=== PATIENT | male | born 1965 | race Caucasian/White ===

== ENCOUNTER 2020-06-09 02:27 | Inpatient (IN) | payer OTHER ==
[2020-06-09] MEDS ORDERED: Acetaminophen 500 MG TAB ONE (02:56)
[2020-06-09 03:35] LABS: #Lymphocytes 0.4 thou/uL (1.20-3.40); #Monocytes 0.4 thou/uL (0.11-0.59); #Neutrophils 6.1 thou/uL (1.40-6.50); %Basophils 0.2 % (0.0-1.0); %Eosinophils 0.3 % (0.0-10.0); %Lymphocytes 6.2 % (21.0-51.0); %Monocytes 6.2 % (0.0-10.0); Mean Corpuscular HGB CONC 35.7 g/dL (32.0-36.0); Mean Corpuscular Hemoglobin 33.8 pg (27.0-31.0); Mean Corpuscular Volume 94.9 fL (78.0-98.0); Mean Platelet Volume 7.7 fL (7.4-10.4); Platelet Count 171 thou/uL (130-400); RBC Distribution Width 11.4 % (11.5-14.5); Red Blood Cell (RBC) Count 4.43 mill/uL (4.70-6.10); White Blood Cell (WBC) Count 7.1 thou/uL (4.8-10.8)
[2020-06-09 03:56] LABS: ALT (SGPT) 53 U/L (8-55); AST (SGOT) 84 U/L (5-34); Albumin 3.8 g/dL (3.5-5.0); Alkaline Phosphatase 75 U/L (40-110); Anion Gap 18 mmol/L (10-20); BUN (Urea Nitrogen) 9 mg/dL (8.4-25.7); Bilirubin, Total 0.6 mg/dL (0.2-1.2); Calc. Creatinine Clearance 0 mL/min (70-130); Calcium 8.4 mg/dL (7.8-10.44); Carbon Dioxide 22 mmol/L (22-29); Chloride 86 mmol/L (98-107); Globulin 3.2 g/dL (2.4-3.5); Glucose 106 mg/dL (70-105); Potassium 4.5 mmol/L (3.5-5.1); Sodium 121 mmol/L (136-145)
[2020-06-09 04:46] LABS: Bilirubin Negative (Negative); Blood, Urine 1+ (Negative); Clarity Clear (Clear); Glucose, Urine (Dipstick) Normal (Negative); Ketone, Urine 20 mg/dL (Negative); Leukocyte Negative Leu/uL (Negative); Nitrite Negative (Negative); Protein, Urine (Dipstick) 20 mg/dL (Neg-Trace); Specific Gravity, Urine 1.009 (1.002-1.036); Urobilinogen Normal mg/dL (Less than 2); pH, Urine 5.5 (5.0-9.0)
[2020-06-09 04:47] LABS: Bacteria/HPF None Seen HPF (None Seen); RBC/HPF 0-3 HPF (0-3); Squamous Epithelial None Seen HPF (0-3); WBC/HPF 0-3 HPF (0-3)
[2020-06-09] MEDS ORDERED: Azithromycin 500 MG VIAL ONE (05:15)
[2020-06-09] MEDS ORDERED: Dexamethasone 10 MG/ML VIAL ONE (05:15)
[2020-06-09] MEDS ORDERED: cefTRIAXone\\ROCEPHIN 1 GM VIAL ONE (05:15)
--- NOTE | 2020-06-09 06:18 | PDOC.HHP ---
Hospitalist HPI - History of Present Illness sob, cough History of Present Illness: This is a 54-year-old male patient with a history of cardiac arrhythmias, atrial fibrillation status post ablation, obesity who presents with shortness of breath and cough for 7 days. Symptoms began about 7 days ago however 2 days ago he took it Covid test which was positive. With worsening shortness of breath and cough and he presented to the ED for further evaluation. He admits to dull substernal chest pain associated with cough and. He does note subjective fevers, dysuria frequency polyuria abdominal pain or diarrhea. At presentation it was noted his blood pressure was 175/96, pulse 85, respiratory 22, temperature 101.9 saturating at 95 on room air. His labs showed UA negative, D-dimer elevated at 1.41, he had his hyponatremia of 121, with chest imaging consistent with bilateral infiltrates. CTA was done which is yet to. Was given azithromycin, Tylenol and ceftriaxone. Also started on Decadron 10 mg. Received normal saline 1 L as well. Hospitalist team was consulted for admission. Hospitalist History - Past Medical History Cardiac: reports: AFIB - Past Surgical History Other Surgical History: A. fib ablation - Family History Family History: reports: no pertinent history - Social History Smoking Status: Never smoker Alcohol: reports: Occassional Living Situation: With Family - Exam General Appearance: awake alert General - other findings: anxious Eye: PERRL, anicteric sclera ENT: normocephalic atraumatic Heart: RRR, no murmur, no gallops, no rubs Respiratory - other findings: Reduced air entry bilaterally. Scattered wheezes Gastrointestinal: soft, non-tender, non-distended, normal bowel sounds Extremities: no cyanosis, no clubbing, no edema Neurological: cranial nerve grossly intact, no weakness, no focal deficits Musculoskeletal: normal tone, normal strength, no muscle wasting Psychiatric: normal affect, normal behavior, A&O x 3 Hospitalist Results - Labs Result Diagrams: 06/09/20 03:02 06/09/20 03:02 Lab results: WBC 7.1 thou/uL (4.8-10.8) 06/09/20 03:02 Hgb 15.0 g/dL (14.0-18.0) 06/09/20 03:02 Hct 42.1 % (42.0-52.0) 06/09/20 03:02 MCV 94.9 fL (78.0-98.0) 06/09/20 03:02 Plt Count 171 thou/uL (130-400) 06/09/20 03:02 Neutrophils % 87.0 % (42.0-75.0) H 06/09/20 03:02 Sodium 121 mmol/L (136-145) L 06/09/20 03:02 Potassium 4.5 mmol/L (3.5-5.1) 06/09/20 03:02 Chloride 86 mmol/L (98-107) L 06/09/20 03:02 Carbon Dioxide 22 mmol/L (22-29) 06/09/20 03:02 BUN 9 mg/dL (8.4-25.7) 06/09/20 03:02 Creatinine 0.80 mg/dL (0.7-1.3) 06/09/20 03:02 Glucose 106 mg/dL (70-105) H 06/09/20 03:02 Lactic Acid 1.8 mmol/L (0.5-2.2) 06/09/20 03:02 Calcium 8.4 mg/dL (7.8-10.44) 06/09/20 03:02 Total Bilirubin 0.6 mg/dL (0.2-1.2) 06/09/20 03:02 AST 84 U/L (5-34) H 06/09/20 03:02 ALT 53 U/L (8-55) 06/09/20 03:02 Alkaline Phosphatase 75 U/L (40-110) 06/09/20 03:02 B-Natriuretic Peptide 43.6 pg/mL (0-100) 06/09/20 03:02 Serum Total Protein 7.0 g/dL (6.0-8.3) 06/09/20 03:02 Albumin 3.8 g/dL (3.5-5.0) 06/09/20 03:02 Urine Ketones 20 mg/dL (Negative) A 06/09/20 04:15 Urine Blood 1+ (Negative) A 06/09/20 04:15 Urine Nitrite Negative (Negative) 06/09/20 04:15 Ur Leukocyte Esterase Negative Tu/uL (Negative) 06/09/20 04:15 Urine RBC 0-3 HPF (0-3) 06/09/20 04:15 Urine WBC 0-3 HPF (0-3) 06/09/20 04:15 Ur Squamous Epith Cells None Seen HPF (0-3) 06/09/20 04:15 Urine Bacteria None Seen HPF (None Seen) 06/09/20 04:15 Hospitalist H&P A/P - Plan Plan: This is a 54-year-old male patient with a history of atrial fibrillation is apixaban status post ablations presented on account of a week history of worse matthias shortness of breath and cough. He tested positive for Covid 2 days ago. Acute hypoxic respiratory failure Patient currently requiring 2 L oxygen This is in the setting of of Covid pneumonia Oxygen therapy as needed Pulmonology consult if deteriorates Pneumonia due to Covid We will start zinc vitamin D and see Continue Decadron Convalescent plasma Given his symptoms he is out of remdesivir window. We will seek ID opinion Continue monitoring. 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 Atrial fibrillation Continue anticoagulation on apixaban We will monitor. CODE STATUSfull code VT prophylaxistherapeutic on apixaban.
--- NOTE | 2020-06-09 07:51 | CT ---
"PRELIMINARY REPORT" PRELIMINARY REPORT/[facility]/EMERGENCY AFTER HOURS PROCEDURE EXAM: CTA Chest with Intravenous Contrast CLINICAL HISTORY: 54M presenting for cough, shortness of breath, and chest pain on day 7 of COVID pna. Tested positive 2 days ago. History of hypertension, and past bouts of afib, no current anticoagulation. TECHNIQUE: Axial CTA images of the chest with intravenous contrast. Three-dimensional MIP/volume rendered reform ations were performed. CONTRAST: With; ISOVUE 370,100mL COMPARISON: None provided. FINDINGS: PULMONARY ARTERIES There is no intraluminal filling defect suspicious for PE. AORTA No thoracic aortic aneurysm or dissection. LUNGS Patchy solid and groundglass opacities throughout the visualized lungs are compatible with multifocal pneumonia, consistent with COVID-19 pneumonia in the appropriate clinical setting. PLEURAL SPACES No pleural effusion. No pneumothorax. HEART AND MEDIASTINUM The heart is normal in size. No significant pericardial effusion. LYMPH NODES Right paratracheal lymph node measuring up to 1.2 cm in short axis. Left paratracheal lymph node radha uring up to 1.7 cm in short axis. Subcarinal lymph node measuring up to 1.7 cm in short axis BONES No focal osseous abnormality or acute fracture. CHEST WALL AND UPPER ABDOMEN Images through the upper abdomen are unremarkable. The chest wall is unremarkable. IMPRESSION: Patchy solid and groundglass opacities throughout the visualized lungs are compatible with multifocal pneumonia, consistent with COVID-19 pneumonia in the appropriate clinical setting. No pulmonary embolism. No thoracic aortic aneurysm or dissection. Mediastinal lymphadenopathy which is likely reactive. ELECTRONICALLY SIGNED BY: Cami Hernandez MD Jun 09, 2020 5:12:29 AM GALLERY MANAGER This report is intended for review by the ordering physician only, in accordance of law. If you recei ve this report in error, please call [facility] at [phone]. FINAL REPORT Emergent after hours CT angiogram thorax with IV contrast and 3-D reconstructions HISTORY: Patient diagnosed with COVID pneumonia 2 days ago. Patient is now having increased shortness of breath. COMPARISON: CT thorax on 04/17/2016. IMPRESSION: 1. COVID pneumonia. Patchy groundglass densities as well as areas of consolidation are seen within th e lungs bilaterally. 2. Trace bilateral pleural effusions. 3. Mediastinal and hilar lymphadenopathy likely reactive in origin. 4. No CT evidence of a pulmonary embolus. 5. Findings are in agreement with preliminary report by [facility]. Code QA Transcribed Date/Time: 06/09/2020 8:45 AM
[2020-06-09 08:10] LABS: Anion Gap 17 mmol/L (10-20); BUN (Urea Nitrogen) 9 mg/dL (8.4-25.7); Calc. Creatinine Clearance 0 mL/min (70-130); Calcium 8.5 mg/dL (7.8-10.44); Carbon Dioxide 22 mmol/L (22-29); Chloride 90 mmol/L (98-107); Glucose 113 mg/dL (70-105); Potassium 4.8 mmol/L (3.5-5.1); Sodium 124 mmol/L (136-145)
[2020-06-09] MEDS ORDERED: Furosemide 40 MG TAB PO SCH (09:00)
[2020-06-09] MEDS: Zinc Sulfate 220 MG CAP PO SCH (09:21)
[2020-06-09] MEDS: guaiFENesin/Codeine Phosphate 200 mg/20 mg 10 ml UD Cup PO PRN ×2 (09:21→18:17)
[2020-06-09] MEDS: Benzonatate 100 MG CAP PO SCH ×3 (09:21→19:36)
[2020-06-09] MEDS: Apixaban 5 MG TAB PO SCH ×2 (09:21)
[2020-06-09] MEDS: Dexamethasone 4 mg/ml Vial SLOW IVP SCH (09:21)
[2020-06-09] MEDS: Cholecalciferol (Vitamin D3) 400 UNITS TAB PO SCH (09:21)
[2020-06-09] MEDS: Ascorbic Acid 500 mg Chewable Tablet PO SCH (09:21)
--- NOTE | 2020-06-09 09:44 | RAD ---
PORTABLE CHEST: Date: 06/09/2020 HISTORY: Follow-up COVID pneumonia. COMPARISON: Chest x-ray dated 04/17/2016. FINDINGS: Heart size is enlarged. Bilateral fairly extensive lung infiltrates are seen. Some prominent changes in the right upper and left upper and lower lung vyas. IMPRESSION: Bilateral lung infiltrates compatible with COVID pneumonia. POS: OFF
[2020-06-09 11:50] LABS: Anion Gap 18 mmol/L (10-20); BUN (Urea Nitrogen) 10 mg/dL (8.4-25.7); Calc. Creatinine Clearance 151 mL/min (70-130); Calcium 8.7 mg/dL (7.8-10.44); Carbon Dioxide 19 mmol/L (22-29); Chloride 92 mmol/L (98-107); Glucose 148 mg/dL (70-105); Potassium 4.4 mmol/L (3.5-5.1); Sodium 125 mmol/L (136-145)
[2020-06-09] MEDS ORDERED: Iopamidol-370 76% 500 ML 1 ML ONE (13:22)
--- NOTE | 2020-06-09 15:04 | CON ---
DATE OF CONSULTATION: 06/09/2020 SERVICE: Nephrology. REASON FOR CONSULTATION: Hyponatremia. REQUESTING PHYSICIAN: Terry Monique MD. HISTORY OF PRESENT ILLNESS: A 54-year-old male with known history of atrial fibrillation status post ablation, obesity, amongst others, who was admitted due to worsening shortness of breath and cough for about 7 days. Associated with subjective fever, dysuria, frequency, and polyuria. The patient recently was found to be COVID positive 2 days ago. On presentation, he was found to be febrile with temperature of 101.9. He also has bilateral infiltrates on CT scan of the chest. The patient also was found to have hyponatremia with sodium of 121, necessitating Nephrology consult. PAST MEDICAL HISTORY: 1. Hypertension. 2. Obesity. 3. Paroxysmal atrial fibrillation. 4. Obesity. PAST SURGICAL HISTORY: Ablation. FAMILY HISTORY: Reviewed, but noncontributory. SOCIAL HISTORY: The patient lives with family. Never smoker. Drinks alcohol occasionally. ALLERGIES: PENICILLIN. MEDICATIONS: Prior to hospital medications: 1. Metoprolol succinate 100 mg p.o. daily. 2. Aspirin 81 mg p.o. daily. 3. Multivitamin. 4. Omeprazole 20 mg p.o. daily. REVIEW OF SYSTEMS: 12-point review of system performed was negative other than pertinent positives and negatives included in the History of Present Illness. PHYSICAL EXAMINATION: VITAL SIGNS: Temperature 99.5, pulse 83, respiratory rate 18, SpO2 of 98% on 1 L nasal cannula, blood pressure is 136/83. GENERAL: Obese male, in no obvious distress. Afebrile. Anicteric. Acyanotic. HEENT: Normocephalic, atraumatic. Oral mucosa is moist. NECK: Supple with no JVD. CARDIOVASCULAR: Regular rhythm and rate with normal heart sounds one and two. RESPIRATORY: Fair air entry bilaterally with some transmitted breath sounds. No obvious rhonchi were appreciated. GI: Full, soft, nontender, nondistended with normal bowel sounds. EXTREMITIES: Mild bilateral leg edema noted. PILOT CONTROL OPERATOR: Conscious, alert, oriented x3 with appropriate mental status. Cranial nerves II through XII are grossly intact. The patient moves all extremities. DIAGNOSTIC DATA: CBC showed WBC count of 7.1, hemoglobin of 15.0, MCV of 94.9, platelets of 171. Chemistry on presentation at 03 hours, Hai 22nd showed sodium 121, potassium 4.4, chloride 86, CO2 of 22, BUN 9, creatinine 0.80, glucose 106, calcium 8.4, total bilirubin 0.6, AST 84, ALT 53, alkaline phosphatase 75, total protein 7.0, albumin 3.8. Repeat BMP at 7 hours earlier today showed sodium 124, chloride 90, creatinine 0.82. Plasma osmolality is 352, while urine osmolality is pending at this time. Urinalysis showed light yellow clear urine with pH of 5.5, specific gravity of 1.009, normal glucose, positive blood and ketone, negative nitrites and leukocyte esterase. CT angio chest showed no intraluminal filling defect suspicious of PE. Bilateral multifocal ground-glass opacity throughout the visualized lungs is noted, compatible with multifocal pneumonia due to COVID-19 pneumonia. ASSESSMENT: 1. Hyponatremia, this is most likely due to syndrome of inappropriate antidiuretic hormone secretion in the context of acute pneumonia. 2. Hypertension, on treatment. 3. 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 4. COVID pneumonia with acute respiratory failure with hypoxia. 5. Paroxysmal cough episodes. 6. Paroxysmal atrial fibrillation, status post ablation. PLAN: 1. We will start Lasix 40 mg daily in view of possible pulmonary congestion as well as bilateral leg edema. Also, the patient has COVID pneumonia. 2. We will monitor electrolytes closely to avoid aggressive correction. 3. Continue antihypertensives and other medication. Further treatment to follow depending on hospital course. Job ID: [id number] [facility]
--- NOTE | 2020-06-09 15:37 | PDOC.HOSPP ---
- Subjective Encounter Date: 06/09/20 Encounter Time: 15:35 Subjective: Mr. Dunn was seen today in follow-up of COVID infection and hyponatremia. He notes feeling short of breath, and was coughing most of the night, and could not sleep. He also feels a bit weak as well. - Objective Vital Signs & Weight: Vital Signs (12 hours) Temp Pulse Resp BP BP Pulse Ox 06/09/20 15:30 102.2 F H 89 18 151/75 H 100 06/09/20 11:05 98.9 F 84 22 H 168/95 H 97 06/09/20 08:00 99.5 F 83 18 136/83 98 06/09/20 06:55 99.1 F 85 18 134/72 100 Weight Weight 224 lb 13.944 oz Result Diagrams: 06/09/20 03:02 06/09/20 11:12 Hospitalist ROS - Medication Medications: Active Medications Generic Name Dose Route Start Last Admin Trade Name Freq PRN Reason Stop Dose Admin Ascorbic Acid 1,000 mg 06/09/20 09:00 06/09/20 09:21 Ascorbic Acid 500 Mg Chewable Tablet PO 1,000 mg DAILY DEBBIE Administration Benzonatate 200 mg 06/09/20 09:00 06/09/20 09:21 Benzonatate 100 Mg Cap PO 200 mg TID DEBBIE Administration Cholecalciferol 400 units 06/09/20 09:00 06/09/20 09:21 Cholecalciferol (Vitamin D3) 400 Units Tab PO 400 units DAILY DEBBIE Administration Dexamethasone 8 mg 06/09/20 09:00 06/09/20 09:21 Dexamethasone 4 Mg/Ml Vial SLOW IVP 8 mg DAILY DEBBIE Administration Guaifenesin/Codeine Phosphate 10 ml 06/09/20 08:55 06/09/20 09:21 Guaifenesin/Codeine Phosphate 200 Mg/20 Mg 10 Ml Ud Cup PO 10 ml Q6H PRN Administration Cough Sodium Chloride 10 ml 06/09/20 09:00 06/09/20 09:22 Flush - Normal Saline 10 Ml Syringe IVF 10 ml Q12HR DEBBIE Administration Zinc Sulfate 220 mg 06/09/20 09:00 06/09/20 09:21 Zinc Sulfate 220 Mg Cap PO 220 mg DAILY DEBBIE Administration - Exam Eye: PERRL, anicteric sclera Heart: RRR, no murmur, no gallops, no rubs, normal peripheral pulses Respiratory: CTAB (with only an occasional rale) Gastrointestinal: soft, non-tender, non-distended, normal bowel sounds, no palpable masses, no hepatomegaly Extremities: no cyanosis, no edema (+ good dorsalis pedis pulses bilaterally) Hosp A/P (1) COVID-19 virus infection Code(s): U07.1 - COVID-19 Status: Acute (2) Hyponatremia Code(s): E87.1 - HYPO-OSMOLALITY AND HYPONATREMIA Status: Acute (3) Acute respiratory failure Code(s): J96.00 - ACUTE RESPIRATORY FAILURE, UNSP W HYPOXIA OR HYPERCAPNIA Status: Acute (4) Atrial fibrillation Code(s): I48.91 - UNSPECIFIED ATRIAL FIBRILLATION Status: Chronic - Plan * Acute respiratory failure due to COVID infection- his respiratory symptoms are mild. He senses Dyspnea, but his oxygen saturations are in the 90"s without supplemental oxygen * If his oxygen level hold, then can consider tapering Decadron * Hyponatremia- Nephrology recommendations noted. Likely from SIADH. He has been started on Lasix * Atrial fibrillation- his heart rate is stable, and he says he is NOT on anticoagulation. Will therefore discontinue Eliquis
[2020-06-09] MEDS ORDERED: Acetaminophen 325 MG TAB PO PRN (16:06)
[2020-06-09 16:07] LABS: Anion Gap 18 mmol/L (10-20); BUN (Urea Nitrogen) 10 mg/dL (8.4-25.7); Calc. Creatinine Clearance 145 mL/min (70-130); Calcium 8.7 mg/dL (7.8-10.44); Carbon Dioxide 21 mmol/L (22-29); Chloride 91 mmol/L (98-107); Glucose 175 mg/dL (70-105); Potassium 4.2 mmol/L (3.5-5.1); Sodium 126 mmol/L (136-145)
[2020-06-10] MEDS: guaiFENesin/Codeine Phosphate 200 mg/20 mg 10 ml UD Cup PO PRN ×2 (02:20→08:19)
[2020-06-10 06:36] LABS: #Lymphocytes 0.5 thou/uL (1.20-3.40); #Monocytes 0.5 thou/uL (0.11-0.59); #Neutrophils 6.9 thou/uL (1.40-6.50); %Basophils 0.1 % (0.0-1.0); %Eosinophils 0.2 % (0.0-10.0); %Lymphocytes 6.2 % (21.0-51.0); %Monocytes 6.7 % (0.0-10.0); %Neutrophils 86.8 % (42.0-75.0); Hemoglobin 15.2 g/dL (14.0-18.0); Mean Corpuscular HGB CONC 34.9 g/dL (32.0-36.0); Mean Corpuscular Hemoglobin 32.9 pg (27.0-31.0); Mean Corpuscular Volume 94.4 fL (78.0-98.0); Mean Platelet Volume 7.6 fL (7.4-10.4); Platelet Count 217 thou/uL (130-400); RBC Distribution Width 11.3 % (11.5-14.5); Red Blood Cell (RBC) Count 4.61 mill/uL (4.70-6.10); White Blood Cell (WBC) Count 7.9 thou/uL (4.8-10.8)
[2020-06-10 06:55] LABS: Anion Gap 18 mmol/L (10-20); BUN (Urea Nitrogen) 16 mg/dL (8.4-25.7); Calc. Creatinine Clearance 143 mL/min (70-130); Calcium 8.9 mg/dL (7.8-10.44); Carbon Dioxide 25 mmol/L (22-29); Chloride 90 mmol/L (98-107); Glucose 130 mg/dL (70-105); Potassium 4.2 mmol/L (3.5-5.1); Sodium 129 mmol/L (136-145)
[2020-06-10] MEDS ORDERED: Furosemide 40 MG TAB PO SCH (07:30)
[2020-06-10] MEDS ORDERED: hydrALAZINE 25 MG TAB PO PRN (07:44)
[2020-06-10] MEDS: Benzonatate 100 MG CAP PO SCH ×2 (08:13→15:48)
[2020-06-10] MEDS: Dexamethasone 4 mg/ml Vial SLOW IVP SCH (08:13)
[2020-06-10] MEDS: Ascorbic Acid 500 mg Chewable Tablet PO SCH (08:13)
[2020-06-10] MEDS: Zinc Sulfate 220 MG CAP PO SCH (08:14)
[2020-06-10] MEDS ORDERED: Ibuprofen 600 MG TAB PO PRN (08:50)
[2020-06-10] MEDS ORDERED: Metoprolol Tartrate 50 MG TAB PO SCH (09:00)
[2020-06-10] MEDS ORDERED: Dexamethasone 20 MG/5 ML VIAL SLOW IVP SCH (09:00)
[2020-06-10] MEDS ORDERED: FLU VACC QS2020-21(6MOS UP)/PF 60 MCG/0.5 ML SYRINGE IM ONE (09:00)
[2020-06-10] MEDS: Cholecalciferol (Vitamin D3) 400 UNITS TAB PO SCH (10:20)
--- NOTE | 2020-06-10 10:42 | PDOC.NEPPN ---
- Subjective Encounter Date: 06/10/20 Subjective: Seen in follow up for hyponatremia in the context of covid pneumonia. Feeling better. Denied confusion, headache, dizziness or fever. Tolerating oral intake. - Objective Vital Signs & Weight: Vital Signs (12 hours) Temp Pulse Resp BP Pulse Ox 06/10/20 08:43 99 F 74 18 136/84 98 06/10/20 08:00 98 06/10/20 05:07 98.5 F 81 20 166/83 H 99 06/10/20 00:24 98.3 F 77 20 173/101 H 96 Weight Weight 224 lb 13.944 oz Result Diagrams: 06/10/20 06:06 06/10/20 06:06 Nephrology ROS - Medication Medications: Active Medications Generic Name Dose Route Start Last Admin Trade Name Freq PRN Reason Stop Dose Admin Acetaminophen 650 mg 06/09/20 16:06 06/09/20 16:32 Acetaminophen 325 Mg Tab PO 650 mg Q4H PRN Administration Headache/Fever or Pain Ascorbic Acid 1,000 mg 06/09/20 09:00 06/10/20 08:13 Ascorbic Acid 500 Mg Chewable Tablet PO 1,000 mg DAILY DEBBIE Administration Benzonatate 200 mg 06/09/20 09:00 06/10/20 08:13 Benzonatate 100 Mg Cap PO 200 mg TID DEBBIE Administration Cholecalciferol 400 units 06/09/20 09:00 06/10/20 10:20 Cholecalciferol (Vitamin D3) 400 Units Tab PO 400 units DAILY DEBBIE Administration Dexamethasone 8 mg 06/09/20 09:00 06/10/20 08:13 Dexamethasone 4 Mg/Ml Vial SLOW IVP 8 mg DAILY DEBBIE Administration Furosemide 40 mg 06/10/20 07:30 06/10/20 08:13 Furosemide 40 Mg Tab PO 40 mg DAILY-AC DEBBIE Administration Guaifenesin/Codeine Phosphate 10 ml 06/09/20 08:55 06/10/20 08:19 Guaifenesin/Codeine Phosphate 200 Mg/20 Mg 10 Ml Ud Cup PO 10 ml Q6H PRN Administration Cough Metoprolol Succinate 50 mg 06/10/20 09:00 06/10/20 08:13 Metoprolol Succinate Xl 50 Mg Tab PO 50 mg DAILY DEBBIE Administration Sodium Chloride 10 ml 06/09/20 09:00 06/10/20 08:14 Flush - Normal Saline 10 Ml Syringe IVF 10 ml Q12HR DEBBIE Administration Zinc Sulfate 220 mg 06/09/20 09:00 06/10/20 08:14 Zinc Sulfate 220 Mg Cap PO 220 mg DAILY DEBBIE Administration - Exam General Appearance: awake alert Eye: anicteric sclera ENT: normocephalic atraumatic, moist mucosa Neck: supple, symmetric, no JVD Respiratory - other findings: fair air entry bilaterally with some transmitted sound. Cardiovascular: RRR Gastrointestinal: soft, non-distended, normal bowel sounds Extremities: no cyanosis, no edema Neurological: CN's grossly intact, no focal deficits PSYCH: A&O x 3 Nephrology Results - Labs Result Diagrams: 06/10/20 06:06 06/10/20 06:06 Lab results: WBC 7.9 thou/uL (4.8-10.8) 06/10/20 06:06 Hgb 15.2 g/dL (14.0-18.0) 06/10/20 06:06 Hct 43.5 % (42.0-52.0) 06/10/20 06:06 MCV 94.4 fL (78.0-98.0) 06/10/20 06:06 Plt Count 217 thou/uL (130-400) 06/10/20 06:06 Neutrophils % 86.8 % (42.0-75.0) H 06/10/20 06:06 Sodium 129 mmol/L (136-145) L 06/10/20 06:06 Potassium 4.2 mmol/L (3.5-5.1) 06/10/20 06:06 Chloride 90 mmol/L (98-107) L 06/10/20 06:06 Carbon Dioxide 25 mmol/L (22-29) 06/10/20 06:06 BUN 16 mg/dL (8.4-25.7) 06/10/20 06:06 Creatinine 0.84 mg/dL (0.7-1.3) 06/10/20 06:06 Glucose 130 mg/dL (70-105) H 06/10/20 06:06 Lactic Acid 1.8 mmol/L (0.5-2.2) 06/09/20 03:02 Calcium 8.9 mg/dL (7.8-10.44) 06/10/20 06:06 Total Bilirubin 0.6 mg/dL (0.2-1.2) 06/09/20 03:02 AST 84 U/L (5-34) H 06/09/20 03:02 ALT 53 U/L (8-55) 06/09/20 03:02 Alkaline Phosphatase 75 U/L (40-110) 06/09/20 03:02 B-Natriuretic Peptide 43.6 pg/mL (0-100) 06/09/20 03:02 Serum Total Protein 7.0 g/dL (6.0-8.3) 06/09/20 03:02 Albumin 3.8 g/dL (3.5-5.0) 06/09/20 03:02 Urine Ketones 20 mg/dL (Negative) A 06/09/20 04:15 Urine Blood 1+ (Negative) A 06/09/20 04:15 Urine Nitrite Negative (Negative) 06/09/20 04:15 Ur Leukocyte Esterase Negative Tu/uL (Negative) 06/09/20 04:15 Urine RBC 0-3 HPF (0-3) 06/09/20 04:15 Urine WBC 0-3 HPF (0-3) 06/09/20 04:15 Ur Squamous Epith Cells None Seen HPF (0-3) 06/09/20 04:15 Urine Bacteria None Seen HPF (None Seen) 06/09/20 04:15 Sodium 129 mmol/L (136-145) L 06/10/20 06:06 Potassium 4.2 mmol/L (3.5-5.1) 06/10/20 06:06 Chloride 90 mmol/L (98-107) L 06/10/20 06:06 Carbon Dioxide 25 mmol/L (22-29) 06/10/20 06:06 Anion Gap 18 mmol/L (10-20) 06/10/20 06:06 BUN 16 mg/dL (8.4-25.7) 06/10/20 06:06 Creatinine 0.84 mg/dL (0.7-1.3) 06/10/20 06:06 Glucose 130 mg/dL (70-105) H 06/10/20 06:06 Calcium 8.9 mg/dL (7.8-10.44) 06/10/20 06:06 Albumin 3.8 g/dL (3.5-5.0) 06/09/20 03:02 Nephrology AP PN - Plan ASSESSMENT: Hyponatremia: Due to syndrome of inappropriate antidiuretic hormone secretion in the context of acute pneumonia. 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 COVID pneumonia with acute respiratory failure with hypoxia. Paroxysmal atrial fibrillation, status post ablation. PLAN Continue lasix and fluid restriction Start metoprolol succinate 50 mg daily to get better BP control. Follow renal function and electrolytes.
--- NOTE | 2020-06-10 13:48 | PDOC.HOSPP ---
- Subjective Encounter Date: 06/10/20 Encounter Time: 13:46 Subjective: Mr. Dunn was seen today in follow-up of COVID infection and hyponatremia. He denies feeling short of breath. He does complain of cough which is constant. He also notes trouble sleeping. - Objective Vital Signs & Weight: Vital Signs (12 hours) Temp Pulse Resp BP Pulse Ox 06/10/20 08:43 99 F 74 18 136/84 98 06/10/20 08:00 98 06/10/20 05:07 98.5 F 81 20 166/83 H 99 Weight Weight 224 lb 13.944 oz Result Diagrams: 06/10/20 06:06 06/10/20 06:06 Additional Labs: Accuchecks 06/10/20 12:35 POC Glucose 151 H Hospitalist ROS - Medication Medications: Active Medications Generic Name Dose Route Start Last Admin Trade Name Freq PRN Reason Stop Dose Admin Acetaminophen 650 mg 06/09/20 16:06 06/09/20 16:32 Acetaminophen 325 Mg Tab PO 650 mg Q4H PRN Administration Headache/Fever or Pain Ascorbic Acid 1,000 mg 06/09/20 09:00 06/10/20 08:13 Ascorbic Acid 500 Mg Chewable Tablet PO 1,000 mg DAILY DEBBIE Administration Benzonatate 200 mg 06/09/20 09:00 06/10/20 08:13 Benzonatate 100 Mg Cap PO 200 mg TID DEBBIE Administration Cholecalciferol 400 units 06/09/20 09:00 06/10/20 10:20 Cholecalciferol (Vitamin D3) 400 Units Tab PO 400 units DAILY DEBBIE Administration Dexamethasone 8 mg 06/09/20 09:00 06/10/20 08:13 Dexamethasone 4 Mg/Ml Vial SLOW IVP 8 mg DAILY DEBBIE Administration Furosemide 40 mg 06/10/20 07:30 06/10/20 08:13 Furosemide 40 Mg Tab PO 40 mg DAILY-AC DEBBIE Administration Guaifenesin/Codeine Phosphate 10 ml 06/09/20 08:55 06/10/20 08:19 Guaifenesin/Codeine Phosphate 200 Mg/20 Mg 10 Ml Ud Cup PO 10 ml Q6H PRN Administration Cough Metoprolol Succinate 50 mg 06/10/20 09:00 06/10/20 08:13 Metoprolol Succinate Xl 50 Mg Tab PO 50 mg DAILY DEBBIE Administration Sodium Chloride 10 ml 06/09/20 09:00 06/10/20 08:14 Flush - Normal Saline 10 Ml Syringe IVF 10 ml Q12HR DEBBIE Administration Zinc Sulfate 220 mg 06/09/20 09:00 06/10/20 08:14 Zinc Sulfate 220 Mg Cap PO 220 mg DAILY DEBBIE Administration - Exam Eye: PERRL, anicteric sclera Heart: RRR, no murmur, no gallops, no rubs, normal peripheral pulses Respiratory: rales (at the right base) Gastrointestinal: soft, non-tender, non-distended, normal bowel sounds, no palpable masses, no hepatomegaly Extremities: no cyanosis, no edema (good pulses bilaterally) Hosp A/P (1) COVID-19 virus infection Code(s): U07.1 - COVID-19 Status: Acute (2) Hyponatremia Code(s): E87.1 - HYPO-OSMOLALITY AND HYPONATREMIA Status: Acute (3) Acute respiratory failure Code(s): J96.00 - ACUTE RESPIRATORY FAILURE, UNSP W HYPOXIA OR HYPERCAPNIA Status: Acute (4) Atrial fibrillation Code(s): I48.91 - UNSPECIFIED ATRIAL FIBRILLATION Status: Chronic - Plan * Acute respiratory failure due to COVID infection- his respiratory symptoms are mild. He is not requiring oxygen for the second day * Hyponatremia- improved * Stable for discharge home and close follow-up.
--- NOTE | 2020-06-10 15:55 | PDOC.DS.DS ---
Provider - Provider Date of Admission: 06/09/20 06:48 Date of Discharge: 06/10/20 Admitting Provider: Terry Monique MD Consultations: Nephrology Primary Care Physician: Ross Joyce MD Course - Hospital Course Hospital Course: Mr. Dunn is a 54-year-old gentleman that has a history of atrial fibrillation status post ablation. He presented to the emergency room after he had problems with difficulty breathing. About a week ago he had a Covid test which was positive. He also is noticing some fever at home. And also a significant cough. He was evaluated in the emergency room and had a CT angiogram of the chest. This was negative for pulmonary embolism however it did show bilateral groundglass opacities in the lungs. He also was found to be hyponatremic. He did not require any supplemental oxygen and he was admitted primarily due to the hyponatremia. His serum sodium level was 121. He was admitted and evaluated by nephrology. It was felt that the hyponatremia was due to the syndrome of inappropriate ADH secretion. He was placed on Lasix and improved during the course of the hospital stay. He never required any supplemental oxygen his inflammatory markers remained low. And he was able to be discharged home. He is to follow-up with Dr. REBOLLEDO on June 23 to have go over his serum sodium level and also with his primary care physician in approximately 2 weeks. Pertinent Studies: CTA of the chest Resuscitation Status: 06/09/20 06:34 Resuscitation Status Routine Resuscitation Status: FULL: Full Resuscitation - Labs Lab Results: 06/10/20 06:06 06/10/20 06:06 Abnormal Lab Results - Last 48 hrs 06/09/20 03:02: Sodium 121 L, Chloride 86 L, AST 84 H 06/09/20 03:02: D-Dimer 1.41 H 06/09/20 03:02: RBC 4.43 L, MCH 33.8 H, RDW 11.4 L, Neutrophils % 87.0 H, Lymphocytes % 6.2 L, Lymphocytes # 0.4 L 06/09/20 04:15: Urine Ketones 20 A, Urine Blood 1+ A 06/09/20 04:15: Urine Osmolality 271 L 06/09/20 06:54: Serum Osmolality 252 L 06/09/20 07:41: Sodium 124 L, Chloride 90 L 06/09/20 11:12: Sodium 125 L, Chloride 92 L, Carbon Dioxide 19 L 06/09/20 15:42: Sodium 126 L, Chloride 91 L, Carbon Dioxide 21 L 06/10/20 06:06: Sodium 129 L, Chloride 90 L 06/10/20 06:06: RBC 4.61 L, MCH 32.9 H, RDW 11.3 L, Neutrophils % 86.8 H, Lymphocytes % 6.2 L, Neutrophils # 6.9 H, Lymphocytes # 0.5 L Microbiology - Entire Visit 06/09/20 04:15 Urine voided Urine Culture - Preliminary NO GROWTH AT 24 HOURS 06/09/20 03:12 Venous blood - Left Arm Blood Culture - Preliminary Specimen has been received and culture in progress. No Growth to date. 06/09/20 03:02 Venous blood - Right Arm Blood Culture - Preliminary Specimen has been received and culture in progress. No Growth to date. 06/09/20 03:15 Nasal swab Influenza Types A,B Direct EIA - Final - Physical Exam Vitals: Vital Signs (12 hours) Temp Pulse Resp BP Pulse Ox 06/10/20 13:00 98.6 F 75 18 137/84 97 06/10/20 08:43 99 F 74 18 136/84 98 06/10/20 08:00 98 06/10/20 05:07 98.5 F 81 20 166/83 H 99 Weight Weight 224 lb 13.944 oz Physical Exam: The patient was seen and examined on the day of discharge. Problem - Problem (1) COVID-19 virus infection Code(s): U07.1 - COVID-19 Status: Acute (2) Hyponatremia Code(s): E87.1 - HYPO-OSMOLALITY AND HYPONATREMIA Status: Acute (3) Acute respiratory failure Code(s): J96.00 - ACUTE RESPIRATORY FAILURE, UNSP W HYPOXIA OR HYPERCAPNIA Status: Acute (4) Atrial fibrillation Code(s): I48.91 - UNSPECIFIED ATRIAL FIBRILLATION Status: Chronic Plan - Discharge Medications Prescriptions: Melatonin 10 mg PO HS PRN #20 tab PRN Reason: Insomnia guaiFENesin/Codeine Phosphate [Robitussin AC] 10 ml PO Q4HR PRN #150 ml PRN Reason: Cough Benzonatate [Tessalon] 100 mg PO TID PRN #30 cap PRN Reason: Cough Home Medications: Medication Instructions Recorded Confirmed Type Apixaban [Eliquis] 5 mg PO BID 04/17/16 04/18/16 History Meloxicam 7.5 mg PO DAILY PRN 04/17/16 04/18/16 History Multivitamin [Multivitamins] 1 cap PO DAILY 04/17/16 06/09/20 History Omeprazole 20 mg PO DAILY 04/17/16 06/09/20 History Sotalol HCl [Betapace] 80 mg PO BID 04/17/16 04/18/16 History Furosemide 1 tab PO DAILY PRN 04/18/16 04/18/16 History Potassium Chloride [K-Dur] 1 tab PO DAILY PRN 04/18/16 04/18/16 History Aspirin Chewable [Aspirin Chewable 81 mg PO DAILY 06/09/20 06/09/20 History Tablet] Metoprolol Tartrate [Lopressor] 100 mg PO DAILY 06/09/20 06/09/20 History Benzonatate [Tessalon] 100 mg PO TID PRN #30 cap 06/10/20 Rx Melatonin 10 mg PO HS PRN #20 tab 06/10/20 Rx guaiFENesin/Codeine Phosphate 10 ml PO Q4HR PRN #150 ml 06/10/20 Rx [Robitussin AC] Allergies: Penicillins Allergy (Verified 06/09/20 07:33) Rash - Discharge Instructions Discharge Instructions:: Follow-up with Dr. Ontiveros on 06/23/2020 at 10:30AM Check BMP on 06/22/2020 YOUR PRESCRIPTIONS WERE SENT TO: [facility] [address] [place] [address] Activity:: Activity as Tolerated Nourishment:: Heart Healthy Diet - Follow up Plan Referrals: Ross Joyce MD [Primary Care Provider] - Arelsi Ontiveros MD [Active] - Disposition: HOME Quality - Care Measures CORE MEASURES:: N/A
[2020-06-10 16:17] VITALS: BP 154/87; TEMP 98.3
== END 2020-06-10 16:44 | disposition home or self-care (01) | DRG 177 ==
LOC: ERS 02:27 → T4-A 06:48
PROVIDERS: ADMIT Student in an Organized Health Care Education/Training Program; ATTEND Internal Medicine
DX: U07.1 COVID-19 (principal); J12.89 Other viral pneumonia; J96.01 Acute respiratory failure with hypoxia; E22.2 Syndrome of inappropriate secretion of antidiuretic hormone; I48.0 Paroxysmal atrial fibrillation; I10 Essential (primary) hypertension; Z79.01 Long term (current) use of anticoagulants; Z88.0 Allergy status to penicillin
CPT/HCPCS: 36415; 36416; 71045; 71275; 80048; 80053; 81003; 81015; 83605; 83880; 83930; 83935; 84300; 85025; 85379; 87040; 87086; 87804; 93005; J0456; J0696; J1100; Q9967

== ENCOUNTER 2020-06-12 14:01 | Inpatient (IN) | payer OTHER ==
[2020-06-12] MEDS ORDERED: Albuterol 200 PUFF (6.7GM INHALER) ONE (14:42)
[2020-06-12 15:05] LABS: Hemoglobin 15.3 g/dL (14.0-18.0); Mean Corpuscular HGB CONC 34.7 g/dL (32.0-36.0); Mean Corpuscular Hemoglobin 32.5 pg (27.0-31.0); Mean Corpuscular Volume 93.7 fL (78.0-98.0); Platelet Count 202 thou/uL (130-400); RBC Distribution Width 11.3 % (11.5-14.5); White Blood Cell (WBC) Count 13.1 thou/uL (4.8-10.8)
[2020-06-12 15:27] LABS: ALT (SGPT) 63 U/L (8-55); AST (SGOT) 111 U/L (5-34); Albumin 3.5 g/dL (3.5-5.0); Alkaline Phosphatase 74 U/L (40-110); Anion Gap 17 mmol/L (10-20); BUN (Urea Nitrogen) 14 mg/dL (8.4-25.7); Bilirubin, Total 0.8 mg/dL (0.2-1.2); Calc. Creatinine Clearance 0 mL/min (70-130); Calcium 8.4 mg/dL (7.8-10.44); Carbon Dioxide 23 mmol/L (22-29); Chloride 87 mmol/L (98-107); Globulin 3.5 g/dL (2.4-3.5); Glucose 109 mg/dL (70-105); Potassium 3.7 mmol/L (3.5-5.1); Sodium 123 mmol/L (136-145)
[2020-06-12 15:29] LABS: Band 6 % (5-11); Lymphocytes 2 % (21-51); MDiff Complete? YES; Neutrophil 92 % (42-75); Platelet Morphology Comment Appears Adequate; RBC Morphology Normal; Vacuoles SLIGHT
--- NOTE | 2020-06-12 15:39 | RAD ---
Chest AP view INDICATION: History of Covid positive diagnosis with cough COMPARISON: Prior exam dated June 09, 2020 FINDINGS: Lungs: There is worsening bilateral pneumonia Cardiac silhouette: There is stable [id number] cardiomegaly Pulmonary vasculature: Normal Pleural spaces: No pleural effusion or pneumothorax is demonstrated. Upper abdomen: No abnormality seen. Osseous structures: No acute osseous abnormality. Additional findings: None. IMPRESSION: Worsening bilateral pneumonia. Stable [id number] cardiomegaly.
--- NOTE | 2020-06-12 16:00 | PDOC.HHP ---
Hospitalist HPI - History of Present Illness Shortness of breath History of Present Illness: Mr. Dunn is a 54-year-old male with a past medical history of A. fib status post ablation, hypertension, GERD, SIADH who presents to the hospital for worsening shortness of breath. Patient was recently discharged 2 days ago for which she was originally admitted for hyponatremia and mild COVID-19 pneumonia. Patient had no oxygen requirement and his hyponatremia was thought to be from SIADH so he was discharged home at that time. However, patient's respiratory symptoms worsened and he became short of breath day after discharge and represented to the emergency room. Patient initially tested positive for Covid on 06/07/2020, however his symptoms began more than 10 days ago. Patient endorses worsening cough, fevers, chills, myalgias and shortness of breath. When resting patient's O2 saturation is at 94%, however when he is moving about the room it drops into the high 80s low 90s. He denies chest pain, palpitations. Denies dizziness, lightheadedness, weakness or numbness. Denies nausea vomiting diarrhea. Emergency room initial vital signs 170/80, 74, 32, 99.6, 94% on room air. White blood cell count 13.1. H/H 15.3/44.1. BUN/CR 14/0.78. Sodium 123, potassium 3.7. Glucose 109. EKG showed normal sinus rhythm with no signs of ischemia. Initial troponin 0 0.012. Chest x-ray showed worsening of bilateral patchy pneumonia. Patient received Proventil inhaler in the emergency room. Patient admitted to hospitalist service for further evaluation and treatment of his worsening Covid 19 pneumonia and hyponatremia. Hospitalist ROS - Review of Systems Constitutional: reports: fever, chills, sweats, weakness, malaise Eyes: denies: pain, vision change, conjunctivae inflammation, eyelid inflamma tion, redness, other ENT: denies: ear pain, ear discharge, nose pain, nose discharge, nose congestion, mouth pain, mouth swelling, throat pain, throat swelling, other Respiratory: reports: cough, shortness of breath, SOB with excertion. denies: dry, hemoptysis, pleuritic pain, sputum, wheezing, other Cardiovascular: denies: chest pain, palpitations, orthopnea, paroxysmal noc. dyspnea, edema, light headedness, other Gastrointestinal: denies: nausea, vomiting, abdominal pain, diarrhea, constipati on, melena, hematochezia, other Genitourinary: denies: dysuria, frequency, incontinence, hematuria, retention, other Musculoskeletal: denies: neck pain, shoulder pain, arm pain, back pain, hand pain, leg pain, foot pain, other Skin: denies: rash, lesions, [place], bruising, other Neurological: denies: weakness, numbness, incoordination, change in speech, confusion, seizures, other - Medication Medications: Home medications include Metoprolol Aspirin Omeprazole Allergy to penicillin Hospitalist History - Past Medical History Other Medical History: Past medical history of Atrial fibrillation status post ablation Hypertension GERD SIADH in setting of pneumonia - Past Surgical History Other Surgical History: Past surgical history includes Ablation for atrial fibrillation, cerebral blood clot removal as a child - Family History Other Family History: No pertinent family history - Social History Smoking Status: Current every day smoker Tobacco Type: chewing tobacco Alcohol: reports: Heavy Drugs: reports: none Living Situation: With Family Activity level: independent ambulation - Exam General Appearance: NAD, awake alert Eye: PERRL, anicteric sclera ENT: normocephalic atraumatic, no oropharyngeal lesions, moist mucosa Neck: supple, symmetric, no JVD, no thyromegaly, no lymphadenopathy, no carotid bruit Heart: RRR, no murmur, no gallops, no rubs, normal peripheral pulses Respiratory: no wheezes, normal chest expansion, no tachypnea Respiratory - other findings: Rales throughout Gastrointestinal: soft, non-tender, non-distended, normal bowel sounds, no palpable masses, no hepatomegaly, no splenomegaly, no bruit Extremities: no cyanosis, no clubbing, no edema Skin: normal turgor, no lesions, no rashes Neurological: cranial nerve grossly intact, normal sensation to touch, no weakness, no focal deficits, no new deficit Musculoskeletal: normal tone, normal strength, no muscle wasting Psychiatric: normal affect, normal behavior, A&O x 3 Hospitalist Results - Labs Result Diagrams: 06/12/20 14:49 06/12/20 14:49 Lab results: WBC 13.1 thou/uL (4.8-10.8) H 06/12/20 14:49 Hgb 15.3 g/dL (14.0-18.0) 06/12/20 14:49 Hct 44.1 % (42.0-52.0) 06/12/20 14:49 MCV 93.7 fL (78.0-98.0) 06/12/20 14:49 Plt Count 202 thou/uL (130-400) 06/12/20 14:49 Band Neuts % (Manual) 6 % (5-11) 06/12/20 14:49 Sodium 123 mmol/L (136-145) L 06/12/20 14:49 Potassium 3.7 mmol/L (3.5-5.1) 06/12/20 14:49 Chloride 87 mmol/L (98-107) L 06/12/20 14:49 Carbon Dioxide 23 mmol/L (22-29) 06/12/20 14:49 BUN 14 mg/dL (8.4-25.7) 06/12/20 14:49 Creatinine 0.78 mg/dL (0.7-1.3) 06/12/20 14:49 Glucose 109 mg/dL (70-105) H 06/12/20 14:49 Calcium 8.4 mg/dL (7.8-10.44) 06/12/20 14:49 Total Bilirubin 0.8 mg/dL (0.2-1.2) 06/12/20 14:49 AST 111 U/L (5-34) H 06/12/20 14:49 ALT 63 U/L (8-55) H 06/12/20 14:49 Alkaline Phosphatase 74 U/L (40-110) 06/12/20 14:49 Troponin I 0.012 ng/mL (< 0.028) 06/12/20 14:49 B-Natriuretic Peptide 112.5 pg/mL (0-100) H 06/12/20 14:49 Serum Total Protein 7.0 g/dL (6.0-8.3) 06/12/20 14:49 Albumin 3.5 g/dL (3.5-5.0) 06/12/20 14:49 Hospitalist H&P A/P - Plan Plan: COVID-19 pneumonia Patient has a positive for COVID-19 pneumonia on 06/01/2020, however his symptoms began over 10 days ago. Patient was recently admitted for hyponatremia and incidental Covid on 06/09/2020 and was discharged on 06/10/2020. Patient however had worsening of his respiratory symptoms and shortness of breath. Was desaturating down to high 80s low 90s in the emergency room, now requiring oxygen. Plan Decadron, patient is out of window for remdesivir Ceftriaxone, azithromycin Supplemental oxygen Tylenol, Robitussin Vitamin C, zinc We will obtain baseline inflammatory markers Acute hypoxic respiratory failure Patient with acute hypoxic respiratory failure secondary to moderate to severe COVID-19 pneumonia. Patient with new oxygen requirement now on 2 L of oxygen n sid cannula to maintain O2 sat. We will continue supplemental oxygen and closely monitor respiratory status. Treatment as above. Plan Supplemental oxygen Treatment as above Closely monitor respiratory status Hyponatremia Patient hyponatremic to 123. Patient recently admitted for hyponatremia 2 days ago which was thought to be SIADH in setting of pneumonia. Dr. Ontiveros of nephrology is following. Will obtain serum awesome's, urine studies and reassess. Patient appears euvolemic to hypervolemic with mild bilateral lower extremity edema. Will place patient on fluid restriction and will closely monitor sodium levels being careful not to overcorrect. Plan Serum osm Urine osm, and urine electrolytes Fluid restriction Nephrology consult, recommendations appreciated History of atrial fibrillation History of A. fib status post ablation. Patient currently on metoprolol. EKG showed normal sinus rhythm. Plan -Continue metoprolol -Telemetry monitoring Hypertension Continue home hypertensive medications once dosages are confirmed GERD Continue home PPI DVT prophylaxis: Lovenox FULL CODE Case discussed with Dr. Burrell.
[2020-06-12] MEDS ORDERED: Acetaminophen 325 MG TAB PO PRN (16:18)
[2020-06-12] MEDS ORDERED: Loperamide HCl 2 MG CAP PO PRN (16:18)
[2020-06-12] MEDS ORDERED: Acetaminophen 650 MG Suppository PR PRN (16:18)
[2020-06-12] MEDS ORDERED: Dexamethasone 4 mg/ml Vial ONE (16:34)
[2020-06-12 17:52] LABS: CRP (Inflammatory) 12.82 mg/dL (= or < 0.5); Sodium 120 mmol/L (136-145)
[2020-06-12] MEDS ORDERED: Azithromycin 500 MG in Sodium Chloride 0.9% 250 ML 250 ML IVPB SCH (18:00)
--- NOTE | 2020-06-12 19:43 | PDOC.NEPPN ---
- Subjective Encounter Date: 06/12/20 Subjective: 54 y/o male who was just discharged from the hospital 2 days after treatment with improvement of covid pneumonia, now readmitted due to worsening SOB and hypoxia. Patient was seen by nephrology during recent hospital for hyponatremia which was felt to be SIADH related to multifocal pneumonia. On readmssion, sodium is lower at 121 necessitating re consultation. Reported compliance with fluid restriction at home. No dizziness, mental ststus change or falls. - Objective Vital Signs & Weight: Vital Signs (12 hours) Temp Pulse Resp BP Pulse Ox 06/12/20 18:10 99.0 F 85 24 H 179/81 H 94 L Result Diagrams: 06/12/20 14:49 06/12/20 17:10 - Exam General Appearance: awake alert Eye: anicteric sclera ENT: normocephalic atraumatic, moist mucosa Neck: supple, symmetric, no JVD Respiratory: tachypneic Respiratory - other findings: scattered crackles both lungs. Increased work of breathing Cardiovascular: RRR Gastrointestinal: soft, non-tender, non-distended, normal bowel sounds Extremities - other findings: bilateral leg fullness and trace edema noted Neurological: CN's grossly intact, no focal deficits PSYCH: A&O x 3 Nephrology Results - Labs Result Diagrams: 06/12/20 14:49 06/12/20 17:10 Lab results: WBC 13.1 thou/uL (4.8-10.8) H 06/12/20 14:49 Hgb 15.3 g/dL (14.0-18.0) 06/12/20 14:49 Hct 44.1 % (42.0-52.0) 06/12/20 14:49 MCV 93.7 fL (78.0-98.0) 06/12/20 14:49 Plt Count 202 thou/uL (130-400) 06/12/20 14:49 Band Neuts % (Manual) 6 % (5-11) 06/12/20 14:49 ESR Westergren 38 mm/hr (Less than 20) H 06/12/20 17:10 Sodium 120 mmol/L (136-145) L 06/12/20 17:10 Potassium 3.7 mmol/L (3.5-5.1) 06/12/20 14:49 Chloride 87 mmol/L (98-107) L 06/12/20 14:49 Carbon Dioxide 23 mmol/L (22-29) 06/12/20 14:49 BUN 14 mg/dL (8.4-25.7) 06/12/20 14:49 Creatinine 0.78 mg/dL (0.7-1.3) 06/12/20 14:49 Glucose 109 mg/dL (70-105) H 06/12/20 14:49 Calcium 8.4 mg/dL (7.8-10.44) 06/12/20 14:49 Total Bilirubin 0.8 mg/dL (0.2-1.2) 06/12/20 14:49 AST 111 U/L (5-34) H 06/12/20 14:49 ALT 63 U/L (8-55) H 06/12/20 14:49 Alkaline Phosphatase 74 U/L (40-110) 06/12/20 14:49 Troponin I 0.012 ng/mL (< 0.028) 06/12/20 14:49 C-Reactive Protein 12.82 mg/dL (= or < 0.5) H 06/12/20 17:10 B-Natriuretic Peptide 112.5 pg/mL (0-100) H 06/12/20 14:49 Serum Total Protein 7.0 g/dL (6.0-8.3) 06/12/20 14:49 Albumin 3.5 g/dL (3.5-5.0) 06/12/20 14:49 Sodium 120 mmol/L (136-145) L 06/12/20 17:10 Potassium 3.7 mmol/L (3.5-5.1) 06/12/20 14:49 Chloride 87 mmol/L (98-107) L 06/12/20 14:49 Carbon Dioxide 23 mmol/L (22-29) 06/12/20 14:49 Anion Gap 17 mmol/L (10-20) 06/12/20 14:49 BUN 14 mg/dL (8.4-25.7) 06/12/20 14:49 Creatinine 0.78 mg/dL (0.7-1.3) 06/12/20 14:49 Glucose 109 mg/dL (70-105) H 06/12/20 14:49 Calcium 8.4 mg/dL (7.8-10.44) 06/12/20 14:49 Albumin 3.5 g/dL (3.5-5.0) 06/12/20 14:49 Nephrology AP PN - Plan ASSESSMENT Hyponatremia: worse. was 129 on 06/10/2020. Now down to 120. No neurological deficit. SIADH related to pneumonia Multifocal pneumonia due to COVID Acute respiratory failure with hypoxia. PLAN Give a dose of lasix. Start salt tablets. Other treatments as per primary attending. Follow electrolytes.
[2020-06-12] MEDS ORDERED: Furosemide 40 MG/4 ML VIAL SLOW IVP SCH (19:45)
[2020-06-12 20:07] VITALS: BMI 34.9
[2020-06-12] MEDS: cefTRIAXone\\ROCEPHIN 1 GM in Sodium Chloride 0.9% 100 ML IVPB SCH (20:27)
[2020-06-12] MEDS: Sodium Chloride 1 GM TAB PO SCH (20:29)
[2020-06-12 20:56] LABS: Sodium 121 mmol/L (136-145)
[2020-06-12] MEDS ORDERED: Sotalol HCl 80 MG TAB PO SCH (21:00)
[2020-06-12] MEDS ORDERED: Apixaban 5 MG TAB PO SCH (21:00)
[2020-06-12 21:20] LABS: SARS-CoV-2 NAA Rapid Test DETECTED (NotDetected)
[2020-06-12 22:31] LABS: Potassium, Urine 24.2 mmol/L
[2020-06-13] MEDS ORDERED: hydrALAZINE 20 MG/ML VIAL SLOW IVP SCH (00:30)
[2020-06-13] MEDS: Benzonatate 100 MG CAP PO PRN (00:34)
[2020-06-13 01:33] LABS: Sodium 119 mmol/L (136-145)
[2020-06-13 07:36] LABS: Anion Gap 20 mmol/L (10-20); BUN (Urea Nitrogen) 15 mg/dL (8.4-25.7); Calc. Creatinine Clearance 160 mL/min (70-130); Calcium 8.4 mg/dL (7.8-10.44); Carbon Dioxide 21 mmol/L (22-29); Chloride 85 mmol/L (98-107); Glucose 105 mg/dL (70-105); Potassium 4.2 mmol/L (3.5-5.1); Sodium 122 mmol/L (136-145)
[2020-06-13 08:05] LABS: Hemoglobin 14.4 g/dL (14.0-18.0); Mean Corpuscular HGB CONC 34.5 g/dL (32.0-36.0); Mean Corpuscular Hemoglobin 32.3 pg (27.0-31.0); Mean Corpuscular Volume 93.6 fL (78.0-98.0); Mean Platelet Volume 8.6 fL (7.4-10.4); Platelet Count 201 thou/uL (130-400); RBC Distribution Width 11.5 % (11.5-14.5); Red Blood Cell (RBC) Count 4.46 mill/uL (4.70-6.10); White Blood Cell (WBC) Count 11.5 thou/uL (4.8-10.8)
[2020-06-13] MEDS: Multivit, Therapeutic 1 TAB PO SCH (08:40)
[2020-06-13] MEDS ORDERED: Amlodipine 5 MG TAB PO SCH (09:00)
[2020-06-13] MEDS ORDERED: Furosemide 20 MG TAB PO SCH ×2 (09:00)
[2020-06-13] MEDS ORDERED: Metoprolol Tartrate 50 MG TAB PO SCH (09:00)
[2020-06-13] MEDS: Dexamethasone 4 MG TAB PO SCH (10:10)
[2020-06-13] MEDS: Sodium Chloride 1 GM TAB PO SCH ×3 (10:10→20:40)
[2020-06-13] MEDS: Aspirin Chewable 81 MG TAB PO SCH (10:10)
[2020-06-13] MEDS: Furosemide 40 MG TAB PO SCH (10:11)
[2020-06-13] MEDS: Zinc Sulfate 220 MG CAP PO SCH (10:11)
[2020-06-13 10:29] LABS: Sodium 120 mmol/L (136-145)
[2020-06-13 10:49] LABS: Band 4 % (5-11); Lymphocytes 2 % (21-51); MDiff Complete? YES; Monocytes 10 % (0-10); Neutrophil 80 % (42-75); Platelet Morphology Comment Appears Adequate; Reactive Lymphocytes 4 % (0-10)
[2020-06-13] MEDS: Ascorbic Acid 500 mg Chewable Tablet PO SCH (12:19)
[2020-06-13 13:07] LABS: Sodium 122 mmol/L (136-145)
--- NOTE | 2020-06-13 14:02 | PDOC.NEPPN ---
- Subjective Encounter Date: 06/13/20 Subjective: Seen and examined. feeling marginally better. No fever, nausea or vomiting. - Objective Vital Signs & Weight: Vital Signs (12 hours) Temp Pulse Resp BP Pulse Ox 06/13/20 12:25 156/89 H 06/13/20 07:22 99.0 F 84 18 189/68 H 96 06/13/20 04:00 99.3 F 100 20 161/96 H 93 L 06/13/20 02:47 99.4 F 22 H 92 L Weight Weight 230 lb Most Recent Monitor Data Heart Rate from ECG 88 NIBP 182/102 Respiration from ECG 22 I&O: 06/12/20 06/13/20 06/14/20 06:59 06:59 06:59 Intake Total 240 Balance 240 Result Diagrams: 06/13/20 06:34 06/13/20 12:29 Nephrology ROS - Medication Medications: Active Medications Generic Name Dose Route Start Last Admin Trade Name Freq PRN Reason Stop Dose Admin Amlodipine Besylate 5 mg 06/13/20 09:00 06/13/20 12:19 Amlodipine 5 Mg Tab PO 5 mg DAILY DEBBIE Administration Ascorbic Acid 1,000 mg 06/13/20 09:00 06/13/20 12:19 Ascorbic Acid 500 Mg Chewable Tablet PO 1,000 mg DAILY DEBBIE Administration Aspirin 81 mg 06/13/20 09:00 06/13/20 10:10 Aspirin Chewable 81 Mg Tab PO 81 mg DAILY DEBBIE Administration Benzonatate 100 mg 06/13/20 00:20 06/13/20 00:34 Benzonatate 100 Mg Cap PO 100 mg TIDPRN PRN Administration Cough Dexamethasone 6 mg 06/13/20 08:00 06/13/20 10:10 Dexamethasone 4 Mg Tab PO 6 mg QAM-WM DEBBIE Administration Furosemide 40 mg 06/13/20 09:00 06/13/20 10:11 Furosemide 40 Mg Tab PO 40 mg DAILY DEBBIE Administration Ceftriaxone Sodium 1 gm/ 100 mls @ 200 mls/hr 06/12/20 17:00 06/12/20 20:27 Sodium Chloride IVPB 100 mls 1700 DEBBIE Administration Multivitamins 1 tab 06/13/20 09:00 06/13/20 08:40 Multivit, Therapeutic 1 Tab PO 1 tab DAILY DEBBIE Administration Pantoprazole Sodium 40 mg 06/13/20 09:00 06/13/20 08:41 Pantoprazole 40 Mg Tab PO Not Given DAILY DEBBIE Sodium Chloride 1 gm 06/12/20 21:00 06/13/20 10:10 Sodium Chloride 1 Gm Tab PO 1 gm TID DEBBIE Administration Zinc Sulfate 220 mg 06/13/20 09:00 06/13/20 10:11 Zinc Sulfate 220 Mg Cap PO 220 mg DAILY DEBBIE Administration - Exam General Appearance: awake alert Eye: anicteric sclera ENT: normocephalic atraumatic, moist mucosa Neck: symmetric, no JVD Respiratory: tachypneic Respiratory - other findings: fair air entry bilaterally with scattered transmitted sound and crackles. Cardiovascular: RRR Gastrointestinal: soft, non-tender, non-distended, normal bowel sounds Extremities: no edema Neurological: CN's grossly intact, no focal deficits PSYCH: A&O x 3 Nephrology Results - Labs Result Diagrams: 06/13/20 06:34 06/13/20 12:29 Lab results: WBC 11.5 thou/uL (4.8-10.8) H 06/13/20 06:34 Hgb 14.4 g/dL (14.0-18.0) 06/13/20 06:34 Hct 41.8 % (42.0-52.0) L 06/13/20 06:34 MCV 93.6 fL (78.0-98.0) 06/13/20 06:34 Plt Count 201 thou/uL (130-400) 06/13/20 06:34 Band Neuts % (Manual) 4 % (5-11) L 06/13/20 06:34 ESR Westergren 38 mm/hr (Less than 20) H 06/12/20 17:10 Sodium 122 mmol/L (136-145) L 06/13/20 12:29 Potassium 4.2 mmol/L (3.5-5.1) 06/13/20 06:34 Chloride 85 mmol/L (98-107) L 06/13/20 06:34 Carbon Dioxide 21 mmol/L (22-29) L 06/13/20 06:34 BUN 15 mg/dL (8.4-25.7) 06/13/20 06:34 Creatinine 0.77 mg/dL (0.7-1.3) 06/13/20 06:34 Glucose 105 mg/dL (70-105) 06/13/20 06:34 Calcium 8.4 mg/dL (7.8-10.44) 06/13/20 06:34 Total Bilirubin 0.8 mg/dL (0.2-1.2) 06/12/20 14:49 AST 111 U/L (5-34) H 06/12/20 14:49 ALT 63 U/L (8-55) H 06/12/20 14:49 Alkaline Phosphatase 74 U/L (40-110) 06/12/20 14:49 Troponin I 0.012 ng/mL (< 0.028) 06/12/20 14:49 C-Reactive Protein 12.82 mg/dL (= or < 0.5) H 06/12/20 17:10 B-Natriuretic Peptide 112.5 pg/mL (0-100) H 06/12/20 14:49 Serum Total Protein 7.0 g/dL (6.0-8.3) 06/12/20 14:49 Albumin 3.5 g/dL (3.5-5.0) 06/12/20 14:49 Sodium 122 mmol/L (136-145) L 06/13/20 12:29 Potassium 4.2 mmol/L (3.5-5.1) 06/13/20 06:34 Chloride 85 mmol/L (98-107) L 06/13/20 06:34 Carbon Dioxide 21 mmol/L (22-29) L 06/13/20 06:34 Anion Gap 20 mmol/L (10-20) 06/13/20 06:34 BUN 15 mg/dL (8.4-25.7) 06/13/20 06:34 Creatinine 0.77 mg/dL (0.7-1.3) 06/13/20 06:34 Glucose 105 mg/dL (70-105) 06/13/20 06:34 Calcium 8.4 mg/dL (7.8-10.44) 06/13/20 06:34 Albumin 3.5 g/dL (3.5-5.0) 06/12/20 14:49 Nephrology AP PN - Plan ASSESSMENT Hyponatremia: worse. was 129 on 06/10/2020. Now down to 120. No neurological deficit. SIADH related to pneumonia HTN Multifocal pneumonia due to COVID Acute respiratory failure with hypoxia. PLAN Continue salt tablet and fluid restriction. Continue low dose lasix. Restart metoprolol. Start amlodipine to get better BP control. Other treatments as per primary attending. Follow electrolytes.
[2020-06-13] MEDS: cefTRIAXone\\ROCEPHIN 1 GM in Sodium Chloride 0.9% 100 ML IVPB SCH (16:37)
--- NOTE | 2020-06-13 17:47 | PDOC.HOSPP ---
- Subjective Encounter Date: 06/13/20 Encounter Time: 17:45 Subjective: f/u for COVID PNA on O2 @ 4L/min NC/Zithromax/Dexamethasone/Vit C/Zinc. Feels weak and SOB. - Objective Vital Signs & Weight: Vital Signs (12 hours) Temp Pulse Resp BP Pulse Ox 06/13/20 12:25 156/89 H 06/13/20 07:22 99.0 F 84 18 189/68 H 96 Weight Weight 230 lb Most Recent Monitor Data Heart Rate from ECG 88 NIBP 182/102 Respiration from ECG 22 I&O: 06/12/20 06/13/20 06/14/20 06:59 06:59 06:59 Intake Total 240 Balance 240 Result Diagrams: 06/13/20 06:34 06/13/20 12:29 Additional Labs: Laboratory Tests 06/12/20 06/12/20 06/12/20 14:49 14:49 17:10 WBC 13.1 H Neutrophils % (Manual) 92 H Sodium 123 L 120 L SARS-CoV-2 Rap RNA(RT-PCR) 06/12/20 06/12/20 06/13/20 20:00 20:29 00:42 WBC Neutrophils % (Manual) Sodium 121 L 119 L* SARS-CoV-2 Rap RNA(RT-PCR) DETECTED A* 06/13/20 06/13/20 06:34 09:49 WBC Neutrophils % (Manual) Sodium 122 L 120 L SARS-CoV-2 Rap RNA(RT-PCR) Radiology Reviewed by me: Yes (PCXR - multifocal PNA) Hospitalist ROS - Medication Medications: Active Medications Generic Name Dose Route Start Last Admin Trade Name Freq PRN Reason Stop Dose Admin Amlodipine Besylate 5 mg 06/13/20 09:00 06/13/20 12:19 Amlodipine 5 Mg Tab PO 5 mg DAILY DEBBIE Administration Ascorbic Acid 1,000 mg 06/13/20 09:00 06/13/20 12:19 Ascorbic Acid 500 Mg Chewable Tablet PO 1,000 mg DAILY DEBBIE Administration Aspirin 81 mg 06/13/20 09:00 06/13/20 10:10 Aspirin Chewable 81 Mg Tab PO 81 mg DAILY DEBBIE Administration Benzonatate 100 mg 06/13/20 00:20 06/13/20 00:34 Benzonatate 100 Mg Cap PO 100 mg TIDPRN PRN Administration Cough Dexamethasone 6 mg 06/13/20 08:00 06/13/20 10:10 Dexamethasone 4 Mg Tab PO 6 mg QAM-WM DEBBIE Administration Furosemide 40 mg 06/13/20 09:00 06/13/20 10:11 Furosemide 40 Mg Tab PO 40 mg DAILY DEBBIE Administration Ceftriaxone Sodium 1 gm/ 100 mls @ 200 mls/hr 06/12/20 17:00 06/13/20 16:37 Sodium Chloride IVPB 100 mls 1700 DEBBIE Administration Multivitamins 1 tab 06/13/20 09:00 06/13/20 08:40 Multivit, Therapeutic 1 Tab PO 1 tab DAILY DEBBIE Administration Pantoprazole Sodium 40 mg 06/13/20 09:00 06/13/20 08:41 Pantoprazole 40 Mg Tab PO Not Given DAILY DEBBIE Sodium Chloride 10 ml 06/12/20 16:18 06/13/20 16:40 Flush - Normal Saline 10 Ml Syringe IVF 10 ml PRN PRN Administration Saline Flush Sodium Chloride 1 gm 06/12/20 21:00 06/13/20 16:37 Sodium Chloride 1 Gm Tab PO 1 gm TID DEBBIE Administration Zinc Sulfate 220 mg 06/13/20 09:00 06/13/20 10:11 Zinc Sulfate 220 Mg Cap PO 220 mg DAILY DEBBIE Administration - Exam General Appearance: NAD, awake alert Eye: PERRL, anicteric sclera ENT: normocephalic atraumatic, no oropharyngeal lesions Neck: supple, symmetric, no JVD, no thyromegaly Heart: RRR, no murmur, no gallops, no rubs, normal peripheral pulses Heart - other findings: S1, S2 Respiratory: no wheezes, tachypneic Respiratory - other findings: scattered rhonchi Gastrointestinal: soft, non-tender, non-distended, normal bowel sounds, no palpable masses, no hepatomegaly Extremities: no cyanosis, no clubbing, no edema Skin: normal turgor, no lesions Neurological: cranial nerve grossly intact, no new deficit Musculoskeletal: normal tone, normal strength, no muscle wasting Psychiatric: normal affect, A&O x 3 Hosp A/P (1) Pneumonia due to COVID-19 virus Code(s): U07.1 - COVID-19; J12.89 - OTHER VIRAL PNEUMONIA Status: Acute Plan: Continue Rocephin/Zithromax/Dexamethasone/Vit C/Zinc/O2 @ 4L/min, isolation protocol (2) Acute respiratory failure with hypoxia Code(s): J96.01 - ACUTE RESPIRATORY FAILURE WITH HYPOXIA Status: Acute Plan: Continue mgmt as outlined in #1, O2 @ 4L/min NC (3) Hyponatremia Code(s): E87.1 - HYPO-OSMOLALITY AND HYPONATREMIA Status: Acute Plan: Likely SIADH, continue Na+ supplementation, Lasix, serial Na+ monitoring (4) HTN (hypertension) Code(s): I10 - ESSENTIAL (PRIMARY) HYPERTENSION Status: Chronic Qualifiers: Hypertension type: essential hypertension Qualified Code(s): I10 - Essential (primary) hypertension Plan: Resume home BP regimen, serial monitoring - Plan continue antibiotics, respiratory therapy, out of bed/ambulate, DVT proph w/SCDs Stable currently Continue Remdesivir infusion Continue Zithromax/Rocephin/Dexamethasone O2 supplementation Continue Lovenox AM lab: BMP, CBC, Ferritin, D-dimer, CRP
[2020-06-13] MEDS ORDERED: Benzonatate 100 MG CAP PO PRN (17:50)
[2020-06-13] MEDS: Azithromycin 250 MG TAB PO SCH (19:42)
[2020-06-13] MEDS: guaiFENesin/Codeine 200 mg/20 mg 10 ml Cup PO PRN (19:49)
[2020-06-14] MEDS: guaiFENesin/Codeine 200 mg/20 mg 10 ml Cup PO PRN ×2 (00:09→11:18)
[2020-06-14] MEDS: Melatonin 3 MG TAB PO PRN (00:09)
[2020-06-14 06:33] LABS: #Lymphocytes 0.5 thou/uL (1.20-3.40); #Monocytes 0.8 thou/uL (0.11-0.59); #Neutrophils 11.9 thou/uL (1.40-6.50); %Eosinophils 0.1 % (0.0-10.0); %Lymphocytes 3.6 % (21.0-51.0); %Monocytes 6.1 % (0.0-10.0); %Neutrophils 90.2 % (42.0-75.0); Hemoglobin 14.6 g/dL (14.0-18.0); Mean Corpuscular HGB CONC 33.8 g/dL (32.0-36.0); Mean Corpuscular Hemoglobin 32.1 pg (27.0-31.0); Mean Corpuscular Volume 95.2 fL (78.0-98.0); Mean Platelet Volume 8.5 fL (7.4-10.4); Platelet Count 252 thou/uL (130-400); RBC Distribution Width 11.6 % (11.5-14.5); Red Blood Cell (RBC) Count 4.55 mill/uL (4.70-6.10); White Blood Cell (WBC) Count 13.1 thou/uL (4.8-10.8)
[2020-06-14 06:49] LABS: Anion Gap 16 mmol/L (10-20); BUN (Urea Nitrogen) 17 mg/dL (8.4-25.7); Calc. Creatinine Clearance 178 mL/min (70-130); Calcium 8.6 mg/dL (7.8-10.44); Carbon Dioxide 25 mmol/L (22-29); Chloride 88 mmol/L (98-107); Glucose 121 mg/dL (70-105); Sodium 125 mmol/L (136-145)
[2020-06-14] MEDS: Dexamethasone 4 MG TAB PO SCH (08:53)
[2020-06-14] MEDS: Aspirin Chewable 81 MG TAB PO SCH (08:55)
[2020-06-14] MEDS: Zinc Sulfate 220 MG CAP PO SCH (08:55)
[2020-06-14] MEDS: Multivit, Therapeutic 1 TAB PO SCH (08:56)
[2020-06-14] MEDS: Ascorbic Acid 500 mg Chewable Tablet PO SCH (08:56)
[2020-06-14] MEDS: Furosemide 40 MG TAB PO SCH (08:56)
[2020-06-14] MEDS ORDERED: Amlodipine 10 MG TAB PO SCH (09:00)
[2020-06-14] MEDS: Sodium Chloride 1 GM TAB PO SCH ×3 (09:04→21:11)
[2020-06-14] MEDS: Benzonatate 100 MG CAP PO PRN (11:18)
--- NOTE | 2020-06-14 12:55 | PDOC.NEPPN ---
- Subjective Encounter Date: 06/14/20 Subjective: Seen in follow up for hyponatremia and HTN. Admitted due to worsening SOB and hypoxia in the context of covid infection. Feeling somewhat better. Cough and SOB is better. Still on oxygen. - Objective Vital Signs & Weight: Vital Signs (12 hours) Temp Pulse Resp BP Pulse Ox 06/14/20 12:33 90 134/76 06/14/20 08:56 90 06/14/20 07:18 98.4 F 90 18 170/84 H 94 L 06/14/20 05:51 98.3 F 86 22 H 159/93 H 90 L Weight Weight 230 lb Most Recent Monitor Data Heart Rate from ECG 88 NIBP 182/102 Respiration from ECG 22 I&O: 06/13/20 06/14/20 06/15/20 06:59 06:59 06:59 Intake Total 240 120 Balance 240 120 Result Diagrams: 06/14/20 05:46 06/14/20 05:46 Nephrology ROS - Medication Medications: Active Medications Generic Name Dose Route Start Last Admin Trade Name Freq PRN Reason Stop Dose Admin Amlodipine Besylate 10 mg 06/14/20 09:00 06/14/20 08:56 Amlodipine 10 Mg Tab PO 10 mg DAILY DEBBIE Administration Ascorbic Acid 1,000 mg 06/13/20 09:00 06/14/20 08:56 Ascorbic Acid 500 Mg Chewable Tablet PO 1,000 mg DAILY DEBBIE Administration Aspirin 81 mg 06/13/20 09:00 06/14/20 08:55 Aspirin Chewable 81 Mg Tab PO 81 mg DAILY DEBIBE Administration Azithromycin 500 mg 06/13/20 18:00 06/13/20 19:42 Azithromycin 250 Mg Tab PO 500 mg Q24HR DEBBIE Administration Benzonatate 100 mg 06/13/20 00:20 06/14/20 11:18 Benzonatate 100 Mg Cap PO 100 mg TIDPRN PRN Administration Cough Dexamethasone 6 mg 06/13/20 08:00 06/14/20 08:53 Dexamethasone 4 Mg Tab PO 6 mg QAM-WM DEBBIE Administration Furosemide 40 mg 06/13/20 09:00 06/14/20 08:56 Furosemide 40 Mg Tab PO 40 mg DAILY DEBBIE Administration Guaifenesin/Codeine Phosphate 10 ml 06/13/20 17:50 06/14/20 11:18 Guaifenesin/Codeine Phosphate 200 Mg/20 Mg 10 Ml Ud Cup PO 10 ml Q4H PRN Administration Cough Ceftriaxone Sodium 1 gm/ 100 mls @ 200 mls/hr 06/12/20 17:00 06/13/20 16:37 Sodium Chloride IVPB 100 mls 1700 DEBBIE Administration Melatonin 9 mg 06/13/20 18:03 06/14/20 00:09 Melatonin 3 Mg Tab PO 9 mg HSPRN PRN Administration Insomnia Metoprolol Succinate 200 mg 06/14/20 09:00 06/14/20 08:56 Metoprolol Succinate Xl 100 Mg Tab PO 200 mg DAILY DEBBIE Administration Multivitamins 1 tab 06/13/20 09:00 06/14/20 08:56 Multivit, Therapeutic 1 Tab PO 1 tab DAILY DEBBIE Administration Pantoprazole Sodium 40 mg 06/13/20 09:00 06/14/20 08:56 Pantoprazole 40 Mg Tab PO 40 mg DAILY DEBBIE Administration Sodium Chloride 10 ml 06/12/20 16:18 06/13/20 16:40 Flush - Normal Saline 10 Ml Syringe IVF 10 ml PRN PRN Administration Saline Flush Sodium Chloride 1 gm 06/12/20 21:00 06/14/20 09:04 Sodium Chloride 1 Gm Tab PO 1 gm TID DEBBIE Administration Zinc Sulfate 220 mg 06/13/20 09:00 06/14/20 08:55 Zinc Sulfate 220 Mg Cap PO 220 mg DAILY DEBBIE Administration - Exam General Appearance: awake alert Eye: anicteric sclera ENT: normocephalic atraumatic, moist mucosa Neck: supple, symmetric, no JVD Respiratory: no wheezes, no ronchi Respiratory - other findings: fair air entry bilaterally with transmitted sound and few crackles. Cardiovascular: RRR Gastrointestinal: soft, non-tender, normal bowel sounds Gastrointestinal - other findings: obese Extremities: no edema Neurological: CN's grossly intact PSYCH: A&O x 3 Nephrology Results - Labs Result Diagrams: 06/14/20 05:46 06/14/20 05:46 Lab results: WBC 13.1 thou/uL (4.8-10.8) H 06/14/20 05:46 Hgb 14.6 g/dL (14.0-18.0) 06/14/20 05:46 Hct 43.3 % (42.0-52.0) 06/14/20 05:46 MCV 95.2 fL (78.0-98.0) 06/14/20 05:46 Plt Count 252 thou/uL (130-400) 06/14/20 05:46 Neutrophils % 90.2 % (42.0-75.0) H 06/14/20 05:46 Band Neuts % (Manual) 4 % (5-11) L 06/13/20 06:34 ESR Westergren 38 mm/hr (Less than 20) H 06/12/20 17:10 Sodium 125 mmol/L (136-145) L 06/14/20 05:46 Potassium 4.0 mmol/L (3.5-5.1) 06/14/20 05:46 Chloride 88 mmol/L (98-107) L 06/14/20 05:46 Carbon Dioxide 25 mmol/L (22-29) 06/14/20 05:46 BUN 17 mg/dL (8.4-25.7) 06/14/20 05:46 Creatinine 0.69 mg/dL (0.7-1.3) L 06/14/20 05:46 Glucose 121 mg/dL (70-105) H 06/14/20 05:46 Calcium 8.6 mg/dL (7.8-10.44) 06/14/20 05:46 Total Bilirubin 0.8 mg/dL (0.2-1.2) 06/12/20 14:49 AST 111 U/L (5-34) H 06/12/20 14:49 ALT 63 U/L (8-55) H 06/12/20 14:49 Alkaline Phosphatase 74 U/L (40-110) 06/12/20 14:49 Troponin I 0.012 ng/mL (< 0.028) 06/12/20 14:49 C-Reactive Protein 12.80 mg/dL (= or < 0.5) H 06/14/20 05:46 B-Natriuretic Peptide 112.5 pg/mL (0-100) H 06/12/20 14:49 Serum Total Protein 7.0 g/dL (6.0-8.3) 06/12/20 14:49 Albumin 3.5 g/dL (3.5-5.0) 06/12/20 14:49 Sodium 125 mmol/L (136-145) L 06/14/20 05:46 Potassium 4.0 mmol/L (3.5-5.1) 06/14/20 05:46 Chloride 88 mmol/L (98-107) L 06/14/20 05:46 Carbon Dioxide 25 mmol/L (22-29) 06/14/20 05:46 Anion Gap 16 mmol/L (10-20) 06/14/20 05:46 BUN 17 mg/dL (8.4-25.7) 06/14/20 05:46 Creatinine 0.69 mg/dL (0.7-1.3) L 06/14/20 05:46 Glucose 121 mg/dL (70-105) H 06/14/20 05:46 Calcium 8.6 mg/dL (7.8-10.44) 06/14/20 05:46 Albumin 3.5 g/dL (3.5-5.0) 06/12/20 14:49 Nephrology AP PN - Plan ASSESSMENT Hyponatremia: Improving. 125 today. 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 Multifocal pneumonia due to COVID Acute respiratory failure with hypoxia. PLAN Increase amlodipine to 10 mg daily to get better BP control. Continue lasix, salt tablet and fluid restriction. Continue metoprolol succinate Other treatments as per primary attending. Follow electrolytes.
--- NOTE | 2020-06-14 13:51 | PDOC.HOSPP ---
- Subjective Encounter Date: 06/14/20 Encounter Time: 13:45 Subjective: f/u for COVID PNA and hypoxic resp failure. Receiving Zithromax/Rocephin/Dexamethasone/Lovenox/Vit C/Zinc/O2 4L/min. - Objective Vital Signs & Weight: Vital Signs (12 hours) Temp Pulse Resp BP Pulse Ox 06/14/20 12:33 90 134/76 06/14/20 08:56 90 06/14/20 07:18 98.4 F 90 18 170/84 H 94 L 06/14/20 05:51 98.3 F 86 22 H 159/93 H 90 L Weight Weight 230 lb Most Recent Monitor Data Heart Rate from ECG 88 NIBP 182/102 Respiration from ECG 22 I&O: 06/13/20 06/14/20 06/15/20 06:59 06:59 06:59 Intake Total 240 120 Balance 240 120 Result Diagrams: 06/14/20 05:46 06/14/20 05:46 Additional Labs: Laboratory Tests 06/12/20 06/12/20 06/12/20 14:49 14:49 17:10 WBC 13.1 H Neutrophils % (Manual) 92 H D-Dimer Sodium 123 L 120 L Ferritin C-Reactive Protein SARS-CoV-2 Rap RNA(RT-PCR) 06/12/20 06/12/20 06/13/20 20:00 20:29 00:42 WBC Neutrophils % (Manual) D-Dimer Sodium 121 L 119 L* Ferritin C-Reactive Protein SARS-CoV-2 Rap RNA(RT-PCR) DETECTED A* 06/13/20 06/13/20 06/13/20 06:34 09:49 12:29 WBC Neutrophils % (Manual) D-Dimer Sodium 122 L 120 L 122 L Ferritin C-Reactive Protein SARS-CoV-2 Rap RNA(RT-PCR) 06/14/20 06/14/20 06/14/20 05:46 05:46 05:46 WBC Neutrophils % (Manual) D-Dimer 6.37 H Sodium Ferritin 2173.07 H C-Reactive Protein 12.80 H SARS-CoV-2 Rap RNA(RT-PCR) Hospitalist ROS - Medication Medications: Active Medications Generic Name Dose Route Start Last Admin Trade Name Freq PRN Reason Stop Dose Admin Amlodipine Besylate 10 mg 06/14/20 09:00 06/14/20 08:56 Amlodipine 10 Mg Tab PO 10 mg DAILY DEBBIE Administration Ascorbic Acid 1,000 mg 06/13/20 09:00 06/14/20 08:56 Ascorbic Acid 500 Mg Chewable Tablet PO 1,000 mg DAILY DEBBIE Administration Aspirin 81 mg 06/13/20 09:00 06/14/20 08:55 Aspirin Chewable 81 Mg Tab PO 81 mg DAILY DEBBIE Administration Azithromycin 500 mg 06/13/20 18:00 06/13/20 19:42 Azithromycin 250 Mg Tab PO 500 mg Q24HR DEBBIE Administration Benzonatate 100 mg 06/13/20 00:20 06/14/20 11:18 Benzonatate 100 Mg Cap PO 100 mg TIDPRN PRN Administration Cough Dexamethasone 6 mg 06/13/20 08:00 06/14/20 08:53 Dexamethasone 4 Mg Tab PO 6 mg QAM-WM DEBBIE Administration Furosemide 40 mg 06/13/20 09:00 06/14/20 08:56 Furosemide 40 Mg Tab PO 40 mg DAILY DEBBIE Administration Guaifenesin/Codeine Phosphate 10 ml 06/13/20 17:50 06/14/20 11:18 Guaifenesin/Codeine Phosphate 200 Mg/20 Mg 10 Ml Ud Cup PO 10 ml Q4H PRN Administration Cough Ceftriaxone Sodium 1 gm/ 100 mls @ 200 mls/hr 06/12/20 17:00 06/13/20 16:37 Sodium Chloride IVPB 100 mls 1700 DEBBIE Administration Melatonin 9 mg 06/13/20 18:03 06/14/20 00:09 Melatonin 3 Mg Tab PO 9 mg HSPRN PRN Administration Insomnia Metoprolol Succinate 200 mg 06/14/20 09:00 06/14/20 08:56 Metoprolol Succinate Xl 100 Mg Tab PO 200 mg DAILY DEBBIE Administration Multivitamins 1 tab 06/13/20 09:00 06/14/20 08:56 Multivit, Therapeutic 1 Tab PO 1 tab DAILY DEBBIE Administration Pantoprazole Sodium 40 mg 06/13/20 09:00 06/14/20 08:56 Pantoprazole 40 Mg Tab PO 40 mg DAILY DEBBIE Administration Sodium Chloride 10 ml 06/12/20 16:18 06/13/20 16:40 Flush - Normal Saline 10 Ml Syringe IVF 10 ml PRN PRN Administration Saline Flush Sodium Chloride 1 gm 06/12/20 21:00 06/14/20 09:04 Sodium Chloride 1 Gm Tab PO 1 gm TID DEBBIE Administration Zinc Sulfate 220 mg 06/13/20 09:00 06/14/20 08:55 Zinc Sulfate 220 Mg Cap PO 220 mg DAILY DEBBIE Administration - Exam General Appearance: NAD, awake alert Eye: PERRL, anicteric sclera ENT: normocephalic atraumatic, no oropharyngeal lesions Neck: supple, symmetric, no JVD, no thyromegaly, no lymphadenopathy Heart: RRR, no gallops, no rubs, normal peripheral pulses Heart - other findings: S1, S2 Respiratory: no tachypnea, wheezes Respiratory - other findings: few scattered rhonchi Gastrointestinal: soft, non-tender, non-distended, normal bowel sounds, no palpable masses Extremities: no cyanosis, no clubbing, no edema Skin: normal turgor, no lesions Neurological: cranial nerve grossly intact, no new deficit Musculoskeletal: normal tone, normal strength, no muscle wasting Psychiatric: normal affect, A&O x 3 Hosp A/P (1) Pneumonia due to COVID-19 virus Code(s): U07.1 - COVID-19; J12.89 - OTHER VIRAL PNEUMONIA Status: Acute Plan: Continue Rocephin/Zithromax/Dexamethasone/Lovenox/Vit C/Zinc/O2 supplementation (2) Acute respiratory failure with hypoxia Code(s): J96.01 - ACUTE RESPIRATORY FAILURE WITH HYPOXIA Status: Acute Plan: Continue O2 supplementation, may need home O2 (3) Hyponatremia Code(s): E87.1 - HYPO-OSMOLALITY AND HYPONATREMIA Status: Acute Plan: Improving, likely due to ETOH abuse (4) HTN (hypertension) Code(s): I10 - ESSENTIAL (PRIMARY) HYPERTENSION Status: Chronic Qualifiers: Hypertension type: essential hypertension Qualified Code(s): I10 - Essential (primary) hypertension Plan: Continue home BP regimen, serial monitoring (5) Alcohol abuse Code(s): F10.10 - ALCOHOL ABUSE, UNCOMPLICATED Status: Chronic Plan: Start Ativan 1mg po q4h PRN withdrawal sx - 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
[2020-06-14] MEDS ORDERED: Senokot S 8.6-50 MG TAB PO SCH (14:15)
[2020-06-14] MEDS ORDERED: Polyethylene Glycol 3350 17 GM Packet PO SCH (14:15)
[2020-06-14] MEDS: Lorazepam 1 MG TAB PO PRN (14:27)
[2020-06-14] MEDS: Benzonatate 100 MG CAP PO SCH ×2 (14:37→21:12)
[2020-06-14] MEDS: cefTRIAXone\\ROCEPHIN 1 GM in Sodium Chloride 0.9% 100 ML IVPB SCH (17:16)
[2020-06-14] MEDS: Azithromycin 250 MG TAB PO SCH (17:17)
[2020-06-14] MEDS ORDERED: FLU VACC QS2020-21(6MOS UP)/PF 60 MCG/0.5 ML SYRINGE IM ONE (21:00)
[2020-06-14] MEDS: Senokot S 8.6-50 MG TAB PO SCH (21:11)
[2020-06-15] MEDS: Melatonin 3 MG TAB PO PRN (01:16)
[2020-06-15] MEDS: guaiFENesin/Codeine 200 mg/20 mg 10 ml Cup PO PRN (01:16)
[2020-06-15 07:12] LABS: Hemoglobin 13.6 g/dL (14.0-18.0); Mean Corpuscular HGB CONC 35.3 g/dL (32.0-36.0); Mean Corpuscular Hemoglobin 33.3 pg (27.0-31.0); Mean Corpuscular Volume 94.3 fL (78.0-98.0); Mean Platelet Volume 8.6 fL (7.4-10.4); Platelet Count 281 thou/uL (130-400); RBC Distribution Width 11.4 % (11.5-14.5); Red Blood Cell (RBC) Count 4.09 mill/uL (4.70-6.10); White Blood Cell (WBC) Count 12.8 thou/uL (4.8-10.8)
[2020-06-15 07:13] LABS: Anion Gap 17 mmol/L (10-20); BUN (Urea Nitrogen) 20 mg/dL (8.4-25.7); Calc. Creatinine Clearance 199 mL/min (70-130); Calcium 8.3 mg/dL (7.8-10.44); Carbon Dioxide 23 mmol/L (22-29); Chloride 88 mmol/L (98-107); Glucose 128 mg/dL (70-105); Sodium 124 mmol/L (136-145)
[2020-06-15 08:35] LABS: Band 14 % (5-11); Lymphocytes 4 % (21-51); MDiff Complete? YES; Monocytes 8 % (0-10); Neutrophil 68 % (42-75); Platelet Morphology Comment Appears Adequate; RBC Morphology Normal; Reactive Lymphocytes 6 % (0-10)
[2020-06-15] MEDS: Dexamethasone 4 MG TAB PO SCH (09:58)
[2020-06-15] MEDS: Sodium Chloride 1 GM TAB PO SCH ×3 (10:00→22:27)
[2020-06-15] MEDS: Senokot S 8.6-50 MG TAB PO SCH ×2 (10:00→22:27)
[2020-06-15] MEDS: Ascorbic Acid 500 mg Chewable Tablet PO SCH (10:00)
[2020-06-15] MEDS: Benzonatate 100 MG CAP PO SCH ×3 (10:01→22:26)
[2020-06-15] MEDS: NIFEdipine XL 60 MG TAB PO SCH (10:01)
[2020-06-15] MEDS: Aspirin Chewable 81 MG TAB PO SCH (10:01)
[2020-06-15] MEDS: Zinc Sulfate 220 MG CAP PO SCH (10:02)
[2020-06-15] MEDS: Furosemide 40 MG TAB PO SCH (10:02)
[2020-06-15] MEDS: Multivit, Therapeutic 1 TAB PO SCH (10:02)
[2020-06-15] MEDS: Polyethylene Glycol 3350 17 GM Packet PO SCH (10:03)
--- NOTE | 2020-06-15 15:14 | PDOC.NEPPN ---
- Subjective Encounter Date: 06/15/20 Subjective: Hypoxia is worse requiring more oxygen supplementation. Also has bilateral leg edema. - Objective Vital Signs & Weight: Vital Signs (12 hours) Temp Pulse Resp BP BP Pulse Ox 06/15/20 10:01 78 150/88 H 06/15/20 08:00 98.1 F 83 24 H 144/88 H 91 L 06/15/20 04:00 93 L Weight Weight 230 lb Most Recent Monitor Data Heart Rate from ECG 88 NIBP 182/102 Respiration from ECG 22 I&O: 06/14/20 06/15/20 06/16/20 06:59 06:59 06:59 Intake Total 3350 Balance 3350 Result Diagrams: 06/15/20 06:11 06/15/20 06:11 Nephrology ROS - Medication Medications: Active Medications Generic Name Dose Route Start Last Admin Trade Name Freq PRN Reason Stop Dose Admin Ascorbic Acid 1,000 mg 06/13/20 09:00 06/15/20 10:00 Ascorbic Acid 500 Mg Chewable Tablet PO 1,000 mg DAILY DEBBIE Administration Aspirin 81 mg 06/13/20 09:00 06/15/20 10:01 Aspirin Chewable 81 Mg Tab PO 81 mg DAILY DEBBIE Administration Azithromycin 500 mg 06/13/20 18:00 06/14/20 17:17 Azithromycin 250 Mg Tab PO 500 mg Q24HR DEBBIE Administration Benzonatate 100 mg 06/14/20 15:00 06/15/20 10:01 Benzonatate 100 Mg Cap PO 100 mg TID DEBBIE Administration Dexamethasone 6 mg 06/13/20 08:00 06/15/20 09:58 Dexamethasone 4 Mg Tab PO 6 mg QAM-WM DEBBIE Administration Furosemide 40 mg 06/13/20 09:00 06/15/20 10:02 Furosemide 40 Mg Tab PO 40 mg DAILY DEBBIE Administration Guaifenesin/Codeine Phosphate 10 ml 06/13/20 17:50 06/15/20 01:16 Guaifenesin/Codeine Phosphate 200 Mg/20 Mg 10 Ml Ud Cup PO 10 ml Q4H PRN Administration Cough Ceftriaxone Sodium 1 gm/ 100 mls @ 200 mls/hr 06/12/20 17:00 06/14/20 17:16 Sodium Chloride IVPB 100 mls 1700 DEBBIE Administration Lorazepam 1 mg 06/14/20 13:44 06/14/20 14:27 Lorazepam 1 Mg Tab PO 1 mg Q4H PRN Administration Alcohol Withdrawal Melatonin 9 mg 06/13/20 18:03 06/15/20 01:16 Melatonin 3 Mg Tab PO 9 mg HSPRN PRN Administration Insomnia Metoprolol Succinate 200 mg 06/14/20 09:00 06/15/20 10:01 Metoprolol Succinate Xl 100 Mg Tab PO 200 mg DAILY DEBBIE Administration Multivitamins 1 tab 06/13/20 09:00 06/15/20 10:02 Multivit, Therapeutic 1 Tab PO 1 tab DAILY DEBBIE Administration Nifedipine 60 mg 06/15/20 09:00 06/15/20 10:01 Nifedipine Xl 60 Mg Tab PO 60 mg DAILY DEBBIE Administration Pantoprazole Sodium 40 mg 06/13/20 09:00 06/15/20 10:01 Pantoprazole 40 Mg Tab PO 40 mg DAILY DEBBIE Administration Polyethylene Glycol 17 gm 06/15/20 09:00 06/15/20 10:03 Polyethylene Glycol 3350 17 Gm Packet PO 17 gm DAILY DEBBIE Administration Senna/Docusate Sodium 1 tab 06/14/20 21:00 06/15/20 10:00 Senokot S 8.6-50 Mg Tab PO 1 tab BID DEBBIE Administration Sodium Chloride 10 ml 06/12/20 16:18 06/13/20 16:40 Flush - Normal Saline 10 Ml Syringe IVF 10 ml PRN PRN Administration Saline Flush Sodium Chloride 1 gm 06/12/20 21:00 06/15/20 10:00 Sodium Chloride 1 Gm Tab PO 1 gm TID DEBBIE Administration Zinc Sulfate 220 mg 06/13/20 09:00 06/15/20 10:02 Zinc Sulfate 220 Mg Cap PO 220 mg DAILY DEBBIE Administration - Exam General Appearance: awake alert Eye: anicteric sclera ENT: normocephalic atraumatic, moist mucosa Neck: symmetric Respiratory - other findings: Fair air entry with bilateral crackles Cardiovascular: RRR Gastrointestinal: soft, non-distended, normal bowel sounds Extremities - other findings: mild to moderate bilateral leg edema Neurological: CN's grossly intact, no focal deficits PSYCH: A&O x 3 Nephrology Results - Labs Result Diagrams: 06/15/20 06:11 06/15/20 06:11 Lab results: WBC 12.8 thou/uL (4.8-10.8) H 06/15/20 06:11 Hgb 13.6 g/dL (14.0-18.0) L 06/15/20 06:11 Hct 38.6 % (42.0-52.0) L 06/15/20 06:11 MCV 94.3 fL (78.0-98.0) 06/15/20 06:11 Plt Count 281 thou/uL (130-400) 06/15/20 06:11 Neutrophils % 90.2 % (42.0-75.0) H 06/14/20 05:46 Band Neuts % (Manual) 14 % (5-11) H 06/15/20 06:11 ESR Westergren 38 mm/hr (Less than 20) H 06/12/20 17:10 Sodium 124 mmol/L (136-145) L 06/15/20 06:11 Potassium 4.0 mmol/L (3.5-5.1) 06/15/20 06:11 Chloride 88 mmol/L (98-107) L 06/15/20 06:11 Carbon Dioxide 23 mmol/L (22-29) 06/15/20 06:11 BUN 20 mg/dL (8.4-25.7) 06/15/20 06:11 Creatinine 0.62 mg/dL (0.7-1.3) L 06/15/20 06:11 Glucose 128 mg/dL (70-105) H 06/15/20 06:11 Calcium 8.3 mg/dL (7.8-10.44) 06/15/20 06:11 Total Bilirubin 0.8 mg/dL (0.2-1.2) 06/12/20 14:49 AST 111 U/L (5-34) H 06/12/20 14:49 ALT 63 U/L (8-55) H 06/12/20 14:49 Alkaline Phosphatase 74 U/L (40-110) 06/12/20 14:49 Troponin I 0.012 ng/mL (< 0.028) 06/12/20 14:49 C-Reactive Protein 8.20 mg/dL (= or < 0.5) H 06/15/20 06:11 B-Natriuretic Peptide 112.5 pg/mL (0-100) H 06/12/20 14:49 Serum Total Protein 7.0 g/dL (6.0-8.3) 06/12/20 14:49 Albumin 3.5 g/dL (3.5-5.0) 06/12/20 14:49 Sodium 124 mmol/L (136-145) L 06/15/20 06:11 Potassium 4.0 mmol/L (3.5-5.1) 06/15/20 06:11 Chloride 88 mmol/L (98-107) L 06/15/20 06:11 Carbon Dioxide 23 mmol/L (22-29) 06/15/20 06:11 Anion Gap 17 mmol/L (10-20) 06/15/20 06:11 BUN 20 mg/dL (8.4-25.7) 06/15/20 06:11 Creatinine 0.62 mg/dL (0.7-1.3) L 06/15/20 06:11 Glucose 128 mg/dL (70-105) H 06/15/20 06:11 Calcium 8.3 mg/dL (7.8-10.44) 06/15/20 06:11 Albumin 3.5 g/dL (3.5-5.0) 06/12/20 14:49 Nephrology AP PN - Plan ASSESSMENT Hyponatremia:sodium is dowm. Patient took in 3350 cc of fluid last 24 hours while he was supposed to be on 1500 fluid restriction. 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 Multifocal pneumonia due to COVID Acute respiratory failure with hypoxia. Bilateral leg edema PLAN Substitute amlodipine with nifedipine to get better BP control. Add lasix 40 mg IV x 1 Need to be compliant with fluid restriction re emphasised. Continue lasix, salt tablet and fluid restriction. Other treatments as per primary attending. Follow electrolytes.
[2020-06-15] MEDS ORDERED: Furosemide 40 MG/4 ML VIAL SLOW IVP SCH (15:15)
--- NOTE | 2020-06-15 15:32 | PDOC.HOSPP ---
- Subjective Encounter Date: 06/15/20 Encounter Time: 15:30 Subjective: f/u for COVID PNA with hypoxic resp failure now on high-flow O2 @ 50L/min receiving Zithromax/Rocephin/Dexamethasone/Vit C/Zinc. - Objective Vital Signs & Weight: Vital Signs (12 hours) Temp Pulse Resp BP BP Pulse Ox 06/15/20 10:01 78 150/88 H 06/15/20 08:00 98.1 F 83 24 H 144/88 H 91 L 06/15/20 04:00 93 L Weight Weight 230 lb Most Recent Monitor Data Heart Rate from ECG 88 NIBP 182/102 Respiration from ECG 22 I&O: 06/14/20 06/15/20 06/16/20 06:59 06:59 06:59 Intake Total 3350 Balance 3350 Result Diagrams: 06/15/20 06:11 06/15/20 06:11 Additional Labs: Laboratory Tests 06/12/20 06/12/20 06/12/20 14:49 14:49 17:10 WBC 13.1 H Neutrophils % (Manual) 92 H D-Dimer Sodium 123 L 120 L Ferritin C-Reactive Protein SARS-CoV-2 Rap RNA(RT-PCR) 06/12/20 06/12/20 06/13/20 20:00 20:29 00:42 WBC Neutrophils % (Manual) D-Dimer Sodium 121 L 119 L* Ferritin C-Reactive Protein SARS-CoV-2 Rap RNA(RT-PCR) DETECTED A* 06/13/20 06/13/20 06/13/20 06:34 09:49 12:29 WBC Neutrophils % (Manual) D-Dimer Sodium 122 L 120 L 122 L Ferritin C-Reactive Protein SARS-CoV-2 Rap RNA(RT-PCR) 06/14/20 06/14/20 06/14/20 05:46 05:46 05:46 WBC Neutrophils % (Manual) D-Dimer 6.37 H Sodium Ferritin 2173.07 H C-Reactive Protein 12.80 H SARS-CoV-2 Rap RNA(RT-PCR) 06/15/20 06/15/20 06/15/20 06:11 06:11 06:11 WBC Neutrophils % (Manual) D-Dimer 5.51 H Sodium Ferritin 1813.70 H C-Reactive Protein 8.20 H SARS-CoV-2 Rap RNA(RT-PCR) [facility] - Medication Medications: Active Medications Generic Name Dose Route Start Last Admin Trade Name Freq PRN Reason Stop Dose Admin Ascorbic Acid 1,000 mg 06/13/20 09:00 06/15/20 10:00 Ascorbic Acid 500 Mg Chewable Tablet PO 1,000 mg DAILY DEBBIE Administration Aspirin 81 mg 06/13/20 09:00 06/15/20 10:01 Aspirin Chewable 81 Mg Tab PO 81 mg DAILY DEBBIE Administration Azithromycin 500 mg 06/13/20 18:00 06/14/20 17:17 Azithromycin 250 Mg Tab PO 500 mg Q24HR DEBBIE Administration Benzonatate 100 mg 06/14/20 15:00 06/15/20 10:01 Benzonatate 100 Mg Cap PO 100 mg TID DEBBIE Administration Dexamethasone 6 mg 06/13/20 08:00 06/15/20 09:58 Dexamethasone 4 Mg Tab PO 6 mg QAM-WM DEBBIE Administration Furosemide 40 mg 06/13/20 09:00 06/15/20 10:02 Furosemide 40 Mg Tab PO 40 mg DAILY DEBBIE Administration Guaifenesin/Codeine Phosphate 10 ml 06/13/20 17:50 06/15/20 01:16 Guaifenesin/Codeine Phosphate 200 Mg/20 Mg 10 Ml Ud Cup PO 10 ml Q4H PRN Administration Cough Ceftriaxone Sodium 1 gm/ 100 mls @ 200 mls/hr 06/12/20 17:00 06/14/20 17:16 Sodium Chloride IVPB 100 mls 1700 DEBBIE Administration Lorazepam 1 mg 06/14/20 13:44 06/14/20 14:27 Lorazepam 1 Mg Tab PO 1 mg Q4H PRN Administration Alcohol Withdrawal Melatonin 9 mg 06/13/20 18:03 06/15/20 01:16 Melatonin 3 Mg Tab PO 9 mg HSPRN PRN Administration Insomnia Metoprolol Succinate 200 mg 06/14/20 09:00 06/15/20 10:01 Metoprolol Succinate Xl 100 Mg Tab PO 200 mg DAILY DEBBIE Administration Multivitamins 1 tab 06/13/20 09:00 06/15/20 10:02 Multivit, Therapeutic 1 Tab PO 1 tab DAILY DEBBIE Administration Nifedipine 60 mg 06/15/20 09:00 06/15/20 10:01 Nifedipine Xl 60 Mg Tab PO 60 mg DAILY DEBBIE Administration Pantoprazole Sodium 40 mg 06/13/20 09:00 06/15/20 10:01 Pantoprazole 40 Mg Tab PO 40 mg DAILY DEBBIE Administration Polyethylene Glycol 17 gm 06/15/20 09:00 06/15/20 10:03 Polyethylene Glycol 3350 17 Gm Packet PO 17 gm DAILY DEBBIE Administration Senna/Docusate Sodium 1 tab 06/14/20 21:00 06/15/20 10:00 Senokot S 8.6-50 Mg Tab PO 1 tab BID DEBBIE Administration Sodium Chloride 10 ml 06/12/20 16:18 06/13/20 16:40 Flush - Normal Saline 10 Ml Syringe IVF 10 ml PRN PRN Administration Saline Flush Sodium Chloride 1 gm 06/12/20 21:00 06/15/20 10:00 Sodium Chloride 1 Gm Tab PO 1 gm TID DEBBIE Administration Zinc Sulfate 220 mg 06/13/20 09:00 06/15/20 10:02 Zinc Sulfate 220 Mg Cap PO 220 mg DAILY DEBBIE Administration - Exam General Appearance: NAD, awake alert Eye: PERRL, anicteric sclera ENT: normocephalic atraumatic, no oropharyngeal lesions Neck: supple, symmetric, no JVD, no thyromegaly, no lymphadenopathy Heart: RRR, no gallops, no rubs, normal peripheral pulses Heart - other findings: S1, S2 Respiratory: tachypneic Respiratory - other findings: diminished bilat, coarse sounds Gastrointestinal: soft, non-tender, non-distended, normal bowel sounds, no palpable masses Gastrointestinal - other findings: obese Extremities: no cyanosis, no clubbing, 1+ LE edema Skin: normal turgor, no lesions Neurological: cranial nerve grossly intact, no new deficit Musculoskeletal: normal tone, generalized weakness Psychiatric: normal affect, A&O x 3 Hosp A/P (1) Pneumonia due to COVID-19 virus Code(s): U07.1 - COVID-19; J12.89 - OTHER VIRAL PNEUMONIA Status: Acute Plan: Continue Rocephin/Zithromax/Dexamethasone/Lovenox/Vit C/Zinc, add Remdesivir today (2) Acute respiratory failure with hypoxia Code(s): J96.01 - ACUTE RESPIRATORY FAILURE WITH HYPOXIA Status: Acute Plan: Continue high-flow O2, likely will need home O2 (3) Hyponatremia Code(s): E87.1 - HYPO-OSMOLALITY AND HYPONATREMIA Status: Acute Plan: Secondary to ETOH abuse (4) HTN (hypertension) Code(s): I10 - ESSENTIAL (PRIMARY) HYPERTENSION Status: Chronic Qualifiers: Hypertension type: essential hypertension Qualified Code(s): I10 - Essential (primary) hypertension (5) Alcohol abuse Code(s): F10.10 - ALCOHOL ABUSE, UNCOMPLICATED Status: Chronic Plan: ASE protocol, Ativan PRN - Plan plan discussed w/ family, continue antibiotics, outreach and education social worker, 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
[2020-06-15] MEDS: cefTRIAXone\\ROCEPHIN 1 GM in Sodium Chloride 0.9% 100 ML IVPB SCH (16:04)
[2020-06-15] MEDS: Azithromycin 250 MG TAB PO SCH (17:32)
[2020-06-15] MEDS ORDERED: REMDESIVIR (EUA) 200 MG in Sodium Chloride 0.9% 250 ML 210 ML IV SCH ×2 (18:15→22:00)
[2020-06-15] MEDS: Lorazepam 1 MG TAB PO PRN (22:27)
[2020-06-15] MEDS: Enoxaparin Sodium 40 MG/0.4 ML SYRINGE SC SCH (22:27)
[2020-06-16] MEDS ORDERED: Albuterol 200 PUFF (6.7GM INHALER) INH PRN (03:40)
[2020-06-16 06:59] LABS: Hemoglobin 13.5 g/dL (14.0-18.0); Mean Corpuscular HGB CONC 34.5 g/dL (32.0-36.0); Mean Corpuscular Hemoglobin 33.2 pg (27.0-31.0); Mean Corpuscular Volume 96.1 fL (78.0-98.0); Mean Platelet Volume 8.2 fL (7.4-10.4); Platelet Count 254 thou/uL (130-400); RBC Distribution Width 11.3 % (11.5-14.5); Red Blood Cell (RBC) Count 4.08 mill/uL (4.70-6.10); White Blood Cell (WBC) Count 11.2 thou/uL (4.8-10.8)
--- NOTE | 2020-06-16 08:00 | RAD ---
PORTABLE CHEST: HISTORY: Shortness of breath. CCU followup with pneumonia. COMPARISON: 06/12/2020. FINDINGS: Bilateral confluent alveolar infiltrates are again noted. IMPRESSION: No significant interval change. POS: AGW
[2020-06-16 09:32] LABS: ALT (SGPT) 58 U/L (8-55); AST (SGOT) 93 U/L (5-34); Albumin 2.9 g/dL (3.5-5.0); Alkaline Phosphatase 62 U/L (40-110); Anion Gap 19 mmol/L (10-20); BUN (Urea Nitrogen) 19 mg/dL (8.4-25.7); Bilirubin, Total 0.8 mg/dL (0.2-1.2); CRP (Inflammatory) 4.49 mg/dL (= or < 0.5); Calc. Creatinine Clearance 192 mL/min (70-130); Calcium 8.6 mg/dL (7.8-10.44); Carbon Dioxide 22 mmol/L (22-29); Chloride 94 mmol/L (98-107); Globulin 3.4 g/dL (2.4-3.5); Glucose 117 mg/dL (70-105); Potassium 4.8 mmol/L (3.5-5.1); Protein, Total 6.3 g/dL (6.0-8.3); Sodium 130 mmol/L (136-145)
[2020-06-16 09:34] LABS: Band 2 % (5-11); Lymphocytes 9 % (21-51); MDiff Complete? YES; Monocytes 4 % (0-10); Neutrophil 82 % (42-75); Platelet Morphology Comment Appears Adequate; Polychromasia SLIGHT = 2-3 cells (100X) (0-2/hpf); Reactive Lymphocytes 3 % (0-10)
[2020-06-16] MEDS: Aspirin Chewable 81 MG TAB PO SCH (10:21)
[2020-06-16] MEDS: Dexamethasone 4 MG TAB PO SCH (10:21)
[2020-06-16] MEDS: NIFEdipine XL 60 MG TAB PO SCH (10:21)
[2020-06-16] MEDS: Benzonatate 100 MG CAP PO SCH ×3 (10:22→21:11)
[2020-06-16] MEDS: Ascorbic Acid 500 mg Chewable Tablet PO SCH (10:22)
[2020-06-16] MEDS: Enoxaparin Sodium 40 MG/0.4 ML SYRINGE SC SCH ×2 (10:24→21:11)
[2020-06-16] MEDS: Furosemide 40 MG TAB PO SCH ×2 (10:25→17:05)
[2020-06-16] MEDS: Sodium Chloride 1 GM TAB PO SCH ×3 (10:25→21:11)
[2020-06-16] MEDS: Zinc Sulfate 220 MG CAP PO SCH (10:25)
[2020-06-16] MEDS: Multivit, Therapeutic 1 TAB PO SCH (10:25)
[2020-06-16] MEDS: Polyethylene Glycol 3350 17 GM Packet PO SCH (10:26)
[2020-06-16] MEDS: Senokot S 8.6-50 MG TAB PO SCH ×2 (10:26→21:11)
[2020-06-16] MEDS: Lorazepam 1 MG TAB PO PRN (13:10)
--- NOTE | 2020-06-16 16:02 | PDOC.NEPPN ---
- Subjective Encounter Date: 06/16/20 Subjective: 54 y/o male with hyponatremia in the context of covid pneumonia. Got confused and agitated last night pulling off oxygen. Now back on bed and restrained. - Objective Vital Signs & Weight: Vital Signs (12 hours) Temp Pulse Resp BP BP BP Pulse Ox 06/16/20 12:40 98.1 F 66 20 138/82 93 L 06/16/20 10:21 63 06/16/20 08:59 98.1 F 63 28 H 134/81 96 06/16/20 08:00 98.1 F 63 28 H 134/81 134/81 96 Weight Weight 230 lb Most Recent Monitor Data Heart Rate from ECG 88 NIBP 182/102 Respiration from ECG 22 I&O: 06/15/20 06/16/20 06/17/20 06:59 06:59 06:59 Intake Total 3350 Balance 3350 Result Diagrams: 06/16/20 06:14 06/16/20 08:15 Nephrology ROS - Medication Medications: Active Medications Generic Name Dose Route Start Last Admin Trade Name Sukhjinderq PRN Reason Stop Dose Admin Ascorbic Acid 1,000 mg 06/13/20 09:00 06/16/20 10:22 Ascorbic Acid 500 Mg Chewable Tablet PO 1,000 mg DAILY DEBBIE Administration Aspirin 81 mg 06/13/20 09:00 06/16/20 10:21 Aspirin Chewable 81 Mg Tab PO 81 mg DAILY DEBBIE Administration Azithromycin 500 mg 06/13/20 18:00 06/15/20 17:32 Azithromycin 250 Mg Tab PO 500 mg Q24HR DEBBIE Administration Benzonatate 100 mg 06/14/20 15:00 06/16/20 10:22 Benzonatate 100 Mg Cap PO 100 mg TID DEBBIE Administration Dexamethasone 6 mg 06/13/20 08:00 06/16/20 10:21 Dexamethasone 4 Mg Tab PO 6 mg QAM-WM DEBBIE Administration Enoxaparin Sodium 40 mg 06/15/20 21:00 06/16/20 10:24 Enoxaparin Sodium 40 Mg/0.4 Ml Syringe SC 40 mg 0900,2100 DEBBIE Administration Furosemide 40 mg 06/13/20 09:00 06/16/20 10:25 Furosemide 40 Mg Tab PO 40 mg DAILY DEBBIE Administration Guaifenesin/Codeine Phosphate 10 ml 06/13/20 17:50 12/28/20 01:16 Guaifenesin/Codeine Phosphate 200 Mg/20 Mg 10 Ml Ud Cup PO 10 ml Q4H PRN Administration Cough Ceftriaxone Sodium 1 gm/ 100 mls @ 200 mls/hr 06/12/20 17:00 06/15/20 16:04 Sodium Chloride IVPB 100 mls 1700 DEBBIE Administration Lorazepam 1 mg 06/14/20 13:44 06/16/20 13:10 Lorazepam 1 Mg Tab PO 1 mg Q4H PRN Administration Alcohol Withdrawal Melatonin 9 mg 06/13/20 18:03 06/15/20 01:16 Melatonin 3 Mg Tab PO 9 mg HSPRN PRN Administration Insomnia Metoprolol Succinate 200 mg 06/14/20 09:00 06/16/20 10:24 Metoprolol Succinate Xl 100 Mg Tab PO 200 mg DAILY DEBBIE Administration Multivitamins 1 tab 06/13/20 09:00 06/16/20 10:25 Multivit, Therapeutic 1 Tab PO 1 tab DAILY DEBBIE Administration Nifedipine 60 mg 06/15/20 09:00 06/16/20 10:21 Nifedipine Xl 60 Mg Tab PO 60 mg DAILY DEBBIE Administration Pantoprazole Sodium 40 mg 06/13/20 09:00 06/16/20 10:25 Pantoprazole 40 Mg Tab PO 40 mg DAILY DEBBIE Administration Polyethylene Glycol 17 gm 06/15/20 09:00 06/16/20 10:26 Polyethylene Glycol 3350 17 Gm Packet PO 17 gm DAILY DEBBIE Administration Senna/Docusate Sodium 1 tab 06/14/20 21:00 06/16/20 10:26 Senokot S 8.6-50 Mg Tab PO 1 tab BID DEBBIE Administration Sodium Chloride 10 ml 06/12/20 16:18 06/13/20 16:40 Flush - Normal Saline 10 Ml Syringe IVF 10 ml PRN PRN Administration Saline Flush Sodium Chloride 1 gm 06/12/20 21:00 06/16/20 10:25 Sodium Chloride 1 Gm Tab PO 1 gm TID DEBBIE Administration Zinc Sulfate 220 mg 06/13/20 09:00 06/16/20 10:25 Zinc Sulfate 220 Mg Cap PO 220 mg DAILY DEBBIE Administration - Exam General - other findings: sleeping but arousable Eye: anicteric sclera ENT: normocephalic atraumatic, moist mucosa Neck: symmetric Respiratory: no ronchi, normal chest expansion, rales, tachypneic Cardiovascular: RRR Gastrointestinal: soft, non-distended, normal bowel sounds Extremities - other findings: trace to mild edema of the extremities noted Neurological: CN's grossly intact, no focal deficits Nephrology Results - Labs Result Diagrams: 06/16/20 06:14 06/16/20 08:15 Lab results: WBC 11.2 thou/uL (4.8-10.8) H 06/16/20 06:14 Hgb 13.5 g/dL (14.0-18.0) L 06/16/20 06:14 Hct 39.2 % (42.0-52.0) L 06/16/20 06:14 MCV 96.1 fL (78.0-98.0) 06/16/20 06:14 Plt Count 254 thou/uL (130-400) 06/16/20 06:14 Neutrophils % 90.2 % (42.0-75.0) H 06/14/20 05:46 Band Neuts % (Manual) 2 % (5-11) L 06/16/20 06:14 ESR Westergren 38 mm/hr (Less than 20) H 06/12/20 17:10 Sodium 130 mmol/L (136-145) L 06/16/20 08:15 Potassium 4.8 mmol/L (3.5-5.1) 06/16/20 08:15 Chloride 94 mmol/L (98-107) L 06/16/20 08:15 Carbon Dioxide 22 mmol/L (22-29) 06/16/20 08:15 BUN 19 mg/dL (8.4-25.7) 06/16/20 08:15 Creatinine 0.64 mg/dL (0.7-1.3) L 06/16/20 08:15 Glucose 117 mg/dL (70-105) H 06/16/20 08:15 Calcium 8.6 mg/dL (7.8-10.44) 06/16/20 08:15 Total Bilirubin 0.8 mg/dL (0.2-1.2) 06/16/20 08:15 AST 93 U/L (5-34) H 06/16/20 08:15 ALT 58 U/L (8-55) H 06/16/20 08:15 Alkaline Phosphatase 62 U/L (40-110) 06/16/20 08:15 Troponin I 0.012 ng/mL (< 0.028) 06/12/20 14:49 C-Reactive Protein 4.49 mg/dL (= or < 0.5) H 06/16/20 08:15 B-Natriuretic Peptide 112.5 pg/mL (0-100) H 06/12/20 14:49 Serum Total Protein 6.3 g/dL (6.0-8.3) 06/16/20 08:15 Albumin 2.9 g/dL (3.5-5.0) L 06/16/20 08:15 Sodium 130 mmol/L (136-145) L 06/16/20 08:15 Potassium 4.8 mmol/L (3.5-5.1) 06/16/20 08:15 Chloride 94 mmol/L (98-107) L 06/16/20 08:15 Carbon Dioxide 22 mmol/L (22-29) 06/16/20 08:15 Anion Gap 19 mmol/L (10-20) 06/16/20 08:15 BUN 19 mg/dL (8.4-25.7) 06/16/20 08:15 Creatinine 0.64 mg/dL (0.7-1.3) L 06/16/20 08:15 Glucose 117 mg/dL (70-105) H 06/16/20 08:15 Calcium 8.6 mg/dL (7.8-10.44) 06/16/20 08:15 Albumin 2.9 g/dL (3.5-5.0) L 06/16/20 08:15 Nephrology AP PN - Plan ASSESSMENT Hyponatremia:sodium is up today at 130 with compliance with fluid restriction. 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 Bilateral leg edema PLAN Continue nifedipine Increase lasix to 40 bid Continue salt tablet and fluid restriction. Other treatments as per primary attending. Follow electrolytes.
[2020-06-16] MEDS: cefTRIAXone\\ROCEPHIN 1 GM in Sodium Chloride 0.9% 100 ML IVPB SCH (17:05)
--- NOTE | 2020-06-16 17:42 | PDOC.HOSPP ---
- Subjective Encounter Date: 06/16/20 Encounter Time: 17:40 Subjective: f/u for COVID PNA/hypoxic resp failure on high-flow NC @ 50L/min NC. Agitated and confused earlier receiving Ativan for ETOH withdrawal symptoms. - Objective Vital Signs & Weight: Vital Signs (12 hours) Temp Pulse Resp BP BP BP Pulse Ox 06/16/20 16:58 98.1 F 62 20 144/93 H 96 06/16/20 12:40 98.1 F 66 20 138/82 93 L 06/16/20 12:00 138/82 06/16/20 10:21 63 06/16/20 08:59 98.1 F 63 28 H 134/81 96 06/16/20 08:00 98.1 F 63 28 H 134/81 134/81 96 Weight Weight 230 lb Most Recent Monitor Data Heart Rate from ECG 88 NIBP 182/102 Respiration from ECG 22 I&O: 06/15/20 06/16/20 06/17/20 06:59 06:59 06:59 Intake Total 3350 Balance 3350 Result Diagrams: 06/16/20 06:14 06/16/20 08:15 Additional Labs: Laboratory Tests 06/12/20 06/12/20 06/12/20 14:49 14:49 17:10 WBC 13.1 H Neutrophils % (Manual) 92 H D-Dimer Sodium 123 L 120 L Ferritin C-Reactive Protein SARS-CoV-2 Rap RNA(RT-PCR) 06/12/20 06/12/20 06/13/20 20:00 20:29 00:42 WBC Neutrophils % (Manual) D-Dimer Sodium 121 L 119 L* Ferritin C-Reactive Protein SARS-CoV-2 Rap RNA(RT-PCR) DETECTED A* 06/13/20 06/13/20 06/13/20 06:34 09:49 12:29 WBC Neutrophils % (Manual) D-Dimer Sodium 122 L 120 L 122 L Ferritin C-Reactive Protein SARS-CoV-2 Rap RNA(RT-PCR) 06/14/20 06/14/20 06/14/20 05:46 05:46 05:46 WBC Neutrophils % (Manual) D-Dimer 6.37 H Sodium Ferritin 2173.07 H C-Reactive Protein 12.80 H SARS-CoV-2 Rap RNA(RT-PCR) 06/15/20 06/15/2006/15/20 06:11 06:11 06:11 WBC Neutrophils % (Manual) D-Dimer 5.51 H Sodium Ferritin 1813.70 H C-Reactive Protein 8.20 H SARS-CoV-2 Rap RNA(RT-PCR) 06/16/20 06/16/20 06/16/20 06:14 06:14 08:15 WBC Neutrophils % (Manual) D-Dimer Greater than 20.00 H Sodium Ferritin 1258.79 H C-Reactive Protein 4.49 H SARS-CoV-2 Rap RNA(RT-PCR) Radiology Reviewed by me: Yes (PCXR - bilat infiltrates) Hospitalist ROS - Medication Medications: Active Medications Generic Name Dose Route Start Last Admin Trade Name Freq PRN Reason Stop Dose Admin Ascorbic Acid 1,000 mg 06/13/20 09:00 06/16/20 10:22 Ascorbic Acid 500 Mg Chewable Tablet PO 1,000 mg DAILY DEBBIE Administration Aspirin 81 mg 06/13/20 09:00 06/16/20 10:21 Aspirin Chewable 81 Mg Tab PO 81 mg DAILY DEBBIE Administration Azithromycin 500 mg 06/13/20 18:00 06/15/20 17:32 Azithromycin 250 Mg Tab PO 500 mg Q24HR DEBBIE Administration Benzonatate 100 mg 06/14/20 15:00 06/16/20 17:06 Benzonatate 100 Mg Cap PO 100 mg TID DEBBIE Administration Dexamethasone 6 mg 06/13/20 08:00 06/16/20 10:21 Dexamethasone 4 Mg Tab PO 6 mg QAM-WM DEBBIE Administration Enoxaparin Sodium 40 mg 06/15/20 21:00 06/16/20 10:24 Enoxaparin Sodium 40 Mg/0.4 Ml Syringe SC 40 mg 0900,2100 DEBBIE Administration Furosemide 40 mg 06/16/20 17:00 06/16/20 17:05 Furosemide 40 Mg Tab PO 40 mg 0900,1700 DEBBIE Administration Guaifenesin/Codeine Phosphate 10 ml 06/13/20 17:50 06/15/20 01:16 Guaifenesin/Codeine Phosphate 200 Mg/20 Mg 10 Ml Ud Cup PO 10 ml Q4H PRN Administration Cough Ceftriaxone Sodium 1 gm/ 100 mls @ 200 mls/hr 06/12/20 17:00 06/16/20 17:05 Sodium Chloride IVPB 100 mls 1700 DEBBIE Administration Lorazepam 1 mg 06/14/20 13:44 06/16/20 13:10 Lorazepam 1 Mg Tab PO 1 mg Q4H PRN Administration Alcohol Withdrawal Melatonin 9 mg 06/13/20 18:03 06/15/20 01:16 Melatonin 3 Mg Tab PO 9 mg HSPRN PRN Administration Insomnia Metoprolol Succinate 200 mg 06/14/20 09:00 06/16/20 10:24 Metoprolol Succinate Xl 100 Mg Tab PO 200 mg DAILY DEBBIE Administration Multivitamins 1 tab 06/13/20 09:00 06/16/20 10:25 Multivit, Therapeutic 1 Tab PO 1 tab DAILY DEBBIE Administration Nifedipine 60 mg 06/15/20 09:00 06/16/20 10:21 Nifedipine Xl 60 Mg Tab PO 60 mg DAILY DEBBIE Administration Pantoprazole Sodium 40 mg 06/13/20 09:00 06/16/20 10:25 Pantoprazole 40 Mg Tab PO 40 mg DAILY DEBBIE Administration Polyethylene Glycol 17 gm 06/15/20 09:00 06/16/20 10:26 Polyethylene Glycol 3350 17 Gm Packet PO 17 gm DAILY DEBBIE Administration Senna/Docusate Sodium 1 tab 06/14/20 21:00 06/16/20 10:26 Senokot S 8.6-50 Mg Tab PO 1 tab BID DEBBIE Administration Sodium Chloride 10 ml 06/12/20 16:18 06/13/20 16:40 Flush - Normal Saline 10 Ml Syringe IVF 10 ml PRN PRN Administration Saline Flush Sodium Chloride 1 gm 06/12/20 21:00 06/16/20 17:05 Sodium Chloride 1 Gm Tab PO 1 gm TID DEBBIE Administration Zinc Sulfate 220 mg 06/13/20 09:00 06/16/20 10:25 Zinc Sulfate 220 Mg Cap PO 220 mg DAILY DEBBIE Administration - Exam General Appearance: awake alert General - other findings: responds to questions Eye: PERRL, anicteric sclera ENT: normocephalic atraumatic, no oropharyngeal lesions Neck: supple, symmetric, no JVD, no thyromegaly, no lymphadenopathy Heart: RRR, no gallops, no rubs, normal peripheral pulses Heart - other findings: S1, S2 Respiratory: tachypneic Respiratory - other findings: scattered coarse sounds, diminished in bases Gastrointestinal: soft, non-tender, non-distended, normal bowel sounds, no palpable masses Extremities: no cyanosis, no clubbing, no edema Skin: normal turgor Neurological: no new deficit Musculoskeletal: generalized weakness Psychiatric: oriented to person, oriented to place Hosp A/P (1) Pneumonia due to COVID-19 virus Code(s): U07.1 - COVID-19; J12.89 - OTHER VIRAL PNEUMONIA Status: Acute Plan: Continue Remdesivir/Zithromax/Rocephin/Lovenox/Vit C/Zinc/High-flow NC (2) Acute respiratory failure with hypoxia Code(s): J96.01 - ACUTE RESPIRATORY FAILURE WITH HYPOXIA Status: Acute Plan: Continue NIMV and titrate to clinical response (3) Hyponatremia Code(s): E87.1 - HYPO-OSMOLALITY AND HYPONATREMIA Status: Acute Plan: Improved, continue serial Na+ monitoring (4) HTN (hypertension) Code(s): I10 - ESSENTIAL (PRIMARY) HYPERTENSION Status: Chronic Qualifiers: Hypertension type: essential hypertension Qualified Code(s): I10 - Essential (primary) hypertension (5) Alcohol abuse Code(s): F10.10 - ALCOHOL ABUSE, UNCOMPLICATED Status: Chronic - Plan continue antibiotics, psychosocial rehabilitation counselor, respiratory therapy, incentive spirometry, DVT proph w/lovenox, DVT proph w/SCDs Stable currently Continue Zithromax/Rocephin/Dexamethasone O2 supplementation, may need home O2 Ativan 1mg po q4h prn withdrawal sx Continue Remdesivir Continue Lovenox Add Senokot-S, Miralax AM lab: BMP, CBC, Ferritin, D-dimer, CRP
[2020-06-16] MEDS: Azithromycin 250 MG TAB PO SCH (18:25)
[2020-06-16] MEDS: REMDESIVIR (EUA) 100 MG in Sodium Chloride 0.9% 250 ML 230 ML IV SCH (21:11)
[2020-06-17 08:11] LABS: ALT (SGPT) 77 U/L (8-55); AST (SGOT) 94 U/L (5-34); Albumin 2.9 g/dL (3.5-5.0); Alkaline Phosphatase 67 U/L (40-110); Anion Gap 13 mmol/L (10-20); BUN (Urea Nitrogen) 18 mg/dL (8.4-25.7); Bilirubin, Total 0.8 mg/dL (0.2-1.2); Calc. Creatinine Clearance 195 mL/min (70-130); Calcium 8.3 mg/dL (7.8-10.44); Carbon Dioxide 28 mmol/L (22-29); Chloride 96 mmol/L (98-107); Globulin 3.3 g/dL (2.4-3.5); Glucose 102 mg/dL (70-105); Protein, Total 6.2 g/dL (6.0-8.3); Sodium 133 mmol/L (136-145)
[2020-06-17] MEDS: Multivit, Therapeutic 1 TAB PO SCH (08:51)
[2020-06-17] MEDS: Aspirin Chewable 81 MG TAB PO SCH (08:51)
[2020-06-17] MEDS: Dexamethasone 4 MG TAB PO SCH (08:51)
[2020-06-17] MEDS: NIFEdipine XL 60 MG TAB PO SCH (08:51)
[2020-06-17] MEDS: Sodium Chloride 1 GM TAB PO SCH ×3 (08:51→21:21)
[2020-06-17] MEDS: Ascorbic Acid 500 mg Chewable Tablet PO SCH (08:51)
[2020-06-17] MEDS: Polyethylene Glycol 3350 17 GM Packet PO SCH (08:52)
[2020-06-17] MEDS: Enoxaparin Sodium 40 MG/0.4 ML SYRINGE SC SCH ×2 (08:52→21:20)
[2020-06-17] MEDS: Benzonatate 100 MG CAP PO SCH ×3 (08:52→21:20)
[2020-06-17] MEDS: Furosemide 40 MG TAB PO SCH ×2 (08:52→16:32)
[2020-06-17] MEDS: Senokot S 8.6-50 MG TAB PO SCH ×2 (08:52→21:21)
[2020-06-17] MEDS: Zinc Sulfate 220 MG CAP PO SCH (08:52)
--- NOTE | 2020-06-17 09:17 | PDOC.NEPPN ---
- Subjective Encounter Date: 06/17/20 Subjective: Seen in follow up for hyponatremia in the context of acute respiratory failure due to covid pneumonia. Reports feeling better. More await and conversation. Off restrains. - Objective Vital Signs & Weight: Vital Signs (12 hours) Temp Pulse Resp BP BP BP Pulse Ox 06/17/20 08:51 59 L 06/17/20 08:00 97.9 F 59 L 16 120/75 96 06/17/20 04:20 18 97 06/17/20 00:05 62 18 114/75 114/75 95 Weight Weight 230 lb Most Recent Monitor Data Heart Rate from ECG 88 NIBP 182/102 Respiration from ECG 22 Result Diagrams: 06/16/20 06:14 06/17/20 07:26 Nephrology ROS - Medication Medications: Active Medications Generic Name Dose Route Start Last Admin Trade Name Freq PRN Reason Stop Dose Admin Ascorbic Acid 1,000 mg 06/13/20 09:00 06/17/20 08:51 Ascorbic Acid 500 Mg Chewable Tablet PO 1,000 mg DAILY DEBBIE Administration Aspirin 81 mg 06/13/20 09:00 06/17/20 08:51 Aspirin Chewable 81 Mg Tab PO 81 mg DAILY DEBBIE Administration Azithromycin 500 mg 06/13/20 18:00 06/16/20 18:25 Azithromycin 250 Mg Tab PO 500 mg Q24HR DEBBIE Administration Benzonatate 100 mg 06/14/20 15:00 06/17/20 08:52 Benzonatate 100 Mg Cap PO 100 mg TID DEBBIE Administration Dexamethasone 6 mg 06/13/20 08:00 06/17/20 08:51 Dexamethasone 4 Mg Tab PO 6 mg QAM-WM DEBBIE Administration Enoxaparin Sodium 40 mg 06/15/20 21:00 06/17/20 08:52 Enoxaparin Sodium 40 Mg/0.4 Ml Syringe SC 40 mg 0900,2100 DEBBIE Administration Furosemide 40 mg 06/16/20 17:00 06/17/20 08:52 Furosemide 40 Mg Tab PO 40 mg 0900,1700 DEBBIE Administration Guaifenesin/Codeine Phosphate 10 ml 06/13/20 17:50 06/15/20 01:16 Guaifenesin/Codeine Phosphate 200 Mg/20 Mg 10 Ml Ud Cup PO 10 ml Q4H PRN Administration Cough Ceftriaxone Sodium 1 gm/ 100 mls @ 200 mls/hr 06/12/20 17:00 06/16/20 17:05 Sodium Chloride IVPB 100 mls 1700 DEBBIE Administration Remdesivir 100 mg/ Sodium 250 mls @ 250 mls/hr 06/16/20 22:00 06/16/20 21:11 Chloride IV 06/19/20 22:59 250 mls Q24HR DEBBIE Administration Lorazepam 1 mg 06/14/20 13:44 06/16/20 13:10 Lorazepam 1 Mg Tab PO 1 mg Q4H PRN Administration Alcohol Withdrawal Melatonin 9 mg 06/13/20 18:03 06/15/20 01:16 Melatonin 3 Mg Tab PO 9 mg HSPRN PRN Administration Insomnia Metoprolol Succinate 200 mg 06/14/20 09:00 06/17/20 08:51 Metoprolol Succinate Xl 100 Mg Tab PO 200 mg DAILY DEBBIE Administration Multivitamins 1 tab 06/13/20 09:00 06/17/20 08:51 Multivit, Therapeutic 1 Tab PO 1 tab DAILY DEBBIE Administration Nifedipine 60 mg 06/15/20 09:00 06/17/20 08:51 Nifedipine Xl 60 Mg Tab PO 60 mg DAILY DEBBIE Administration Pantoprazole Sodium 40 mg 06/13/20 09:00 06/17/20 08:52 Pantoprazole 40 Mg Tab PO 40 mg DAILY DEBBIE Administration Polyethylene Glycol 17 gm 06/15/20 09:00 06/17/20 08:52 Polyethylene Glycol 3350 17 Gm Packet PO 17 gm DAILY DEBBIE Administration Senna/Docusate Sodium 1 tab 06/14/20 21:00 06/17/20 08:52 Senokot S 8.6-50 Mg Tab PO 1 tab BID DEBBIE Administration Sodium Chloride 10 ml 06/12/20 16:18 06/13/20 16:40 Flush - Normal Saline 10 Ml Syringe IVF 10 ml PRN PRN Administration Saline Flush Sodium Chloride 1 gm 06/12/20 21:00 06/17/20 08:51 Sodium Chloride 1 Gm Tab PO 1 gm TID DEBBIE Administration Zinc Sulfate 220 mg 06/13/20 09:00 06/17/20 08:52 Zinc Sulfate 220 Mg Cap PO 220 mg DAILY DEBBIE Administration - Exam General Appearance: awake alert Eye: anicteric sclera ENT: normocephalic atraumatic, moist mucosa Neck: symmetric, no JVD Respiratory: no tachypnea Respiratory - other findings: increased work of breathin. Cardiovascular: RRR Gastrointestinal: soft, non-tender, non-distended, normal bowel sounds Gastrointestinal - other findings: obese Extremities - other findings: mile bilateral leg and ankle fullness. Neurological: CN's grossly intact, no focal deficits PSYCH: A&O x 3 Nephrology Results - Labs Result Diagrams: 06/16/20 06:14 06/17/20 07:26 Lab results: WBC 11.2 thou/uL (4.8-10.8) H 06/16/20 06:14 Hgb 13.5 g/dL (14.0-18.0) L 06/16/20 06:14 Hct 39.2 % (42.0-52.0) L 06/16/20 06:14 MCV 96.1 fL (78.0-98.0) 06/16/20 06:14 Plt Count 254 thou/uL (130-400) 06/16/20 06:14 Neutrophils % 90.2 % (42.0-75.0) H 06/14/20 05:46 Band Neuts % (Manual) 2 % (5-11) L 06/16/20 06:14 ESR Westergren 38 mm/hr (Less than 20) H 06/12/20 17:10 Sodium 133 mmol/L (136-145) L 06/17/20 07:26 Potassium 4.0 mmol/L (3.5-5.1) 06/17/20 07:26 Chloride 96 mmol/L (98-107) L 06/17/20 07:26 Carbon Dioxide 28 mmol/L (22-29) 06/17/20 07:26 BUN 18 mg/dL (8.4-25.7) 06/17/20 07:26 Creatinine 0.63 mg/dL (0.7-1.3) L 06/17/20 07:26 Glucose 102 mg/dL (70-105) 06/17/20 07:26 Calcium 8.3 mg/dL (7.8-10.44) 06/17/20 07:26 Total Bilirubin 0.8 mg/dL (0.2-1.2) 06/17/20 07:26 AST 94 U/L (5-34) H 06/17/20 07:26 ALT 77 U/L (8-55) H 06/17/20 07:26 Alkaline Phosphatase 67 U/L (40-110) 06/17/20 07:26 Troponin I 0.012 ng/mL (< 0.028) 06/12/20 14:49 C-Reactive Protein 4.49 mg/dL (= or < 0.5) H 06/16/20 08:15 B-Natriuretic Peptide 112.5 pg/mL (0-100) H 06/12/20 14:49 Serum Total Protein 6.2 g/dL (6.0-8.3) 06/17/20 07:26 Albumin 2.9 g/dL (3.5-5.0) L 06/17/20 07:26 Sodium 133 mmol/L (136-145) L 06/17/20 07:26 Potassium 4.0 mmol/L (3.5-5.1) 06/17/20 07:26 Chloride 96 mmol/L (98-107) L 06/17/20 07:26 Carbon Dioxide 28 mmol/L (22-29) 06/17/20 07:26 Anion Gap 13 mmol/L (10-20) 06/17/20 07:26 BUN 18 mg/dL (8.4-25.7) 06/17/20 07:26 Creatinine 0.63 mg/dL (0.7-1.3) L 06/17/20 07:26 Glucose 102 mg/dL (70-105) 06/17/20 07:26 Calcium 8.3 mg/dL (7.8-10.44) 06/17/20 07:26 Albumin 2.9 g/dL (3.5-5.0) L 06/17/20 07:26 Nephrology AP PN - Plan ASSESSMENT Hyponatremia:sodium is up today at 133 with compliance with fluid restriction. 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 Bilateral leg edemaImproving with lasix PLAN Continue nifedipine Continue lasix to 40 bid Continue salt tablet and fluid restriction. Other treatments as per primary attending. Follow electrolytes.
--- NOTE | 2020-06-17 16:25 | PDOC.HOSPP ---
- Subjective Encounter Date: 06/17/20 Encounter Time: 16:25 Subjective: f/u for COVID PNA/hypoxic resp failure on high-flow @ 40L/min NC. Overall feeling better. - Objective Vital Signs & Weight: Vital Signs (12 hours) Temp Pulse Resp BP BP Pulse Ox 06/17/20 15:55 98.1 F 61 17 101/61 98 06/17/20 12:00 98.2 F 52 L 17 115/77 99 06/17/20 08:51 59 L 06/17/20 08:00 97.9 F 59 L 16 120/75 96 Weight Weight 230 lb Most Recent Monitor Data Heart Rate from ECG 88 NIBP 182/102 Respiration from ECG 22 Result Diagrams: 06/16/20 06:14 06/17/20 07:26 Additional Labs: Laboratory Tests 06/12/20 06/12/20 06/12/20 14:49 14:49 17:10 WBC 13.1 H Neutrophils % (Manual) 92 H D-Dimer Sodium 123 L 120 L Ferritin C-Reactive Protein SARS-CoV-2 Rap RNA(RT-PCR) 06/12/20 06/12/20 06/13/20 20:00 20:29 00:42 WBC Neutrophils % (Manual) D-Dimer Sodium 121 L 119 L* Ferritin C-Reactive Protein SARS-CoV-2 Rap RNA(RT-PCR) DETECTED A* 06/13/20 06/13/20 06/13/20 06:34 09:49 12:29 WBC Neutrophils % (Manual) D-Dimer Sodium 122 L 120 L 122 L Ferritin C-Reactive Protein SARS-CoV-2 Rap RNA(RT-PCR) 06/14/20 06/14/20 06/14/20 05:46 05:46 05:46 WBC Neutrophils % (Manual) D-Dimer 6.37 H Sodium Ferritin 2173.07 H C-Reactive Protein 12.80 H SARS-CoV-2 Rap RNA(RT-PCR) 06/15/20 06/15/20 06/15/20 06:11 06:11 06:11 WBC Neutrophils % (Manual) D-Dimer 5.51 H Sodium Ferritin 1813.70 H C-Reactive Protein 8.20 H SARS-CoV-2 Rap RNA(RT-PCR) 06/16/20 06/16/20 06/16/20 06:14 06:14 08:15 WBC Neutrophils % (Manual) D-Dimer Greater than 20.00 H Sodium Ferritin 1258.79 H C-Reactive Protein 4.49 H SARS-CoV-2 Rap RNA(RT-PCR) Hospitalist ROS - Medication Medications: Active Medications Generic Name Dose Route Start Last Admin Trade Name Freq PRN Reason Stop Dose Admin Ascorbic Acid 1,000 mg 06/13/20 09:00 06/17/20 08:51 Ascorbic Acid 500 Mg Chewable Tablet PO 1,000 mg DAILY DEBBIE Administration Aspirin 81 mg 06/13/20 09:00 06/17/20 08:51 Aspirin Chewable 81 Mg Tab PO 81 mg DAILY DEBBIE Administration Azithromycin 500 mg 06/13/20 18:00 06/16/20 18:25 Azithromycin 250 Mg Tab PO 500 mg Q24HR DEBBIE Administration Benzonatate 100 mg 06/14/20 15:00 06/17/20 15:14 Benzonatate 100 Mg Cap PO 100 mg TID DEBBIE Administration Dexamethasone 6 mg 06/13/20 08:00 06/17/20 08:51 Dexamethasone 4 Mg Tab PO 6 mg QAM-WM DEBBIE Administration Enoxaparin Sodium 40 mg 06/15/20 21:00 06/17/20 08:52 Enoxaparin Sodium 40 Mg/0.4 Ml Syringe SC 40 mg 0900,2100 DEBBIE Administration Furosemide 40 mg 06/16/20 17:00 06/17/20 08:52 Furosemide 40 Mg Tab PO 40 mg 0900,1700 DEBBIE Administration Guaifenesin/Codeine Phosphate 10 ml 06/13/20 17:50 06/15/20 01:16 Guaifenesin/Codeine Phosphate 200 Mg/20 Mg 10 Ml Ud Cup PO 10 ml Q4H PRN Administration Cough Ceftriaxone Sodium 1 gm/ 100 mls @ 200 mls/hr 06/12/20 17:00 06/16/20 17:05 Sodium Chloride IVPB 100 mls 1700 DEBBIE Administration Remdesivir 100 mg/ Sodium 250 mls @ 250 mls/hr 06/16/20 22:00 06/16/20 21:11 Chloride IV 06/19/20 22:59 250 mls Q24HR DEBBIE Administration Lorazepam 1 mg 06/14/20 13:44 06/16/20 13:10 Lorazepam 1 Mg Tab PO 1 mg Q4H PRN Administration Alcohol Withdrawal Melatonin 9 mg 06/13/20 18:03 06/15/20 01:16 Melatonin 3 Mg Tab PO 9 mg HSPRN PRN Administration Insomnia Metoprolol Succinate 200 mg 06/14/20 09:00 06/17/20 08:51 Metoprolol Succinate Xl 100 Mg Tab PO 200 mg DAILY DEBBIE Administration Multivitamins 1 tab 06/13/20 09:00 06/17/20 08:51 Multivit, Therapeutic 1 Tab PO 1 tab DAILY DEBBIE Administration Nifedipine 60 mg 06/15/20 09:00 06/17/20 08:51 Nifedipine Xl 60 Mg Tab PO 60 mg DAILY DEBBIE Administration Pantoprazole Sodium 40 mg 06/13/20 09:00 06/17/20 08:52 Pantoprazole 40 Mg Tab PO 40 mg DAILY DEBBIE Administration Polyethylene Glycol 17 gm 06/15/20 09:00 06/17/20 08:52 Polyethylene Glycol 3350 17 Gm Packet PO 17 gm DAILY DEBBIE Administration Senna/Docusate Sodium 1 tab 06/14/20 21:00 06/17/20 08:52 Senokot S 8.6-50 Mg Tab PO 1 tab BID DEBBIE Administration Sodium Chloride 10 ml 06/12/20 16:18 06/13/20 16:40 Flush - Normal Saline 10 Ml Syringe IVF 10 ml PRN PRN Administration Saline Flush Sodium Chloride 1 gm 06/12/20 21:00 06/17/20 15:14 Sodium Chloride 1 Gm Tab PO 1 gm TID DEBBIE Administration Zinc Sulfate 220 mg 06/13/20 09:00 06/17/20 08:52 Zinc Sulfate 220 Mg Cap PO 220 mg DAILY DEBBIE Administration - Exam General Appearance: NAD, awake alert Eye: PERRL, anicteric sclera ENT: normocephalic atraumatic, no oropharyngeal lesions Neck: supple, symmetric, no JVD, no thyromegaly, no lymphadenopathy Heart: RRR, no gallops, no rubs, normal peripheral pulses Heart - other findings: S1, S2 Respiratory: no wheezes, tachypneic Respiratory - other findings: diminished with coarse sounds bilat Gastrointestinal: soft, non-tender, non-distended, normal bowel sounds, no palpable masses Extremities: no cyanosis, no clubbing, no edema Skin: normal turgor, no lesions Neurological: cranial nerve grossly intact, no new deficit Musculoskeletal: normal tone, normal strength, no muscle wasting Psychiatric: normal affect, A&O x 3 Hosp A/P (1) Pneumonia due to COVID-19 virus Code(s): U07.1 - COVID-19; J12.89 - OTHER VIRAL PNEUMONIA Status: Acute Plan: Continue Remdesivir/Zithromax/Rocephin/Dexamethasone/Albuterol/Vit C/Zinc (2) Acute respiratory failure with hypoxia Code(s): J96.01 - ACUTE RESPIRATORY FAILURE WITH HYPOXIA Status: Acute Plan: Continue high-flow O2, wean as clinically indicated (3) Hyponatremia Code(s): E87.1 - HYPO-OSMOLALITY AND HYPONATREMIA Status: Acute Plan: Improving, continue serial monitoring, fluid restriction 1.2L/24h (4) HTN (hypertension) Code(s): I10 - ESSENTIAL (PRIMARY) HYPERTENSION Status: Chronic Qualifiers: Hypertension type: essential hypertension Qualified Code(s): I10 - Essential (primary) hypertension (5) Alcohol abuse Code(s): F10.10 - ALCOHOL ABUSE, UNCOMPLICATED Status: Chronic Plan: Continue ASA/Ativan - Plan continue antibiotics, PT/OT, social worker aide, respiratory therapy, incentive spirometry, DVT proph w/SCDs Stable currently Continue Zithromax/Rocephin/Dexamethasone O2 supplementation, may need home O2 Ativan 1mg po q4h prn withdrawal sx Continue Remdesivir Continue Lovenox Add Senokot-S, Miralax AM lab: BMP, CBC, Ferritin, D-dimer, CRP
[2020-06-17] MEDS: cefTRIAXone\\ROCEPHIN 1 GM in Sodium Chloride 0.9% 100 ML IVPB SCH (16:32)
[2020-06-17] MEDS: Azithromycin 250 MG TAB PO SCH (18:17)
[2020-06-17] MEDS: REMDESIVIR (EUA) 100 MG in Sodium Chloride 0.9% 250 ML 230 ML IV SCH (21:21)
[2020-06-17] MEDS: guaiFENesin/Codeine 200 mg/20 mg 10 ml Cup PO PRN (23:29)
[2020-06-18] MEDS: NIFEdipine XL 60 MG TAB PO SCH (09:45)
[2020-06-18] MEDS: Multivit, Therapeutic 1 TAB PO SCH (09:45)
[2020-06-18] MEDS: Zinc Sulfate 220 MG CAP PO SCH (09:45)
[2020-06-18] MEDS: Benzonatate 100 MG CAP PO SCH ×3 (09:46→20:23)
[2020-06-18] MEDS: Aspirin Chewable 81 MG TAB PO SCH (09:46)
[2020-06-18] MEDS: Senokot S 8.6-50 MG TAB PO SCH ×2 (09:46→20:23)
[2020-06-18] MEDS: Enoxaparin Sodium 40 MG/0.4 ML SYRINGE SC SCH ×2 (09:46→20:23)
[2020-06-18] MEDS: Furosemide 40 MG TAB PO SCH ×2 (09:46→17:23)
[2020-06-18] MEDS: Ascorbic Acid 500 mg Chewable Tablet PO SCH (09:46)
[2020-06-18] MEDS: Sodium Chloride 1 GM TAB PO SCH ×3 (09:47→20:24)
[2020-06-18] MEDS: Polyethylene Glycol 3350 17 GM Packet PO SCH (09:47)
[2020-06-18 10:54] LABS: Anion Gap 14 mmol/L (10-20); BUN (Urea Nitrogen) 23 mg/dL (8.4-25.7); Calc. Creatinine Clearance 173 mL/min (70-130); Calcium 8.6 mg/dL (7.8-10.44); Carbon Dioxide 29 mmol/L (22-29); Chloride 96 mmol/L (98-107); Glucose 121 mg/dL (70-105); Potassium 3.9 mmol/L (3.5-5.1); Sodium 135 mmol/L (136-145)
[2020-06-18] MEDS: Dexamethasone 4 MG TAB PO SCH (11:05)
--- NOTE | 2020-06-18 13:36 | PDOC.HOSPP ---
- Subjective Encounter Date: 06/18/20 Encounter Time: 13:05 Subjective: f/u for COVID PNA/hypoxic resp failure on high-flow O2 @ 40L/min. Receiving Remdesivir/Dexamethasone/Lovenox/Zithromax/Rocephin. - Objective Vital Signs & Weight: Vital Signs (12 hours) Temp Pulse Resp BP Pulse Ox 06/18/20 08:18 98.6 F 62 16 117/72 99 Weight Weight 230 lb Most Recent Monitor Data Heart Rate from ECG 88 NIBP 182/102 Respiration from ECG 22 I&O: 06/17/20 06/18/20 06/19/20 06:59 06:59 06:59 Intake Total 300 Balance 300 Result Diagrams: 06/16/20 06:14 06/18/20 10:04 Additional Labs: Laboratory Tests 06/12/20 06/12/20 06/12/20 14:49 14:49 17:10 WBC 13.1 H Neutrophils % (Manual) 92 H D-Dimer Sodium 123 L 120 L Ferritin C-Reactive Protein SARS-CoV-2 Rap RNA(RT-PCR) 06/12/20 06/12/20 06/13/20 20:00 20:29 00:42 WBC Neutrophils % (Manual) D-Dimer Sodium 121 L 119 L* Ferritin C-Reactive Protein SARS-CoV-2 Rap RNA(RT-PCR) DETECTED A* 06/13/20 06/13/20 06/13/20 06:34 09:49 12:29 WBC Neutrophils % (Manual) D-Dimer Sodium 122 L 120 L 122 L Ferritin C-Reactive Protein SARS-CoV-2 Rap RNA(RT-PCR) 06/14/20 06/14/20 06/14/20 05:46 05:46 05:46 WBC Neutrophils % (Manual) D-Dimer 6.37 H Sodium Ferritin 2173.07 H C-Reactive Protein 12.80 H SARS-CoV-2 Rap RNA(RT-PCR) 06/15/20 06/15/20 06/15/20 06:11 06:11 06:11 WBC Neutrophils % (Manual) D-Dimer 5.51 H Sodium Ferritin 1813.70 H C-Reactive Protein 8.20 H SARS-CoV-2 Rap RNA(RT-PCR) 06/16/20 06/16/20 06/16/20 06:14 06:14 08:15 WBC Neutrophils % (Manual) D-Dimer Greater than 20.00 H Sodium Ferritin 1258.79 H C-Reactive Protein 4.49 H SARS-CoV-2 Rap RNA(RT-PCR) Hospitalist ROS - Medication Medications: Active Medications Generic Name Dose Route Start Last Admin Trade Name Freq PRN Reason Stop Dose Admin Ascorbic Acid 1,000 mg 06/13/20 09:00 06/18/20 09:46 Ascorbic Acid 500 Mg Chewable Tablet PO 1,000 mg DAILY DEBBIE Administration Aspirin 81 mg 06/13/20 09:00 06/18/20 09:46 Aspirin Chewable 81 Mg Tab PO 81 mg DAILY DEBBIE Administration Azithromycin 500 mg 06/13/20 18:00 06/17/20 18:17 Azithromycin 250 Mg Tab PO 500 mg Q24HR DEBBIE Administration Benzonatate 100 mg 06/14/20 15:00 06/18/20 09:46 Benzonatate 100 Mg Cap PO 100 mg TID DEBBIE Administration Dexamethasone 6 mg 06/13/20 08:00 06/18/20 11:05 Dexamethasone 4 Mg Tab PO 6 mg QAM-WM DEBBIE Administration Enoxaparin Sodium 40 mg 06/15/20 21:00 06/18/20 09:46 Enoxaparin Sodium 40 Mg/0.4 Ml Syringe SC 40 mg 0900,2100 DEBBIE Administration Furosemide 40 mg 06/16/20 17:00 06/18/20 09:46 Furosemide 40 Mg Tab PO 40 mg 0900,1700 DEBBIE Administration Guaifenesin/Codeine Phosphate 10 ml 06/13/20 17:50 06/17/20 23:29 Guaifenesin/Codeine Phosphate 200 Mg/20 Mg 10 Ml Ud Cup PO 10 ml Q4H PRN Administration Cough Ceftriaxone Sodium 1 gm/ 100 mls @ 200 mls/hr 06/12/20 17:00 06/17/20 16:32 Sodium Chloride IVPB 100 mls 1700 DEBBIE Administration Remdesivir 100 mg/ Sodium 250 mls @ 250 mls/hr 06/16/20 22:00 06/17/20 21:21 Chloride IV 06/19/20 22:59 250 mls Q24HR DEBBIE Administration Lorazepam 1 mg 06/14/20 13:44 06/16/20 13:10 Lorazepam 1 Mg Tab PO 1 mg Q4H PRN Administration Alcohol Withdrawal Melatonin 9 mg 06/13/20 18:03 06/15/20 01:16 Melatonin 3 Mg Tab PO 9 mg HSPRN PRN Administration Insomnia Metoprolol Succinate 200 mg 06/14/20 09:00 06/18/20 09:45 Metoprolol Succinate Xl 100 Mg Tab PO 200 mg DAILY DEBBIE Administration Multivitamins 1 tab 06/13/20 09:00 06/18/20 09:45 Multivit, Therapeutic 1 Tab PO 1 tab DAILY DEBBIE Administration Nifedipine 60 mg 06/15/20 09:00 06/18/20 09:45 Nifedipine Xl 60 Mg Tab PO 60 mg DAILY DEBBIE Administration Pantoprazole Sodium 40 mg 06/13/20 09:00 06/18/20 09:46 Pantoprazole 40 Mg Tab PO 40 mg DAILY DEBBIE Administration Polyethylene Glycol 17 gm 06/15/20 09:00 06/18/20 09:47 Polyethylene Glycol 3350 17 Gm Packet PO 17 gm DAILY DEBBIE Administration Senna/Docusate Sodium 1 tab 06/14/20 21:00 06/18/20 09:46 Senokot S 8.6-50 Mg Tab PO 1 tab BID DEBBIE Administration Sodium Chloride 10 ml 06/12/20 16:18 06/13/20 16:40 Flush - Normal Saline 10 Ml Syringe IVF 10 ml PRN PRN Administration Saline Flush Sodium Chloride 1 gm 06/12/20 21:00 06/18/20 09:47 Sodium Chloride 1 Gm Tab PO 1 gm TID DEBBIE Administration Zinc Sulfate 220 mg 06/13/20 09:00 06/18/20 09:45 Zinc Sulfate 220 Mg Cap PO 220 mg DAILY DEBBIE Administration - Exam General Appearance: NAD, awake alert Eye: PERRL, anicteric sclera ENT: normocephalic atraumatic, no oropharyngeal lesions Neck: supple, symmetric, no JVD, no thyromegaly, no lymphadenopathy Heart: RRR, no gallops, no rubs, normal peripheral pulses Heart - other findings: S1, S2 Respiratory: no wheezes, tachypneic Respiratory - other findings: diminished bilat, scattered coarse sounds bilat Gastrointestinal: soft, non-tender, non-distended, normal bowel sounds, no palpable masses Extremities: no cyanosis, no clubbing, 2+ LE edema Skin: normal turgor, no lesions Neurological: cranial nerve grossly intact, no new deficit Musculoskeletal: normal tone, normal strength, no muscle wasting Psychiatric: normal affect, A&O x 3 Hosp A/P (1) Pneumonia due to COVID-19 virus Code(s): U07.1 - COVID-19; J12.89 - OTHER VIRAL PNEUMONIA Status: Acute Plan: Continue Remdesivir/Dexamethasone/Lovenox/Zithromax/Rocephin/Vit C/Zinc (2) Acute respiratory failure with hypoxia Code(s): J96.01 - ACUTE RESPIRATORY FAILURE WITH HYPOXIA Status: Acute Plan: Continue O2 supplementation, wean off high-flow O2 (3) Hyponatremia Code(s): E87.1 - HYPO-OSMOLALITY AND HYPONATREMIA Status: Acute Plan: Improving, continue Na+ monitoring (4) HTN (hypertension) Code(s): I10 - ESSENTIAL (PRIMARY) HYPERTENSION Status: Chronic Qualifiers: Hypertension type: essential hypertension Qualified Code(s): I10 - Essential (primary) hypertension (5) Alcohol abuse Code(s): F10.10 - ALCOHOL ABUSE, UNCOMPLICATED Status: Chronic Plan: ASE protocol/Ativan - Plan continue antibiotics, social science professor, respiratory therapy, incentive spirometry, out of bed/ambulate, DVT proph w/lovenox, DVT proph w/SCDs Stable currently Continue Zithromax/Rocephin/Dexamethasone O2 supplementation, may need home O2 Ativan 1mg po q4h prn withdrawal sx Continue Remdesivir Continue Lovenox Add Senokot-S, Miralax AM lab: BMP, CBC, Ferritin, D-dimer, CRP
--- NOTE | 2020-06-18 15:01 | PDOC.NEPPN ---
- Subjective Encounter Date: 06/18/20 Subjective: Seen in follow up for hyponatremia. Still on oxygen. - Objective Vital Signs & Weight: Vital Signs (12 hours) Temp Pulse Resp BP Pulse Ox 06/18/20 08:18 98.6 F 62 16 117/72 99 Weight Weight 230 lb Most Recent Monitor Data Heart Rate from ECG 88 NIBP 182/102 Respiration from ECG 22 I&O: 06/17/20 06/18/20 06/19/20 06:59 06:59 06:59 Intake Total 300 Balance 300 Result Diagrams: 06/16/20 06:14 06/18/20 10:04 Nephrology ROS - Medication Medications: Active Medications Generic Name Dose Route Start Last Admin Trade Name Freq PRN Reason Stop Dose Admin Ascorbic Acid 1,000 mg 06/13/20 09:00 06/18/20 09:46 Ascorbic Acid 500 Mg Chewable Tablet PO 1,000 mg DAILY DEBBIE Administration Aspirin 81 mg 06/13/20 09:00 06/18/20 09:46 Aspirin Chewable 81 Mg Tab PO 81 mg DAILY DEBBIE Administration Azithromycin 500 mg 06/13/20 18:00 06/17/20 18:17 Azithromycin 250 Mg Tab PO 500 mg Q24HR DEBBIE Administration Benzonatate 100 mg 06/14/20 15:00 06/18/20 09:46 Benzonatate 100 Mg Cap PO 100 mg TID DEBBIE Administration Dexamethasone 6 mg 06/13/20 08:00 06/18/20 11:05 Dexamethasone 4 Mg Tab PO 6 mg QAM-WM DEBBIE Administration Enoxaparin Sodium 40 mg 06/15/20 21:00 06/18/20 09:46 Enoxaparin Sodium 40 Mg/0.4 Ml Syringe SC 40 mg 0900,2100 DEBBIE Administration Furosemide 40 mg 06/16/20 17:00 06/18/20 09:46 Furosemide 40 Mg Tab PO 40 mg 0900,1700 DEBBIE Administration Guaifenesin/Codeine Phosphate 10 ml 06/13/20 17:50 06/17/20 23:29 Guaifenesin/Codeine Phosphate 200 Mg/20 Mg 10 Ml Ud Cup PO 10 ml Q4H PRN Administration Cough Ceftriaxone Sodium 1 gm/ 100 mls @ 200 mls/hr 06/12/20 17:00 06/17/20 16:32 Sodium Chloride IVPB 100 mls 1700 DEBBIE Administration Remdesivir 100 mg/ Sodium 250 mls @ 250 mls/hr 06/16/20 22:00 06/17/20 21:21 Chloride IV 06/19/20 22:59 250 mls Q24HR DEBBIE Administration Lorazepam 1 mg 06/14/20 13:44 06/16/20 13:10 Lorazepam 1 Mg Tab PO 1 mg Q4H PRN Administration Alcohol Withdrawal Melatonin 9 mg 06/13/20 18:03 06/15/20 01:16 Melatonin 3 Mg Tab PO 9 mg HSPRN PRN Administration Insomnia Metoprolol Succinate 200 mg 06/14/20 09:00 06/18/20 09:45 Metoprolol Succinate Xl 100 Mg Tab PO 200 mg DAILY DEBBIE Administration Multivitamins 1 tab 06/13/20 09:00 06/18/20 09:45 Multivit, Therapeutic 1 Tab PO 1 tab DAILY DEBBIE Administration Nifedipine 60 mg 06/15/20 09:00 06/18/20 09:45 Nifedipine Xl 60 Mg Tab PO 60 mg DAILY DEBBIE Administration Pantoprazole Sodium 40 mg 06/13/20 09:00 06/18/20 09:46 Pantoprazole 40 Mg Tab PO 40 mg DAILY DEBBIE Administration Polyethylene Glycol 17 gm 06/15/20 09:00 06/18/20 09:47 Polyethylene Glycol 3350 17 Gm Packet PO 17 gm DAILY DEBBIE Administration Senna/Docusate Sodium 1 tab 06/14/20 21:00 06/18/20 09:46 Senokot S 8.6-50 Mg Tab PO 1 tab BID DEBBIE Administration Sodium Chloride 10 ml 06/12/20 16:18 06/13/20 16:40 Flush - Normal Saline 10 Ml Syringe IVF 10 ml PRN PRN Administration Saline Flush Sodium Chloride 1 gm 06/12/20 21:00 06/18/20 09:47 Sodium Chloride 1 Gm Tab PO 1 gm TID DEBBIE Administration Zinc Sulfate 220 mg 06/13/20 09:00 06/18/20 09:45 Zinc Sulfate 220 Mg Cap PO 220 mg DAILY DEBBIE Administration - Exam General Appearance: awake alert Eye: anicteric sclera ENT: normocephalic atraumatic, moist mucosa Neck: supple, symmetric Respiratory - other findings: fair air entry bilateral with some crackles and transmitted sound Cardiovascular: RRR Gastrointestinal: soft, non-tender, non-distended, normal bowel sounds Extremities: 1+ LE edema Neurological: CN's grossly intact, no focal deficits PSYCH: A&O x 3 Nephrology Results - Labs Result Diagrams: 06/16/20 06:14 06/18/20 10:04 Lab results: WBC 11.2 thou/uL (4.8-10.8) H 06/16/20 06:14 Hgb 13.5 g/dL (14.0-18.0) L 06/16/20 06:14 Hct 39.2 % (42.0-52.0) L 06/16/20 06:14 MCV 96.1 fL (78.0-98.0) 06/16/20 06:14 Plt Count 254 thou/uL (130-400) 06/16/20 06:14 Neutrophils % 90.2 % (42.0-75.0) H 06/14/20 05:46 Band Neuts % (Manual) 2 % (5-11) L 06/16/20 06:14 ESR Westergren 38 mm/hr (Less than 20) H 06/12/20 17:10 Sodium 135 mmol/L (136-145) L 06/18/20 10:04 Potassium 3.9 mmol/L (3.5-5.1) 06/18/20 10:04 Chloride 96 mmol/L (98-107) L 06/18/20 10:04 Carbon Dioxide 29 mmol/L (22-29) 06/18/20 10:04 BUN 23 mg/dL (8.4-25.7) 06/18/20 10:04 Creatinine 0.71 mg/dL (0.7-1.3) 06/18/20 10:04 Glucose 121 mg/dL (70-105) H 06/18/20 10:04 Calcium 8.6 mg/dL (7.8-10.44) 06/18/20 10:04 Total Bilirubin 0.8 mg/dL (0.2-1.2) 06/17/20 07:26 AST 94 U/L (5-34) H 06/17/20 07:26 ALT 77 U/L (8-55) H 06/17/20 07:26 Alkaline Phosphatase 67 U/L (40-110) 06/17/20 07:26 Troponin I 0.012 ng/mL (< 0.028) 06/12/20 14:49 C-Reactive Protein 3.24 mg/dL (= or < 0.5) H 06/18/20 05:47 B-Natriuretic Peptide 112.5 pg/mL (0-100) H 06/12/20 14:49 Serum Total Protein 6.2 g/dL (6.0-8.3) 06/17/20 07:26 Albumin 2.9 g/dL (3.5-5.0) L 06/17/20 07:26 Sodium 135 mmol/L (136-145) L 06/18/20 10:04 Potassium 3.9 mmol/L (3.5-5.1) 06/18/20 10:04 Chloride 96 mmol/L (98-107) L 06/18/20 10:04 Carbon Dioxide 29 mmol/L (22-29) 06/18/20 10:04 Anion Gap 14 mmol/L (10-20) 06/18/20 10:04 BUN 23 mg/dL (8.4-25.7) 06/18/20 10:04 Creatinine 0.71 mg/dL (0.7-1.3) 06/18/20 10:04 Glucose 121 mg/dL (70-105) H 06/18/20 10:04 Calcium 8.6 mg/dL (7.8-10.44) 06/18/20 10:04 Albumin 2.9 g/dL (3.5-5.0) L 06/17/20 07:26 Nephrology AP PN - Plan ASSESSMENT Hyponatremia:sodium is trending up fluid restriction and salt tablet. Na today is 135. 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 Bilateral leg edemaImproving with lasix PLAN Continue nifedipine for BP Continue salt tablet, lasix and fluid restriction. Other treatments as per primary attending. Follow electrolytes.
[2020-06-18] MEDS: cefTRIAXone\\ROCEPHIN 1 GM in Sodium Chloride 0.9% 100 ML IVPB SCH (17:23)
[2020-06-18] MEDS: Azithromycin 250 MG TAB PO SCH (17:26)
[2020-06-18] MEDS: REMDESIVIR (EUA) 100 MG in Sodium Chloride 0.9% 250 ML 230 ML IV SCH (21:41)
[2020-06-18] MEDS: guaiFENesin/Codeine 200 mg/20 mg 10 ml Cup PO PRN (22:50)
[2020-06-19 06:21] LABS: Hemoglobin 13.9 g/dL (14.0-18.0); Mean Corpuscular HGB CONC 32.7 g/dL (32.0-36.0); Mean Corpuscular Hemoglobin 31.9 pg (27.0-31.0); Mean Corpuscular Volume 97.6 fL (78.0-98.0); Mean Platelet Volume 7.6 fL (7.4-10.4); Platelet Count 423 thou/uL (130-400); RBC Distribution Width 11.6 % (11.5-14.5); Red Blood Cell (RBC) Count 4.35 mill/uL (4.70-6.10); White Blood Cell (WBC) Count 8.2 thou/uL (4.8-10.8)
[2020-06-19 06:43] LABS: Anion Gap 13 mmol/L (10-20); BUN (Urea Nitrogen) 20 mg/dL (8.4-25.7); Calc. Creatinine Clearance 176 mL/min (70-130); Calcium 8.7 mg/dL (7.8-10.44); Carbon Dioxide 30 mmol/L (22-29); Chloride 98 mmol/L (98-107); Glucose 103 mg/dL (70-105); Potassium 4.6 mmol/L (3.5-5.1); Sodium 136 mmol/L (136-145)
[2020-06-19] MEDS: Dexamethasone 4 MG TAB PO SCH (07:47)
[2020-06-19] MEDS: Multivit, Therapeutic 1 TAB PO SCH (07:47)
[2020-06-19] MEDS: Ascorbic Acid 500 mg Chewable Tablet PO SCH (07:47)
[2020-06-19] MEDS: Zinc Sulfate 220 MG CAP PO SCH (07:47)
[2020-06-19] MEDS: Senokot S 8.6-50 MG TAB PO SCH ×2 (07:48→20:01)
[2020-06-19] MEDS: Benzonatate 100 MG CAP PO SCH ×3 (07:48→20:01)
[2020-06-19] MEDS: Aspirin Chewable 81 MG TAB PO SCH (07:48)
[2020-06-19] MEDS: Furosemide 40 MG TAB PO SCH ×2 (07:48→16:55)
[2020-06-19] MEDS: Polyethylene Glycol 3350 17 GM Packet PO SCH (07:48)
[2020-06-19] MEDS: Sodium Chloride 1 GM TAB PO SCH ×3 (07:49→20:00)
[2020-06-19] MEDS: Enoxaparin Sodium 40 MG/0.4 ML SYRINGE SC SCH ×2 (07:51→20:00)
[2020-06-19] MEDS: NIFEdipine XL 60 MG TAB PO SCH (07:57)
--- NOTE | 2020-06-19 09:37 | PDOC.NEPPN ---
- Subjective Encounter Date: 06/19/20 Subjective: Feeling better. No new problem. oxygen requiring is decreasing. - Objective Vital Signs & Weight: Vital Signs (12 hours) Temp Pulse Resp BP BP BP Pulse Ox 06/19/20 08:36 100 06/19/20 07:57 53 L 107/68 06/19/20 07:54 97.7 F 53 L 18 107/68 100 06/19/20 05:45 52 L 136/82 97 06/19/20 02:20 96 06/19/20 01:00 94 L 06/18/20 23:40 99 06/18/20 23:00 99 06/18/20 21:50 99 Weight Weight 230 lb Most Recent Monitor Data Heart Rate from ECG 88 NIBP 182/102 Respiration from ECG 22 I&O: 06/18/20 06/19/20 06/20/20 06:59 06:59 06:59 Intake Total 300 240 Balance 300 240 Result Diagrams: 06/19/20 05:52 06/19/20 05:52 Nephrology ROS - Medication Medications: Active Medications Generic Name Dose Route Start Last Admin Trade Name Freq PRN Reason Stop Dose Admin Ascorbic Acid 1,000 mg 06/13/20 09:00 06/19/20 07:47 Ascorbic Acid 500 Mg Chewable Tablet PO 1,000 mg DAILY DEBBIE Administration Aspirin 81 mg 06/13/20 09:00 06/19/20 07:48 Aspirin Chewable 81 Mg Tab PO 81 mg DAILY DEBBIE Administration Azithromycin 500 mg 06/13/20 18:00 06/18/20 17:26 Azithromycin 250 Mg Tab PO 500 mg Q24HR DEBBIE Administration Benzonatate 100 mg 06/14/20 15:00 06/19/20 07:48 Benzonatate 100 Mg Cap PO 100 mg TID DEBBIE Administration Dexamethasone 6 mg 06/13/20 08:00 06/19/20 07:47 Dexamethasone 4 Mg Tab PO 6 mg QAM-WM DEBBIE Administration Enoxaparin Sodium 40 mg 06/15/20 21:00 06/19/20 07:51 Enoxaparin Sodium 40 Mg/0.4 Ml Syringe SC 40 mg 0900,2100 DEBBIE Administration Furosemide 40 mg 06/16/20 17:00 06/19/20 07:48 Furosemide 40 Mg Tab PO 40 mg 0900,1700 DEBBIE Administration Guaifenesin/Codeine Phosphate 10 ml 06/13/20 17:50 06/18/20 22:50 Guaifenesin/Codeine Phosphate 200 Mg/20 Mg 10 Ml Ud Cup PO 10 ml Q4H PRN Administration Cough Ceftriaxone Sodium 1 gm/ 100 mls @ 200 mls/hr 06/12/20 17:00 06/18/20 17:23 Sodium Chloride IVPB 100 mls 1700 DEBBIE Administration Remdesivir 100 mg/ Sodium 250 mls @ 250 mls/hr 06/16/20 22:00 06/18/20 21:41 Chloride IV 06/19/20 22:59 250 mls Q24HR DEBBIE Administration Lorazepam 1 mg 06/14/20 13:44 06/16/20 13:10 Lorazepam 1 Mg Tab PO 1 mg Q4H PRN Administration Alcohol Withdrawal Melatonin 9 mg 06/13/20 18:03 06/15/20 01:16 Melatonin 3 Mg Tab PO 9 mg HSPRN PRN Administration Insomnia Metoprolol Succinate 200 mg 06/14/20 09:00 06/19/20 07:48 Metoprolol Succinate Xl 100 Mg Tab PO 200 mg DAILY DEBBIE Administration Multivitamins 1 tab 06/13/20 09:00 06/19/20 07:47 Multivit, Therapeutic 1 Tab PO 1 tab DAILY DEBBIE Administration Nifedipine 60 mg 06/15/20 09:00 06/19/20 07:57 Nifedipine Xl 60 Mg Tab PO 60 mg DAILY DEBBIE Administration Pantoprazole Sodium 40 mg 06/13/20 09:00 06/19/20 07:49 Pantoprazole 40 Mg Tab PO 40 mg DAILY DEBBIE Administration Polyethylene Glycol 17 gm 06/15/20 09:00 06/19/20 07:48 Polyethylene Glycol 3350 17 Gm Packet PO 17 gm DAILY DEBBIE Administration Senna/Docusate Sodium 1 tab 06/14/20 21:00 06/19/20 07:48 Senokot S 8.6-50 Mg Tab PO 1 tab BID DEBBIE Administration Sodium Chloride 10 ml 06/12/20 16:18 06/18/20 17:26 Flush - Normal Saline 10 Ml Syringe IVF 10 ml PRN PRN Administration Saline Flush Sodium Chloride 1 gm 06/12/20 21:00 06/19/20 07:49 Sodium Chloride 1 Gm Tab PO 1 gm TID DEBBIE Administration Zinc Sulfate 220 mg 06/13/20 09:00 06/19/20 07:47 Zinc Sulfate 220 Mg Cap PO 220 mg DAILY DEBBIE Administration - Exam General Appearance: awake alert Eye: anicteric sclera ENT: normocephalic atraumatic Neck: symmetric, no JVD Respiratory: no ronchi, normal chest expansion, no tachypnea Respiratory - other findings: bilateral crackles Cardiovascular: RRR Gastrointestinal: non-tender, non-distended, normal bowel sounds Extremities - other findings: bilateral ankle and feet edema noted Neurological: CN's grossly intact, no focal deficits PSYCH: A&O x 3 Nephrology Results - Labs Result Diagrams: 06/19/20 05:52 06/19/20 05:52 Lab results: WBC 8.2 thou/uL (4.8-10.8) 06/19/20 05:52 Hgb 13.9 g/dL (14.0-18.0) L 06/19/20 05:52 Hct 42.4 % (42.0-52.0) 06/19/20 05:52 MCV 97.6 fL (78.0-98.0) 06/19/20 05:52 Plt Count 423 thou/uL (130-400) H 06/19/20 05:52 Neutrophils % 90.2 % (42.0-75.0) H 06/14/20 05:46 Band Neuts % (Manual) 2 % (5-11) L 06/16/20 06:14 ESR Westergren 38 mm/hr (Less than 20) H 06/12/20 17:10 Sodium 136 mmol/L (136-145) 06/19/20 05:52 Potassium 4.6 mmol/L (3.5-5.1) 06/19/20 05:52 Chloride 98 mmol/L (98-107) 06/19/20 05:52 Carbon Dioxide 30 mmol/L (22-29) H 06/19/20 05:52 BUN 20 mg/dL (8.4-25.7) 06/19/20 05:52 Creatinine 0.70 mg/dL (0.7-1.3) 06/19/20 05:52 Glucose 103 mg/dL (70-105) 06/19/20 05:52 Calcium 8.7 mg/dL (7.8-10.44) 06/19/20 05:52 Total Bilirubin 0.8 mg/dL (0.2-1.2) 06/17/20 07:26 AST 94 U/L (5-34) H 06/17/20 07:26 ALT 77 U/L (8-55) H 06/17/20 07:26 Alkaline Phosphatase 67 U/L (40-110) 06/17/20 07:26 Troponin I 0.012 ng/mL (< 0.028) 06/12/20 14:49 C-Reactive Protein 3.24 mg/dL (= or < 0.5) H 06/18/20 05:47 B-Natriuretic Peptide 112.5 pg/mL (0-100) H 06/12/20 14:49 Serum Total Protein 6.2 g/dL (6.0-8.3) 06/17/20 07:26 Albumin 2.9 g/dL (3.5-5.0) L 06/17/20 07:26 Sodium 136 mmol/L (136-145) 06/19/20 05:52 Potassium 4.6 mmol/L (3.5-5.1) 06/19/20 05:52 Chloride 98 mmol/L (98-107) 06/19/20 05:52 Carbon Dioxide 30 mmol/L (22-29) H 06/19/20 05:52 Anion Gap 13 mmol/L (10-20) 06/19/20 05:52 BUN 20 mg/dL (8.4-25.7) 06/19/20 05:52 Creatinine 0.70 mg/dL (0.7-1.3) 06/19/20 05:52 Glucose 103 mg/dL (70-105) 06/19/20 05:52 Calcium 8.7 mg/dL (7.8-10.44) 06/19/20 05:52 Albumin 2.9 g/dL (3.5-5.0) L 06/17/20 07:26 Nephrology AP PN - Plan ASSESSMENT Hyponatremia: Sodium continue to trend up with fluid restriction and salt tablet. Na today is 136. 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 Bilateral leg edema. Improved with lasix. ? CHF. PLAN Continue salt tablet, lasix and fluid restriction. Recheck electrolyte in the am. Get Echo when out of isolation. Other treatments as per primary attending..
--- NOTE | 2020-06-19 15:17 | PDOC.HOSPP ---
- Subjective Encounter Date: 06/19/20 Encounter Time: 14:35 Subjective: f/u for COVID PNA/hypoxic resp failure currently on O2 @ 5L/min NC. Feels better overall off of high-flow system. - Objective Vital Signs & Weight: Vital Signs (12 hours) Temp Pulse Resp BP BP BP Pulse Ox 06/19/20 08:36 100 06/19/20 07:57 53 L 107/68 06/19/20 07:54 97.7 F 53 L 18 107/68 100 06/19/20 05:45 52 L 136/82 97 Weight Weight 230 lb Most Recent Monitor Data Heart Rate from ECG 88 NIBP 182/102 Respiration from ECG 22 I&O: 06/18/20 06/19/20 06/20/20 06:59 06:59 06:59 Intake Total 300 240 Balance 300 240 Result Diagrams: 06/19/20 05:52 06/19/20 05:52 Additional Labs: Laboratory Tests 06/12/20 06/12/20 06/12/20 14:49 14:49 17:10 WBC 13.1 H Neutrophils % (Manual) 92 H D-Dimer Sodium 123 L 120 L Ferritin C-Reactive Protein SARS-CoV-2 Rap RNA(RT-PCR) 06/12/20 06/12/20 06/13/20 20:00 20:29 00:42 WBC Neutrophils % (Manual) D-Dimer Sodium 121 L 119 L* Ferritin C-Reactive Protein SARS-CoV-2 Rap RNA(RT-PCR) DETECTED A* 06/13/20 06/13/20 06/13/20 06:34 09:49 12:29 WBC Neutrophils % (Manual) D-Dimer Sodium 122 L 120 L 122 L Ferritin C-Reactive Protein SARS-CoV-2 Rap RNA(RT-PCR) 06/14/20 06/14/20 06/14/20 05:46 05:46 05:46 WBC Neutrophils % (Manual) D-Dimer 6.37 H Sodium Ferritin 2173.07 H C-Reactive Protein 12.80 H SARS-CoV-2 Rap RNA(RT-PCR) 06/15/20 06/15/20 06/15/20 06:11 06:11 06:11 WBC Neutrophils % (Manual) D-Dimer 5.51 H Sodium Ferritin 1813.70 H C-Reactive Protein 8.20 H SARS-CoV-2 Rap RNA(RT-PCR) 06/16/20 06/16/20 06/16/20 06:14 06:14 08:15 WBC Neutrophils % (Manual) D-Dimer Greater than 20.00 H Sodium Ferritin 1258.79 H C-Reactive Protein 4.49 H SARS-CoV-2 Rap RNA(RT-PCR) Hospitalist ROS - Medication Medications: Active Medications Generic Name Dose Route Start Last Admin Trade Name Freq PRN Reason Stop Dose Admin Ascorbic Acid 1,000 mg 06/13/20 09:00 06/19/20 07:47 Ascorbic Acid 500 Mg Chewable Tablet PO 1,000 mg DAILY DEBBIE Administration Aspirin 81 mg 06/13/20 09:00 06/19/20 07:48 Aspirin Chewable 81 Mg Tab PO 81 mg DAILY DEBBIE Administration Azithromycin 500 mg 06/13/20 18:00 06/18/20 17:26 Azithromycin 250 Mg Tab PO 500 mg Q24HR DEBBIE Administration Benzonatate 100 mg 06/14/20 15:00 06/19/20 14:25 Benzonatate 100 Mg Cap PO 100 mg TID DEBBIE Administration Dexamethasone 6 mg 06/13/20 08:00 06/19/20 07:47 Dexamethasone 4 Mg Tab PO 6 mg QAM-WM DEBBIE Administration Enoxaparin Sodium 40 mg 06/15/20 21:00 06/19/20 07:51 Enoxaparin Sodium 40 Mg/0.4 Ml Syringe SC 40 mg 0900,2100 DEBBIE Administration Furosemide 40 mg 06/16/20 17:00 06/19/20 07:48 Furosemide 40 Mg Tab PO 40 mg 0900,1700 DEBBIE Administration Guaifenesin/Codeine Phosphate 10 ml 06/13/20 17:50 06/18/20 22:50 Guaifenesin/Codeine Phosphate 200 Mg/20 Mg 10 Ml Ud Cup PO 10 ml Q4H PRN Administration Cough Ceftriaxone Sodium 1 gm/ 100 mls @ 200 mls/hr 06/12/20 17:00 06/18/20 17:23 Sodium Chloride IVPB 100 mls 1700 DEBBIE Administration Remdesivir 100 mg/ Sodium 250 mls @ 250 mls/hr 06/16/20 22:00 06/18/20 21:41 Chloride IV 06/19/20 22:59 250 mls Q24HR DEBBIE Administration Lorazepam 1 mg 06/14/20 13:44 06/16/20 13:10 Lorazepam 1 Mg Tab PO 1 mg Q4H PRN Administration Alcohol Withdrawal Melatonin 9 mg 06/13/20 18:03 06/15/20 01:16 Melatonin 3 Mg Tab PO 9 mg HSPRN PRN Administration Insomnia Metoprolol Succinate 200 mg 06/14/20 09:00 06/19/20 07:48 Metoprolol Succinate Xl 100 Mg Tab PO 200 mg DAILY DEBBIE Administration Multivitamins 1 tab 06/13/20 09:00 06/19/20 07:47 Multivit, Therapeutic 1 Tab PO 1 tab DAILY DEBBIE Administration Nifedipine 60 mg 06/15/20 09:00 06/19/20 07:57 Nifedipine Xl 60 Mg Tab PO 60 mg DAILY DEBBIE Administration Pantoprazole Sodium 40 mg 06/13/20 09:00 06/19/20 07:49 Pantoprazole 40 Mg Tab PO 40 mg DAILY DEBBIE Administration Polyethylene Glycol 17 gm 06/15/20 09:00 06/19/20 07:48 Polyethylene Glycol 3350 17 Gm Packet PO 17 gm DAILY DEBBIE Administration Senna/Docusate Sodium 1 tab 06/14/20 21:00 06/19/20 07:48 Senokot S 8.6-50 Mg Tab PO 1 tab BID DEBBIE Administration Sodium Chloride 10 ml 06/12/20 16:18 06/18/20 17:26 Flush - Normal Saline 10 Ml Syringe IVF 10 ml PRN PRN Administration Saline Flush Sodium Chloride 1 gm 06/12/20 21:00 06/19/20 14:25 Sodium Chloride 1 Gm Tab PO 1 gm TID DEBBIE Administration Zinc Sulfate 220 mg 06/13/20 09:00 06/19/20 07:47 Zinc Sulfate 220 Mg Cap PO 220 mg DAILY DEBBIE Administration - Exam General Appearance: NAD, awake alert Eye: PERRL, anicteric sclera ENT: normocephalic atraumatic, no oropharyngeal lesions Neck: supple, symmetric, no JVD, no thyromegaly, no lymphadenopathy Heart: RRR, no gallops, no rubs, normal peripheral pulses Heart - other findings: S1, S2 Respiratory: tachypneic Respiratory - other findings: few scattered rhonchi Gastrointestinal: soft, non-tender, non-distended, normal bowel sounds, no palpable masses Extremities: no cyanosis, no clubbing, 1+ LE edema Skin: normal turgor, no lesions Neurological: cranial nerve grossly intact, no new deficit Musculoskeletal: normal tone, normal strength, no muscle wasting Psychiatric: normal affect, A&O x 3 Hosp A/P (1) Pneumonia due to COVID-19 virus Code(s): U07.1 - COVID-19; J12.89 - OTHER VIRAL PNEUMONIA Status: Acute Plan: Continue Dexamethasone/Zithromax/Rocephin/Vit C/Zinc/Lovenox, s/p Remdesivir (2) Acute respiratory failure with hypoxia Code(s): J96.01 - ACUTE RESPIRATORY FAILURE WITH HYPOXIA Status: Acute Plan: Assess for home O2, continue current level 5L/min (3) Hyponatremia Code(s): E87.1 - HYPO-OSMOLALITY AND HYPONATREMIA Status: Acute (4) HTN (hypertension) Code(s): I10 - ESSENTIAL (PRIMARY) HYPERTENSION Status: Chronic Qualifiers: Hypertension type: essential hypertension Qualified Code(s): I10 - Essential (primary) hypertension (5) Alcohol abuse Code(s): F10.10 - ALCOHOL ABUSE, UNCOMPLICATED Status: Chronic - Plan continue antibiotics, group social worker, respiratory therapy, out of bed/ambulate, DVT proph w/SCDs Stable currently Continue Zithromax/Rocephin/Dexamethasone O2 supplementation, assess for home O2 Ativan 1mg po q4h prn withdrawal sx Complete Remdesivir Continue Lovenox Add Senokot-S, Miralax AM lab: Ferritin, D-dimer, CRP Likely home 06/20/20 with home O2
[2020-06-19] MEDS: cefTRIAXone\\ROCEPHIN 1 GM in Sodium Chloride 0.9% 100 ML IVPB SCH (16:54)
[2020-06-19] MEDS: Azithromycin 250 MG TAB PO SCH (16:55)
[2020-06-19] MEDS: REMDESIVIR (EUA) 100 MG in Sodium Chloride 0.9% 250 ML 230 ML IV SCH (21:49)
[2020-06-19] MEDS: guaiFENesin/Codeine 200 mg/20 mg 10 ml Cup PO PRN (23:14)
[2020-06-20] MEDS: Dexamethasone 4 MG TAB PO SCH (07:39)
[2020-06-20] MEDS: Sodium Chloride 1 GM TAB PO SCH ×3 (07:39→20:18)
[2020-06-20] MEDS: Aspirin Chewable 81 MG TAB PO SCH (07:40)
[2020-06-20] MEDS: Zinc Sulfate 220 MG CAP PO SCH (07:40)
[2020-06-20] MEDS: Benzonatate 100 MG CAP PO SCH ×3 (07:40→20:18)
[2020-06-20] MEDS: Senokot S 8.6-50 MG TAB PO SCH ×2 (07:40→20:18)
[2020-06-20] MEDS: Ascorbic Acid 500 mg Chewable Tablet PO SCH (07:40)
[2020-06-20] MEDS: Multivit, Therapeutic 1 TAB PO SCH (07:40)
[2020-06-20] MEDS: NIFEdipine XL 60 MG TAB PO SCH (07:41)
[2020-06-20] MEDS: Furosemide 40 MG TAB PO SCH (07:41)
[2020-06-20] MEDS: Polyethylene Glycol 3350 17 GM Packet PO SCH (07:41)
[2020-06-20] MEDS: Enoxaparin Sodium 40 MG/0.4 ML SYRINGE SC SCH ×2 (07:41→20:18)
[2020-06-20 08:58] LABS: Anion Gap 12 mmol/L (10-20); BUN (Urea Nitrogen) 24 mg/dL (8.4-25.7); Calc. Creatinine Clearance 162 mL/min (70-130); Calcium 8.8 mg/dL (7.8-10.44); Carbon Dioxide 33 mmol/L (22-29); Chloride 98 mmol/L (98-107); Glucose 98 mg/dL (70-105); Potassium 4.3 mmol/L (3.5-5.1); Sodium 139 mmol/L (136-145)
--- NOTE | 2020-06-20 10:28 | PDOC.NEPPN ---
- Subjective Encounter Date: 06/20/20 Subjective: Feeling better. Still with leg edema - Objective Vital Signs & Weight: Vital Signs (12 hours) Temp Pulse Resp BP BP Pulse Ox 06/20/20 08:46 99 06/20/20 07:41 59 L 115/71 06/20/20 07:35 97.6 F 55 L 16 115/71 99 06/20/20 00:11 98 Weight Weight 230 lb Most Recent Monitor Data Heart Rate from ECG 88 NIBP 182/102 Respiration from ECG 22 I&O: 06/19/20 06/20/20 06/21/20 06:59 06:59 06:59 Intake Total 740 1260 Balance 740 1260 Result Diagrams: 06/19/20 05:52 06/20/20 08:19 Nephrology ROS - Medication Medications: Active Medications Generic Name Dose Route Start Last Admin Trade Name Freq PRN Reason Stop Dose Admin Ascorbic Acid 1,000 mg 06/13/20 09:00 06/20/20 07:40 Ascorbic Acid 500 Mg Chewable Tablet PO 1,000 mg DAILY DEBBIE Administration Aspirin 81 mg 06/13/20 09:00 06/20/20 07:40 Aspirin Chewable 81 Mg Tab PO 81 mg DAILY DEBBIE Administration Azithromycin 500 mg 06/13/20 18:00 06/19/20 16:55 Azithromycin 250 Mg Tab PO 500 mg Q24HR DEBBIE Administration Benzonatate 100 mg 06/14/20 15:00 06/20/20 07:40 Benzonatate 100 Mg Cap PO 100 mg TID DEBBIE Administration Dexamethasone 6 mg 06/13/20 08:00 06/20/20 07:39 Dexamethasone 4 Mg Tab PO 6 mg QAM- DEBBIE Administration Enoxaparin Sodium 40 mg 06/15/20 21:00 06/20/20 07:41 Enoxaparin Sodium 40 Mg/0.4 Ml Syringe SC 40 mg 0900,2100 DEBBIE Administration Furosemide 40 mg 06/16/20 17:00 06/20/20 07:41 Furosemide 40 Mg Tab PO 40 mg 0900,1700 DEBBIE Administration Guaifenesin/Codeine Phosphate 10 ml 06/13/20 17:50 06/19/20 23:14 Guaifenesin/Codeine Phosphate 200 Mg/20 Mg 10 Ml Ud Cup PO 10 ml Q4H PRN Administration Cough Ceftriaxone Sodium 1 gm/ 100 mls @ 200 mls/hr 06/12/20 17:00 06/19/20 16:54 Sodium Chloride IVPB 100 mls 1700 DEBBIE Administration Lorazepam 1 mg 06/14/20 13:44 06/16/20 13:10 Lorazepam 1 Mg Tab PO 1 mg Q4H PRN Administration Alcohol Withdrawal Melatonin 9 mg 06/13/20 18:03 06/15/20 01:16 Melatonin 3 Mg Tab PO 9 mg HSPRN PRN Administration Insomnia Metoprolol Succinate 200 mg 06/14/20 09:00 06/20/20 07:42 Metoprolol Succinate Xl 100 Mg Tab PO 200 mg DAILY DEBBIE Administration Multivitamins 1 tab 06/13/20 09:00 06/20/20 07:40 Multivit, Therapeutic 1 Tab PO 1 tab DAILY DEBBIE Administration Nifedipine 60 mg 06/15/20 09:00 06/20/20 07:41 Nifedipine Xl 60 Mg Tab PO 60 mg DAILY DEBBIE Administration Pantoprazole Sodium 40 mg 06/13/20 09:00 06/20/20 07:41 Pantoprazole 40 Mg Tab PO 40 mg DAILY DEBBIE Administration Polyethylene Glycol 17 gm 06/15/20 09:00 06/20/20 07:41 Polyethylene Glycol 3350 17 Gm Packet PO 17 gm DAILY DEBBIE Administration Senna/Docusate Sodium 1 tab 06/14/20 21:00 06/20/20 07:40 Senokot S 8.6-50 Mg Tab PO 1 tab BID DEBBIE Administration Sodium Chloride 10 ml 06/12/20 16:18 06/18/20 17:26 Flush - Normal Saline 10 Ml Syringe IVF 10 ml PRN PRN Administration Saline Flush Sodium Chloride 1 gm 06/12/20 21:00 06/20/20 07:39 Sodium Chloride 1 Gm Tab PO 1 gm TID DEBBIE Administration Zinc Sulfate 220 mg 06/13/20 09:00 06/20/20 07:40 Zinc Sulfate 220 Mg Cap PO 220 mg DAILY DEBBIE Administration - Exam General Appearance: awake alert Eye: anicteric sclera ENT: normocephalic atraumatic Neck: symmetric, no JVD Respiratory - other findings: fair air entry with few crackles Cardiovascular: RRR Gastrointestinal: non-tender, non-distended, normal bowel sounds Extremities: 1+ LE edema Neurological: CN's grossly intact, no focal deficits PSYCH: A&O x 3 Nephrology Results - Labs Result Diagrams: 06/19/20 05:52 06/20/20 08:19 Lab results: WBC 8.2 thou/uL (4.8-10.8) 06/19/20 05:52 Hgb 13.9 g/dL (14.0-18.0) L 06/19/20 05:52 Hct 42.4 % (42.0-52.0) 06/19/20 05:52 MCV 97.6 fL (78.0-98.0) 06/19/20 05:52 Plt Count 423 thou/uL (130-400) H 06/19/20 05:52 Neutrophils % 90.2 % (42.0-75.0) H 06/14/20 05:46 Band Neuts % (Manual) 2 % (5-11) L 06/16/20 06:14 ESR Westergren 38 mm/hr (Less than 20) H 06/12/20 17:10 Sodium 139 mmol/L (136-145) 06/20/20 08:19 Potassium 4.3 mmol/L (3.5-5.1) 06/20/20 08:19 Chloride 98 mmol/L (98-107) 06/20/20 08:19 Carbon Dioxide 33 mmol/L (22-29) H 06/20/20 08:19 BUN 24 mg/dL (8.4-25.7) 06/20/20 08:19 Creatinine 0.76 mg/dL (0.7-1.3) 06/20/20 08:19 Glucose 98 mg/dL (70-105) 06/20/20 08:19 Calcium 8.8 mg/dL (7.8-10.44) 06/20/20 08:19 Total Bilirubin 0.8 mg/dL (0.2-1.2) 06/17/20 07:26 AST 94 U/L (5-34) H 06/17/20 07:26 ALT 77 U/L (8-55) H 06/17/20 07:26 Alkaline Phosphatase 67 U/L (40-110) 06/17/20 07:26 Troponin I 0.012 ng/mL (< 0.028) 06/12/20 14:49 C-Reactive Protein 3.24 mg/dL (= or < 0.5) H 06/18/20 05:47 B-Natriuretic Peptide 112.5 pg/mL (0-100) H 06/12/20 14:49 Serum Total Protein 6.2 g/dL (6.0-8.3) 06/17/20 07:26 Albumin 2.9 g/dL (3.5-5.0) L 06/17/20 07:26 Sodium 139 mmol/L (136-145) 06/20/20 08:19 Potassium 4.3 mmol/L (3.5-5.1) 06/20/20 08:19 Chloride 98 mmol/L (98-107) 06/20/20 08:19 Carbon Dioxide 33 mmol/L (22-29) H 06/20/20 08:19 Anion Gap 12 mmol/L (10-20) 06/20/20 08:19 BUN 24 mg/dL (8.4-25.7) 06/20/20 08:19 Creatinine 0.76 mg/dL (0.7-1.3) 06/20/20 08:19 Glucose 98 mg/dL (70-105) 06/20/20 08:19 Calcium 8.8 mg/dL (7.8-10.44) 06/20/20 08:19 Albumin 2.9 g/dL (3.5-5.0) L 06/17/20 07:26 Nephrology AP PN - Plan ASSESSMENT Hyponatremia: Sodium continue to trend up with fluid restriction and salt tablet. Na today is 139. 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 Bilateral leg edema. Improved with lasix. ? CHF. PLAN Substitute nifedipine with lisinopril Continue salt tablet, lasix and fluid restriction. Can be discharged from nephrology point of view. Follow up in the office on 07/02/20 at 1030 am. Other treatments as per primary attending..
--- NOTE | 2020-06-20 11:55 | PDOC.DS.DS ---
Provider - Provider Date of Admission: 06/12/20 15:52 Date of Discharge: 06/20/20 Admitting Provider: Rehan Burrell MD Consultations: Nephrology (Dr. Ontiveros) Primary Care Physician: Ross Joyce MD Course - Hospital Course Hospital Course: The patient is a pleasant 54 years old gentleman who has significant past medical histories of atrial fibrillation status post ablation, hypertension, GERD, SIADH, who presented to the ED with complaint of short of breath. Patient apparently was discharged home 2 days prior to admission for hyponatremia, and mild COVID-19 pneumonia. However, his symptom was worsening, for that reason he came back to the ED for further evaluation. He was tested for Covid on 06/07/2020. He was ultimately admitted to hospitalist service. Patient was started on Decadron, empiric IV antibiotics, and along with ancillary treatments for his COVID-19 pneumonia. Patient responded quite well, he was able to wean down to 2 L via nasal cannula. Additionally, nephrology was consulted with regard to his SIADH/hyponatremia. His sodium has been corrected. Patient completed the course of remdesivir. At this time, he is feeling well. He will be discharged home with home O2 2L, and along with taper steroid. F ollow-up with his nephrology as well as PCP in 1 to 2 weeks Pertinent Studies: Chest x-ray showed bilateral pneumonia Procedures: None Resuscitation Status: 06/12/20 16:18 Resuscitation Status Routine Co-Sign Provider: Resuscitation Status: FULL: Full Resuscitation - Labs Lab Results: 06/19/20 05:52 06/20/20 08:19 Abnormal Lab Results - Last 48 hrs 06/19/20 05:52: Ferritin 604.06 H 06/19/20 05:52: D-Dimer 4.20 H 06/19/20 05:52: Carbon Dioxide 30 H 06/19/20 05:52: RBC 4.35 L, Hgb 13.9 L, MCH 31.9 H, Plt Count 423 H 06/20/20 06:15: Ferritin 506.18 H 06/20/20 06:15: D-Dimer 3.44 H 06/20/20 08:19: Carbon Dioxide 33 H - Physical Exam Vitals: Vital Signs (12 hours) Temp Pulse Resp BP BP Pulse Ox 06/20/20 08:46 99 06/20/20 07:41 59 L 115/71 06/20/20 07:35 97.6 F 55 L 16 115/71 99 06/20/20 00:11 98 Weight Weight 230 lb Most Recent Monitor Data Heart Rate from ECG 88 NIBP 182/102 Respiration from ECG 22 Physical Exam: The patient was seen and examined on the day of discharge. PHYSICAL EXAM: General Appearance: Alert, oriented, resting comfortably, no apparent distress, well developed/nourished. HEENT: Normocephalic/atraumatic, moist mucous membrane, normal ENT inspection, normal tones. PERRLA, no scleral icterus, normal conjunctiva Neck: Supple, normal inspection, no JVD Respiratory: Lungs are clear bilaterally, normal breath sounds, no accessory muscle use Cardiovascular: Regular rate, regular rhythm, no murmur, no rubs Abdomen: Soft, nontender, nondistended, normal bowel sounds, no organomegaly, no guarding no rebound Back: Normal inspection, no CVA tenderness Extremities: No clubbing, no cyanosis, no edema Psych/Mental Status: Normal affect, speech, non-pressured, AAO x 3 Neurologic: CN II-XII are intact. Skin: Warm/Dry, Normal Color, no rashes Problem - Problem (1) Acute respiratory failure with hypoxia Code(s): J96.01 - ACUTE RESPIRATORY FAILURE WITH HYPOXIA Status: Acute (2) Pneumonia due to COVID-19 virus Code(s): U07.1 - COVID-19; J12.89 - OTHER VIRAL PNEUMONIA Status: Acute (3) Alcohol abuse Code(s): F10.10 - ALCOHOL ABUSE, UNCOMPLICATED Status: Chronic (4) HTN (hypertension) Code(s): I10 - ESSENTIAL (PRIMARY) HYPERTENSION Status: Chronic Qualifiers: Hypertension type: essential hypertension Qualified Code(s): I10 - Essential (primary) hypertension (5) Hyponatremia Code(s): E87.1 - HYPO-OSMOLALITY AND HYPONATREMIA Status: Acute - Time spent with Patient (mins): 35 Plan - Discharge Medications Prescriptions: guaiFENesin/Codeine Phosphate [Robitussin AC] 10 ml PO Q4HR PRN #120 ml PRN Reason: Cough Aspirin 325 mg PO DAILY #30 tab Furosemide [Lasix] 20 mg PO DAILY PRN #30 tab PRN Reason: Edema predniSONE 10 mg PO QAM-WM #30 tab Home Medications: Medication Instructions Recorded Confirmed Type Multivitamin [Multivitamins] 1 cap PO DAILY 04/17/16 06/13/20 History Omeprazole 20 mg PO DAILY 04/17/16 06/13/20 History Aspirin Chewable [Aspirin Chewable 81 mg PO DAILY 06/09/20 06/13/20 History Tablet] Benzonatate [Tessalon] 100 mg PO TID PRN #30 cap 06/10/20 06/13/20 Rx Melatonin 10 mg PO HS PRN #20 tab 06/10/20 06/13/20 Rx guaiFENesin/Codeine Phosphate 10 ml PO Q4HR PRN #150 ml 06/10/20 06/13/20 Rx [Robitussin AC] Metoprolol Succinate 200 mg PO DAILY 06/13/20 06/13/20 History Aspirin 325 mg PO DAILY #30 tab 06/20/20 Rx Furosemide [Lasix] 20 mg PO DAILY PRN #30 tab 06/20/20 Rx guaiFENesin/Codeine Phosphate 10 ml PO Q4HR PRN #120 ml 06/20/20 Rx [Robitussin AC] predniSONE 10 mg PO QAM-WM #30 tab 06/20/20 Rx Allergies: Penicillins Allergy (Verified 06/09/20 07:33) Rash - Follow up Plan Referrals: [facility] [Other] ([facility] ([place], [place]) will be delivering a portable oxygen unit to the hospital for discharge today. As you leave the hospital, you will need to contact [facility] office at [phone] to let them know you are heading home from the hospital so that they can coordinate delivery of your home oxygen concentrator unit to your home in [place] today. ) Ross Joyce MD [Primary Care Provider] - 7 Days Arelis Ontiveros MD [Active] - 07/02/20 10:30 am Disposition: HOME Quality - Care Measures CORE MEASURES:: N/A
--- NOTE | 2020-06-20 16:54 | EKG ---
Test Reason : SOB Blood Pressure : / mmHG Vent. Rate : 079 BPM Atrial Rate : 079 BPM P-R Int : 194 ms QRS Dur : 092 ms QT Int : 392 ms P-R-T Axes : 019 052 053 degrees QTc Int : 449 ms Sinus rhythm with Premature supraventricular complexes Otherwise normal ECG Confirmed by LIZANDRO AMBROSIO ([id number]), editorial director CHAVEZ DOMINGO ([id number]) on 06/20/2020 4:54:11 PM Referred By: GEORGES Confirmed By:LIZANDRO Valenzuela
[2020-06-20] MEDS: Azithromycin 250 MG TAB PO SCH (17:13)
[2020-06-20] MEDS: cefTRIAXone\\ROCEPHIN 1 GM in Sodium Chloride 0.9% 100 ML IVPB SCH (17:13)
[2020-06-20] MEDS: guaiFENesin/Codeine 200 mg/20 mg 10 ml Cup PO PRN (22:29)
[2020-06-21 06:39] LABS: Anion Gap 11 mmol/L (10-20); BUN (Urea Nitrogen) 18 mg/dL (8.4-25.7); Calc. Creatinine Clearance 195 mL/min (70-130); Calcium 8.5 mg/dL (7.8-10.44); Carbon Dioxide 30 mmol/L (22-29); Chloride 100 mmol/L (98-107); Glucose 94 mg/dL (70-105); Potassium 4.2 mmol/L (3.5-5.1); Sodium 137 mmol/L (136-145)
[2020-06-21] MEDS ORDERED: Furosemide 40 MG TAB PO SCH (09:00)
[2020-06-21] MEDS ORDERED: Lisinopril 10 MG TAB PO SCH (09:00)
[2020-06-21] MEDS: Dexamethasone 4 MG TAB PO SCH (09:12)
[2020-06-21] MEDS: Multivit, Therapeutic 1 TAB PO SCH (09:13)
[2020-06-21] MEDS: Aspirin Chewable 81 MG TAB PO SCH (09:13)
[2020-06-21] MEDS: Zinc Sulfate 220 MG CAP PO SCH (09:13)
[2020-06-21] MEDS: Senokot S 8.6-50 MG TAB PO SCH (09:13)
[2020-06-21] MEDS: Ascorbic Acid 500 mg Chewable Tablet PO SCH (09:13)
[2020-06-21] MEDS: Sodium Chloride 1 GM TAB PO SCH (09:14)
[2020-06-21] MEDS: Benzonatate 100 MG CAP PO SCH (09:14)
[2020-06-21] MEDS: Enoxaparin Sodium 40 MG/0.4 ML SYRINGE SC SCH (09:14)
[2020-06-21] MEDS: Polyethylene Glycol 3350 17 GM Packet PO SCH (10:03)
[2020-06-21 13:57] VITALS: BP 132/72; TEMP 98
--- NOTE | 2020-06-21 16:23 | PDOC.HOSPP ---
- Subjective Subjective: Patient was supposed to be discharged yesterday, however, unable to arrange his home O2. No acute events overnight - Objective Vital Signs & Weight: Vital Signs (12 hours) Temp Pulse Resp BP BP Pulse Ox 06/21/20 13:55 98.0 F 60 18 132/72 98 06/21/20 09:14 133/83 06/21/20 09:02 97.6 F 53 L 20 133/83 97 Weight Weight 230 lb Most Recent Monitor Data Heart Rate from ECG 88 NIBP 182/102 Respiration from ECG 22 I&O: 06/20/20 06/21/20 06/22/20 06:59 06:59 06:59 Intake Total 1260 580 Balance 1260 580 Result Diagrams: 06/19/20 05:52 06/21/20 05:23 Radiology Reviewed by me: Yes EKG Reviewed by me: Yes - Exam General Appearance: NAD Eye: PERRL ENT: normocephalic atraumatic Neck: supple Heart: RRR Respiratory: CTAB, no wheezes Gastrointestinal: soft, non-tender Extremities: no cyanosis Skin: normal turgor Neurological: cranial nerve grossly intact Musculoskeletal: normal tone, normal strength Psychiatric: normal affect, normal behavior, A&O x 3 Hosp A/P (1) Acute respiratory failure with hypoxia Code(s): J96.01 - ACUTE RESPIRATORY FAILURE WITH HYPOXIA Status: Acute (2) Pneumonia due to COVID-19 virus Code(s): U07.1 - COVID-19; J12.89 - OTHER VIRAL PNEUMONIA Status: Acute (3) Alcohol abuse Code(s): F10.10 - ALCOHOL ABUSE, UNCOMPLICATED Status: Chronic (4) HTN (hypertension) Code(s): I10 - ESSENTIAL (PRIMARY) HYPERTENSION Status: Chronic Qualifiers: Hypertension type: essential hypertension Qualified Code(s): I10 - Essen tial (primary) hypertension (5) Hyponatremia Code(s): E87.1 - HYPO-OSMOLALITY AND HYPONATREMIA Status: Acute - Plan d/w CM, hopefully able to arrange his home O2 today. Please refer to my dc summary for details of hospital course.
== END 2020-06-21 14:33 | disposition home or self-care (01) | DRG 177 ==
LOC: ERS 14:01 → T4-B 15:52
PROVIDERS: ADMIT Internal Medicine; ATTEND Family Medicine
PROC: 8E0ZXY6 Isolation (ICD-10-PCS; 2020-06-12)
PROC: XW13325 Transfusion of Convalescent Plasma (Nonautologous) into Peripheral Vein, Percutaneous Approach, New Technology Group 5 (ICD-10-PCS; principal; 2020-06-13)
PROC: XW033E5 Introduction of Remdesivir Anti-infective into Peripheral Vein, Percutaneous Approach, New Technology Group 5 (ICD-10-PCS; 2020-06-15)
DX: U07.1 COVID-19 (principal); J96.01 Acute respiratory failure with hypoxia; J12.82 Pneumonia due to coronavirus disease 2019; E22.2 Syndrome of inappropriate secretion of antidiuretic hormone; I48.91 Unspecified atrial fibrillation; I10 Essential (primary) hypertension; F17.220 Nicotine dependence, chewing tobacco, uncomplicated; K21.9 Gastro-esophageal reflux disease without esophagitis; F10.10 Alcohol abuse, uncomplicated; R60.0 Localized edema; Z88.0 Allergy status to penicillin; Z79.82 Long term (current) use of aspirin; Z79.899 Other long term (current) drug therapy
CPT/HCPCS: 36415; 36430; 71045; 80048; 80053; 82728; 83615; 83880; 83930; 83935; 84133; 84300; 84484; 85025; 85027; 85379; 85652; 86140; 86850; 86900; 86901; 93005; 96374; J0360; J0456; J0696; J1100; J1650; J1940; J3490; J7050; J8540; P9017; U0002

== ENCOUNTER 2021-02-23 10:51 | Outpatient (CLI) | payer OTHER | END 2021-02-23 10:52 | disposition home or self-care (01) | LOC: BICRAD 10:51 | PROVIDERS: ATTEND Neurological Surgery | DX: M54.2 Cervicalgia (principal); M47.812 Spondylosis without myelopathy or radiculopathy, cervical region | CPT/HCPCS: 72050 ==

== ENCOUNTER 2021-03-08 11:47 | Day surgery (SDC) | payer OTHER ==
[2021-03-05 10:11] VITALS: BMI 33.4
[2021-03-08] MEDS ORDERED: Fentanyl 100 MCG/2 ML VIAL ONE (12:27)
[2021-03-08] MEDS ORDERED: Midazolam HCl 5 mg/5 ml Vial ONE (12:28)
== END 2021-03-08 13:55 | disposition home or self-care (01) ==
LOC: MRI 11:47
PROVIDERS: ATTEND Specialist
DX: M50.122 Cervical disc disorder at C5-C6 level with radiculopathy (principal); M25.78 Osteophyte, vertebrae; M48.02 Spinal stenosis, cervical region; M48.03 Spinal stenosis, cervicothoracic region; Z79.02 Long term (current) use of antithrombotics/antiplatelets; Z79.82 Long term (current) use of aspirin; Z79.899 Other long term (current) drug therapy; Z88.0 Allergy status to penicillin
CPT/HCPCS: 72141; J2250; J3010